=== PATIENT | female | born 1960 | race Caucasian/White ===

== ENCOUNTER 2016-04-01 10:36 | Outpatient (RCR) | payer MEDICARE, MEDICAID ==
--- OUTSIDE RECORDS SUMMARY | 2016-01-19 08:51 | XMS REPORT | Continuity of Care Document ---
Author Author [facility] Organization [facility] Address Unknown Phone Unavailable Care Team Providers Care Wide Area Network Administrator Name Role Phone NohemylorieRogelio PCP [phone] Source Comments Some departments are not documenting in the electronic medical record. If you do not see the information that you expected, contact Release of Information in the Health Information Management department at [phone] for further assistance in locating additional records.[facility] Active Allergies and Adverse Reactions No Known Allergies Current Medications Prescription Sig. Disp. Refills Start End Date Status Date promethazine (PHENERGAN) Take 25 mg by mouth every Active 25 mg tablet 6 hours as needed for Nausea. loperamide (IMODIUM) 2 mg Take 2 mg by mouth as Active capsule Needed for Diarrhea. baclofen (LIORESAL) 10 mg Take 10 mg by mouth three Active tablet times daily. ondansetron (ZOFRAN) 8 mg Take 8 mg by mouth every Active tablet 8 hours as needed for Nausea. fentaNYL (DURAGESIC) 75 Apply 1 Patch to top of Active mcg/hr patch skin as directed every 72 hours vitamins, multi stress Take 1 Tab by mouth Active formula (STRESS 600) tab daily. LORazepam (ATIVAN) 1 mg Take 1 mg by mouth every Active tablet 4 hours as needed for Nausea, Vomiting or Other.... potassium chloride(+) Take 10 mEq by mouth Active (MICRO-K) 10 mEq capsule daily. zolpidem (AMBIEN) 10 mg Take 10 mg by mouth at Active tablet bedtime as needed for Sleep. PARoxetine (PAXIL) 20 mg Take 20 mg by mouth Active tablet daily. levothyroxine (SYNTHROID) Take 75 mcg by mouth Active 75 mcg tablet daily. diazepam (VALIUM) 10 mg Take 10 mg by mouth every Active tablet 6 hours as needed for Anxiety. Active Problems Problem Noted Date Malignant neoplasm of sigmoid colon (HCC) 09/24/2015 Overview: 10/03/2011 sigmoid colon biopsy showing moderately differentiated adenocarcinoma 10/04/2011 surgery with sigmoid colectomy and small bowel resection, pathology revealed moderately differentiated adenocarcinoma extending through the muscularis into subserosal tissue, 19 lymph nodes were negative, KRAS not mutated, microsatellite instability stable 11/14/2011-02/14/2012 received FOLFOX chemotherapy x5 cycles with dose reduction 06/30/2015 PET scan: hypermetabolic masses in the pelvis abutting the colon proximal to the anastomosis 07/12/2005 in surgery small bowel resection, Munoz's procedure, removal of Prolene mesh 07/12/2005 and pathology with moderately differentiated adenocarcinoma within the small bowel wall consistent with metastatic colon carcinoma, margins free of tumor. No evidence of tumor within the omental fat 09/08/2015 FOLFOX plus Vectibix cycle 1, at about 90% doses 09/23/2015 FOLFOX plus Vectibix cycle 2 at 60% doses 09/25/2015 first visit at [facility], discussed use of Lomotil for diarrhea and possible imaging baseline and possible therapeutic options with the patient, see note Adult onset hypothyroidism 09/24/2015 Mood disorder (HCC) 09/24/2015 Overview: 09/25/2015 patient appears to have a significant history of anxiety and mood disorder. It looks like distress and side effects were chemotherapy have exacerbated this. Chronic hepatitis C without hepatic coma (HCC) 09/24/2015 Overview: Completed a course of Pegasys and ribavirin reported last hepatitis C viral load was undetectable History of drug abuse 09/24/2015 Overview: Past history of cocaine and marijuana use, IV drug abuse over 20 years ago Social History Tobacco Use Types Packs/Day Years Used Date Former Smoker Alcohol Use Drinks/Week oz/Week Comments No 0 Standard 0.0 drinks or equivalent Last Filed Vital Signs Vital Sign Reading Time Taken Blood Pressure 112/78 09/25/2015 11:31 AM CDT Pulse 91 09/25/2015 11:31 AM CDT Temperature 36.6 C (97.9 F) 09/25/2015 11:31 AM CDT Respiratory Rate 20 09/25/2015 11:31 AM CDT Height 1.613 m (5' 3.5") 09/25/2015 11:31 AM CDT Weight 58.06 kg (128 lb) 09/25/2015 11:31 AM CDT Body Mass Index 22.32 09/25/2015 11:31 AM CDT Oxygen Saturation 99% 09/25/2015 11:31 AM CDT Plan of Care Health Maintenance Due Date Last Done Comments Hepatitis C Screening 1959 Physical (Comprehensive) 1966 Exam Pertussis Vaccine 1970 Tetanus Vaccine 02/18/1976 Cervical Cancer Screening 02/18/1980 Breast Cancer Screening 1999 Colorectal Cancer 2009 Screening Influenza Vaccine 12/17/2015 Results from Last 3 Months Not on file
[2016-01-19 09:10] LABS: BASOPHILS # (AUTO) 0.1 10^3/uL (0.0-0.1); BASOPHILS % (AUTO) 1 % (0-10); EOSINOPHILS # (AUTO) 0.2 10^3/uL (0.0-0.3); EOSINOPHILS % (AUTO) 3 % (0-10); LYMPHOCYTES # (AUTO) 2.2 X 10^3 (1.0-4.0); LYMPHOCYTES % (AUTO) 43 % (12-44); MEAN CORPUSCULAR HEMOGLOBIN 27 PG (25-34); MEAN CORPUSCULAR HGB CONC 32 G/DL (32-36); MEAN CORPUSCULAR VOLUME 85 FL (80-99); MEAN PLATELET VOLUME 10.8 FL (7.4-10.4); MONOCYTES # (AUTO) 0.5 X 10^3 (0.0-1.0); MONOCYTES % (AUTO) 9 % (0-12); NEUTROPHILS # (AUTO) 2.3 X 10^3 (1.8-7.8); NEUTROPHILS % (AUTO) 44 % (42-75); PLATELET COUNT 151 10^3/uL (130-400); RED BLOOD COUNT 4.21 10^6/uL (4.35-5.85); RED CELL DISTRIBUTION WIDTH 16.4 % (10.0-14.5); WHITE BLOOD COUNT 5.2 10^3/uL (4.3-11.0)
[2016-01-19 09:37] LABS: ALANINE AMINOTRANSFERASE 8 U/L (0-55); ALBUMIN 3.5 G/DL (3.2-4.5); ANION GAP 10 MMOL/L (5-14); ASPARTATE AMINO TRANSFERASE 18 U/L (5-34); BILIRUBIN,TOTAL 0.4 MG/DL (0.1-1.0); BLOOD UREA NITROGEN 6 MG/DL (7-18); BUN/CREATININE RATIO 9; CALCIUM 8.9 MG/DL (8.5-10.1); CARBON DIOXIDE 22 MMOL/L (21-32); CHLORIDE 108 MMOL/L (98-107); GFR ESTIMATED > 60; GLUCOSE 84 MG/DL (70-105); MAGNESIUM 2.1 MG/DL (1.8-2.4); POTASSIUM 3.6 MMOL/L (3.6-5.0); SODIUM 140 MMOL/L (135-145); TOTAL PROTEIN 6.5 G/DL (6.4-8.2)
[2016-01-19 10:28] LABS: BILIRUBIN,URINE NEGATIVE (NEGATIVE); KETONES,URINE NEGATIVE (NEGATIVE); LEUKOCYTE ESTERASE ,URINE 1+ (NEGATIVE); NITRITE,URINE NEGATIVE (NEGATIVE); PH,URINE 7 (5-9); PROTEIN,URINE NEGATIVE (NEGATIVE); UROBILINOGEN,URINE NORMAL (NORMAL)
[2016-02-02 09:41] LABS: BASOPHILS % (AUTO) 1 % (0-10); EOSINOPHILS # (AUTO) 0.1 10^3/uL (0.0-0.3); EOSINOPHILS % (AUTO) 3 % (0-10); LYMPHOCYTES # (AUTO) 2.2 X 10^3 (1.0-4.0); LYMPHOCYTES % (AUTO) 56 % (12-44); MEAN CORPUSCULAR HEMOGLOBIN 28 PG (25-34); MEAN CORPUSCULAR HGB CONC 32 G/DL (32-36); MEAN CORPUSCULAR VOLUME 86 FL (80-99); MEAN PLATELET VOLUME 11.1 FL (7.4-10.4); MONOCYTES # (AUTO) 0.3 X 10^3 (0.0-1.0); MONOCYTES % (AUTO) 8 % (0-12); NEUTROPHILS # (AUTO) 1.3 X 10^3 (1.8-7.8); NEUTROPHILS % (AUTO) 32 % (42-75); PLATELET COUNT 170 10^3/uL (130-400); RED BLOOD COUNT 4.15 10^6/uL (4.35-5.85); RED CELL DISTRIBUTION WIDTH 16.6 % (10.0-14.5); WHITE BLOOD COUNT 3.9 10^3/uL (4.3-11.0)
[2016-02-02 10:05] LABS: ALANINE AMINOTRANSFERASE 11 U/L (0-55); ALBUMIN 3.6 G/DL (3.2-4.5); ANION GAP 12 MMOL/L (5-14); ASPARTATE AMINO TRANSFERASE 17 U/L (5-34); BILIRUBIN,TOTAL 0.2 MG/DL (0.1-1.0); BLOOD UREA NITROGEN 5 MG/DL (7-18); BUN/CREATININE RATIO 8; CARBON DIOXIDE 21 MMOL/L (21-32); CHLORIDE 106 MMOL/L (98-107); CREATININE SERUM 0.64 MG/DL (0.60-1.30); GFR ESTIMATED > 60; GLUCOSE 94 MG/DL (70-105); MAGNESIUM 2.1 MG/DL (1.8-2.4); POTASSIUM 3.8 MMOL/L (3.6-5.0); SODIUM 139 MMOL/L (135-145); TOTAL PROTEIN 6.7 G/DL (6.4-8.2)
[2016-02-09 10:36] LABS: BASOPHILS # (AUTO) 0.1 10^3/uL (0.0-0.1); BASOPHILS % (AUTO) 2 % (0-10); EOSINOPHILS # (AUTO) 0.1 10^3/uL (0.0-0.3); EOSINOPHILS % (AUTO) 3 % (0-10); LYMPHOCYTES # (AUTO) 1.5 X 10^3 (1.0-4.0); LYMPHOCYTES % (AUTO) 40 % (12-44); MEAN CORPUSCULAR HEMOGLOBIN 27 PG (25-34); MEAN CORPUSCULAR HGB CONC 31 G/DL (32-36); MEAN CORPUSCULAR VOLUME 88 FL (80-99); MEAN PLATELET VOLUME 10.5 FL (7.4-10.4); MONOCYTES # (AUTO) 0.5 X 10^3 (0.0-1.0); MONOCYTES % (AUTO) 14 % (0-12); NEUTROPHILS # (AUTO) 1.5 X 10^3 (1.8-7.8); NEUTROPHILS % (AUTO) 42 % (42-75); PLATELET COUNT 208 10^3/uL (130-400); RED BLOOD COUNT 3.96 10^6/uL (4.35-5.85); RED CELL DISTRIBUTION WIDTH 17.3 % (10.0-14.5); WHITE BLOOD COUNT 3.7 10^3/uL (4.3-11.0)
[2016-02-09 11:05] LABS: ANION GAP 9 MMOL/L (5-14); BLOOD UREA NITROGEN 6 MG/DL (7-18); BUN/CREATININE RATIO 8; CALCIUM 8.7 MG/DL (8.5-10.1); CARBON DIOXIDE 25 MMOL/L (21-32); CHLORIDE 109 MMOL/L (98-107); CREATININE SERUM 0.76 MG/DL (0.60-1.30); GFR ESTIMATED > 60; GLUCOSE 90 MG/DL (70-105); MAGNESIUM 1.9 MG/DL (1.8-2.4); SODIUM 143 MMOL/L (135-145)
[2016-02-22 13:06] LABS: BASOPHILS % (AUTO) 1 % (0-10); EOSINOPHILS # (AUTO) 0.1 10^3/uL (0.0-0.3); EOSINOPHILS % (AUTO) 3 % (0-10); LYMPHOCYTES # (AUTO) 1.6 X 10^3 (1.0-4.0); LYMPHOCYTES % (AUTO) 41 % (12-44); MEAN CORPUSCULAR HEMOGLOBIN 28 PG (25-34); MEAN CORPUSCULAR HGB CONC 31 G/DL (32-36); MEAN CORPUSCULAR VOLUME 88 FL (80-99); MEAN PLATELET VOLUME 10.8 FL (7.4-10.4); MONOCYTES # (AUTO) 0.4 X 10^3 (0.0-1.0); MONOCYTES % (AUTO) 9 % (0-12); NEUTROPHILS # (AUTO) 1.9 X 10^3 (1.8-7.8); NEUTROPHILS % (AUTO) 47 % (42-75); PLATELET COUNT 150 10^3/uL (130-400); RED BLOOD COUNT 3.92 10^6/uL (4.35-5.85); RED CELL DISTRIBUTION WIDTH 17.4 % (10.0-14.5)
[2016-02-22 13:32] LABS: ALANINE AMINOTRANSFERASE 10 U/L (0-55); ALBUMIN 3.5 G/DL (3.2-4.5); ANION GAP 7 MMOL/L (5-14); ASPARTATE AMINO TRANSFERASE 16 U/L (5-34); BILIRUBIN,TOTAL 0.3 MG/DL (0.1-1.0); BLOOD UREA NITROGEN 3 MG/DL (7-18); BUN/CREATININE RATIO 4; CALCIUM 8.8 MG/DL (8.5-10.1); CARBON DIOXIDE 27 MMOL/L (21-32); CHLORIDE 107 MMOL/L (98-107); CREATININE SERUM 0.68 MG/DL (0.60-1.30); GFR ESTIMATED > 60; GLUCOSE 86 MG/DL (70-105); POTASSIUM 3.8 MMOL/L (3.6-5.0); SODIUM 141 MMOL/L (135-145); TOTAL PROTEIN 6.1 G/DL (6.4-8.2)
[2016-03-15 13:33] LABS: BASOPHILS % (AUTO) 1 % (0-10); EOSINOPHILS # (AUTO) 0.2 10^3/uL (0.0-0.3); EOSINOPHILS % (AUTO) 3 % (0-10); LYMPHOCYTES # (AUTO) 1.8 X 10^3 (1.0-4.0); LYMPHOCYTES % (AUTO) 33 % (12-44); MEAN CORPUSCULAR HEMOGLOBIN 28 PG (25-34); MEAN CORPUSCULAR HGB CONC 32 G/DL (32-36); MEAN CORPUSCULAR VOLUME 89 FL (80-99); MEAN PLATELET VOLUME 10.9 FL (7.4-10.4); MONOCYTES # (AUTO) 0.6 X 10^3 (0.0-1.0); MONOCYTES % (AUTO) 11 % (0-12); NEUTROPHILS % (AUTO) 53 % (42-75); PLATELET COUNT 186 10^3/uL (130-400); RED BLOOD COUNT 4.04 10^6/uL (4.35-5.85); RED CELL DISTRIBUTION WIDTH 17.1 % (10.0-14.5); WHITE BLOOD COUNT 5.7 10^3/uL (4.3-11.0)
[2016-03-15 13:58] LABS: ALANINE AMINOTRANSFERASE 12 U/L (0-55); ALBUMIN 3.4 G/DL (3.2-4.5); ANION GAP 6 MMOL/L (5-14); ASPARTATE AMINO TRANSFERASE 23 U/L (5-34); BILIRUBIN,TOTAL 0.4 MG/DL (0.1-1.0); BLOOD UREA NITROGEN 9 MG/DL (7-18); BUN/CREATININE RATIO 13; CALCIUM 8.5 MG/DL (8.5-10.1); CARBON DIOXIDE 26 MMOL/L (21-32); CHLORIDE 109 MMOL/L (98-107); CREATININE SERUM 0.69 MG/DL (0.60-1.30); GFR ESTIMATED > 60; GLUCOSE 91 MG/DL (70-105); MAGNESIUM 1.9 MG/DL (1.8-2.4); POTASSIUM 3.8 MMOL/L (3.6-5.0); SODIUM 141 MMOL/L (135-145); TOTAL PROTEIN 5.8 G/DL (6.4-8.2)
[2016-03-30 09:34] LABS: BASOPHILS % (AUTO) 1 % (0-10); EOSINOPHILS # (AUTO) 0.2 10^3/uL (0.0-0.3); EOSINOPHILS % (AUTO) 4 % (0-10); LYMPHOCYTES # (AUTO) 1.8 X 10^3 (1.0-4.0); LYMPHOCYTES % (AUTO) 36 % (12-44); MEAN CORPUSCULAR HEMOGLOBIN 29 PG (25-34); MEAN CORPUSCULAR HGB CONC 32 G/DL (32-36); MEAN CORPUSCULAR VOLUME 90 FL (80-99); MEAN PLATELET VOLUME 11.3 FL (7.4-10.4); MONOCYTES # (AUTO) 0.5 X 10^3 (0.0-1.0); MONOCYTES % (AUTO) 9 % (0-12); NEUTROPHILS # (AUTO) 2.6 X 10^3 (1.8-7.8); NEUTROPHILS % (AUTO) 51 % (42-75); PLATELET COUNT 157 10^3/uL (130-400); RED BLOOD COUNT 4.14 10^6/uL (4.35-5.85); RED CELL DISTRIBUTION WIDTH 16.1 % (10.0-14.5)
[2016-03-30 10:09] LABS: ALANINE AMINOTRANSFERASE 25 U/L (0-55); ALBUMIN 3.6 G/DL (3.2-4.5); ANION GAP 13 MMOL/L (5-14); ASPARTATE AMINO TRANSFERASE 63 U/L (5-34); BILIRUBIN,TOTAL 0.3 MG/DL (0.1-1.0); BLOOD UREA NITROGEN 6 MG/DL (7-18); BUN/CREATININE RATIO 9; CALCIUM 8.6 MG/DL (8.5-10.1); CARBON DIOXIDE 20 MMOL/L (21-32); CHLORIDE 108 MMOL/L (98-107); CREATININE SERUM 0.67 MG/DL (0.60-1.30); GFR ESTIMATED > 60; GLUCOSE 105 MG/DL (70-105); MAGNESIUM 1.8 MG/DL (1.8-2.4); POTASSIUM 3.6 MMOL/L (3.6-5.0); SODIUM 141 MMOL/L (135-145); TOTAL PROTEIN 6.3 G/DL (6.4-8.2)
[~2016-04-01] VITALS: Ht 160 cm; Wt 61.2 kg
[~2016-04-01 10:36] MED LIST: ACETAMINOPHEN 325 MG TAB (TYLENOL) CANCER CTR PO PRN; ATROPINE INJ 0.4 MG/ML SDV (CANCER CENTER) INJ SCH; BACL10TA PO; CPR500T PO; CYCL10TA9 PO; D5W IV SCH; DIAZ-345 PO; DIAZ10TA3 PO; DICL100G13 TOP; ESTR1TAB24 PO; ESTR1TAB27 PO; FAMOTIDINE 20MG/2ML IV (CANCER CTR) IV SCH; FENT1PAT60 TD; FLC150T PO; FLU TRIvalent (5 YOA+) 2016-17 (CANCER CTR) 0.5 ML IM ONE; FLUOROURACIL IV SCH; FOSAPREPITANT 150 MG/NS 150 MG IVPB (CANCER CTR) IV PRN; HYDR-3583 PO; HYDR-3820 PO; IRINOTECAN HCL IV SCH; LEUCOVORIN CALCIUM IV SCH; LEVO75TA57 PO; LEVO75TA6 PO; LORazepam 0.5 MG (ATIVAN) TABLET CANCER CTR PO PRN; MIRT30TA6 PO; NS IV 1000 ML (CANCER CTR) IV SCH; NS IV SCH; OMEP20CA12 PO; OMEP20TA7 PO; ONDA8TAB13 PO; ONDANSETRON MDV (CANCER CENTER 16 MG, DEXAMETHASONE PF INJ (CANCER C 12 MG in NS (IVPB)... IV SCH; OXYC-12 PO; OXYC-197 PO; PANITUMUMAB IV SCH; PARO20TA5 PO; PARO20TA57 PO; PROM12.59 PO; PROM25TA14 PO; PRX20T PO; QTP25T PO; TRM50T PO; ZOLP10TA PO; ZOLP10TA5 PO; [UNRECOGNIZED DRUG - OTHER] IV SCH; diphenhydrAMINE 25 MG TAB (BENADRYL) CANCER CENTER PO SCH
[2016-04-13] MEDS ORDERED: POTA10TA10 PO ×2 (08:45)
[2016-04-13] MEDS ORDERED: TR1C15 TOP (08:45)
[2016-04-13] MEDS ORDERED: DOXY100C2 PO ×2 (08:45)
[2016-04-13] MEDS ORDERED: FENT1PAT10 TD ×2 (08:45)
[2016-04-13] MEDS ORDERED: DIAZ10TA3 PO ×2 (08:45)
[2016-04-13] MEDS ORDERED: ONDA8TAB12 PO ×2 (08:45)
[2016-04-13] MEDS ORDERED: LOPE2CAP PO ×2 (08:45)
[2016-04-25] MEDS ORDERED: Zolpidem Tartrate PO (14:37)
[2016-04-25] MEDS ORDERED: POTA10TA6 PO (14:37)
[2016-04-25] MEDS ORDERED: ONDA8TAB13 PO (14:37)
== END 2016-04-18 | disposition home or self-care (01) ==
LOC: ONC 10:36
PROVIDERS: ATTEND Internal Medicine Hematology & Oncology
DX: Z51.11 Encounter for antineoplastic chemotherapy (principal); C18.7 Malignant neoplasm of sigmoid colon; C78.4 Secondary malignant neoplasm of small intestine; D64.9 Anemia, unspecified; B18.2 Chronic viral hepatitis C; F32.9 Major depressive disorder, single episode, unspecified; R41.3 Other amnesia; M54.9 Dorsalgia, unspecified; R82.99 Other abnormal findings in urine; L27.1 Localized skin eruption due to drugs and medicaments taken internally; T45.1X5A Adverse effect of antineoplastic and immunosuppressive drugs, initial encounter; Z80.3 Family history of malignant neoplasm of breast; Z79.899 Other long term (current) drug therapy; Z92.21 Personal history of antineoplastic chemotherapy
CPT/HCPCS: 36591; 80048; 80053; 81000; 83735; 85025; 87088; 90471; 96360; 96367; 96368; 96375; 96411; 96413; 96415; 96417; 96521; 99213

== ENCOUNTER 2016-04-12 12:05 | Inpatient (IN) | payer MEDICARE, MEDICAID ==
[~2016-04-12] VITALS: Ht 160 cm; Wt 59.0 kg
[~2016-04-12 12:05] MED LIST changes: -ACETAMINOPHEN 325 MG TAB (TYLENOL) CANCER CTR PO PRN; -ATROPINE INJ 0.4 MG/ML SDV (CANCER CENTER) INJ SCH; -D5W IV SCH; -FAMOTIDINE 20MG/2ML IV (CANCER CTR) IV SCH; -FLU TRIvalent (5 YOA+) 2016-17 (CANCER CTR) 0.5 ML IM ONE; -FLUOROURACIL IV SCH; -FOSAPREPITANT 150 MG/NS 150 MG IVPB (CANCER CTR) IV PRN; -IRINOTECAN HCL IV SCH; -LEUCOVORIN CALCIUM IV SCH; -LORazepam 0.5 MG (ATIVAN) TABLET CANCER CTR PO PRN; -NS IV 1000 ML (CANCER CTR) IV SCH; -NS IV SCH; -ONDANSETRON MDV (CANCER CENTER 16 MG, DEXAMETHASONE PF INJ (CANCER C 12 MG in NS (IVPB)... IV SCH; -PANITUMUMAB IV SCH; -[UNRECOGNIZED DRUG - OTHER] IV SCH; -diphenhydrAMINE 25 MG TAB (BENADRYL) CANCER CENTER PO SCH
--- OUTSIDE RECORDS SUMMARY | 2016-04-12 12:11 | XMS REPORT | Continuity of Care Document ---
Author Author [facility] Organization [facility] Address Unknown Phone Unavailable Care Team Providers Care Java Sybase Developer Name Role Phone NohemylorieRogelio PCP [phone] Source Comments Some departments are not documenting in the electronic medical record. If you do not see the information that you expected, contact Release of Information in the Health Information Management department at [phone] for further assistance in locating additional records.[facility] Active Allergies and Adverse Reactions No Known [...] at 60% doses 09/25/2015 first visit at [facility], discussed use of Lomotil for diarrhea [...]
--- NOTE | 2016-04-12 13:36 | ED Abdominal Pain ---
General Stated Complaint: VOMITING ABD/BACK PAIN FEVER Source of Information: Patient, Family Exam Limitations: No Limitations History of Present Illness Time Seen By Provider: 13:34 Initial Comments Patient has stage IV colon cancer. She has had abdominal pain radiating through to her back for the past several weeks. She had a CAT scan ordered but has been too sick to go. She is nauseated but has not vomited. She has not eaten or drank much of anything. Patient reports a fever of 101. Denies cough. Patient and family want CT done today but did not want IV contrast. Allergies and Home Medications Allergies Coded Allergies: oxaliplatin (Verified Allergy, Severe, 01/07/16) Home Medications Baclofen 10 Mg Tablet 10 MG PO TID PRN PRN MUSCLE SPASMS (Reported) Diazepam 10 Mg Tablet 10 MG PO QID PRN PRN ANXIETY (Reported) Estradiol 1 Mg Tablet 1 MG PO DAILY (Reported) Fentanyl 1 Each Patch.td72 #5 100 MCG TD Q72H Prescribed by: UNRIA ALONSO on 07/27/15 1229 Hydrocodone/Acetaminophen 1 Each Tablet 1-2 EACH PO Q4H PRN PRN PAIN (Reported) Levothyroxine Sodium 75 Mcg Tablet 75 MG PO (Reported) Omeprazole 20 Mg Capsule.dr 20 MG PO DAILY (Reported) Ondansetron 8 Mg Tab.rapdis 8 MG PO Q8H PRN PRN NAUSEA/VOMITING (Reported) Oxycodone HCl/Acetaminophen 1 Each Tablet #40 1 EACH PO Q4H PRN PRN PAIN Prescribed by: NURIA ALONSO on 07/27/15 1230 Paroxetine HCl 20 Mg Tablet 40 MG PO DAILY (Reported) TAKES 2 (20 MG) TABLETS Zolpidem Tartrate 10 Mg Tablet 10 MG PO HS (Reported) Review of Systems Constitutional: fever malaise weakness EENTM: No Symptoms Reported Respiratory: No Symptoms Reported Cardiovascular: No Symptoms Reported Gastrointestinal: Abdominal Pain Nausea Poor AppetiteDenies Vomiting Genitourinary: No Symptoms Reported Musculoskeletal: no symptoms reported All Other Systems Reviewed Negative Unless Noted: Yes Past Nlufftl-Ymfrtm-Pubfbz Hx Patient Social History Former Smoker/When Quit: Apr 17, 2010 Recent Foreign Travel: No Contact w/Someone Who Travel: No Immunizations Up To Date Tetanus Booster (TDap): Unknown Date of Pneumonia Vaccine: Jul 19, 2011 Date of Influenza Vaccine: Jan 15, 2015 Surgeries HX Surgeries: Yes (HERNIA, CYST FROM NECK, OVARIAN CYST, COLON RESECTION) Surgeries: Appendectomy, Bowel Surgery, Gallbladder, Hysterectomy Respiratory Hx Respiratory Disorders: Yes (MILD COPD, ASTHMA A CHILD) Respiratory Disorders: COPD Cardiovascular Hx Cardiac Disorders: No Neurological Hx Neurological Disorders: No Reproductive System Hx Reproductive Disorders: No Genitourinary Hx Genitourinary Disorders: No Gastrointestinal Hx Gastrointestinal Disorders: Yes (HX COLON CANCER) Gastrointestinal Disorders: Hepatitis Musculoskeletal Hx Musculoskeletal Disorders: Yes Musculoskeletal Disorders: Arthritis, Chronic Back Pain Endocrine Hx Endocrine Disorders: Yes Endocrine Disorders: Hypothyroidsim HEENT HX ENT Disorders: No (GLASSES, FULL SET OF DENTURES) Cancer Hx Cancer: Yes Cancer: Colon Psychosocial Hx Psychiatric Problems: Yes Behavioral Health Disorders: Anxiety, Depression Integumentary HX Skin/Integumentary Disorder: No Skin/Integumentary Disorders: Pruritis Blood Transfusions Hx Blood Disorders: Yes (ANEMIA) Reviewed Nursing Assessment Reviewed/Agree w Nursing PMH: Yes Family Medical History Significant Family History: Heart Disease Family Medial History: Arthritis G8 BROTHER G8 SISTER FH: breast cancer 19 MOTHER Myocardial infarction 19 FATHER Physical Exam Vital Signs VS - Last 72 Hours, by Label 04/12/16 04/12/16 04/12/16 13:12 13:55 15:18 Temp 98.1 98.1 98.1 Pulse 86 Resp 18 B/P 105/65 Pulse Ox 99 O2 Delivery Room Air Capillary Refill : General Appearance: WD/WN mild distress HEENT: PERRL/EOMI pharynx normal Neck: supple Respiratory: lungs clear normal breath sounds Cardiovascular: regular rate, rhythm no edema Gastrointestinal: soft abnormal bowel sounds (decreased bowel sounds) distendedNo guarding, No rebound, tenderness (diffusely tender) other (left lower quadrant colostomy) Neurologic/Psychiatric: alert normal mood/affect Skin: normal color warm/dry Progress/Results/Core Measures Results/Orders Lab Results Laboratory Tests Test 04/12/16 13:45 04/12/16 14:10 Range/Units Activated Partial Thromboplast Time 46 H 24-35 SEC Alanine Aminotransferase (ALT/SGPT) 15 0-55 U/L Albumin 3.0 L 3.2-4.5 G/DL Alkaline Phosphatase 76 40-136 U/L Anion Gap 14 5-14 MMOL/L Anisocytosis SLIGHT Aspartate Amino Transf (AST/SGOT) 17 5-34 U/L BUN/Creatinine Ratio 16 Band Neutrophils 4 % Basophils # (Auto) 0.0 0.0-0.1 10^3/uL Basophils % (Manual) 0 % Basophils (%) (Auto) 0 0-10 % Blood Urea Nitrogen 9 7-18 MG/DL Calcium Level 8.4 L 8.5-10.1 MG/DL Carbon Dioxide Level 21 21-32 MMOL/L Chloride Level 98 98-107 MMOL/L Creatinine 0.58 L 0.60-1.30 MG/DL Eosinophils # (Auto) 0.0 0.0-0.3 10^3/uL Eosinophils % (Manual) 3 % Eosinophils (%) (Auto) 1 0-10 % Estimat Glomerular Filtration Rate > 60 Glucose Level 112 H 70-105 MG/DL Hematocrit 33 L 35-52 % Hemoglobin 10.9 L 11.5-16.0 G/DL INR Comment 1.4 0.8-1.4 Lipase 8 8-78 U/L Lymphocytes # (Auto) 1.1 1.0-4.0 X 10^3 Lymphocytes % (Manual) 47 % Lymphocytes (%) (Auto) 35 12-44 % Magnesium Level 1.3 L 1.8-2.4 MG/DL Mean Corpuscular Hemoglobin 29 25-34 PG Mean Corpuscular Hemoglobin Concent 33 32-36 G/DL Mean Corpuscular Volume 85 80-99 FL Mean Platelet Volume 11.3 H 7.4-10.4 FL Monocytes # (Auto) 0.7 0.0-1.0 X 10^3 Monocytes % (Manual) 24 % Monocytes (%) (Auto) 22 H 0-12 % Neutrophils # (Auto) 1.3 L 1.8-7.8 X 10^3 Neutrophils % (Manual) 22 % Neutrophils (%) (Auto) 41 L 42-75 % Platelet Count 161 130-400 10^3/uL Polychromasia SLIGHT Potassium Level 3.2 L 3.6-5.0 MMOL/L Prothrombin Time 17.3 H 12.2-14.7 SEC Red Blood Count 3.83 L 4.35-5.85 10^6/uL Red Cell Distribution Width 15.6 H 10.0-14.5 % Sodium Level 133 L 135-145 MMOL/L Spherocytes SLIGHT Total Bilirubin 0.8 0.1-1.0 MG/DL Total Protein 5.6 L 6.4-8.2 G/DL White Blood Count 3.1 L 4.3-11.0 10^3/uL Urine Bacteria FEW H /HPF Urine Bilirubin 1+ H NEGATIVE Urine Casts NONE /LPF Urine Clarity CLEAR Urine Color AYAN H Urine Crystals NONE /LPF Urine Culture Indicated YES Urine Glucose (UA) 1+ H NEGATIVE Urine Ketones 4+ H NEGATIVE Urine Leukocyte Esterase 1+ H NEGATIVE Urine Mucus MODERATE H /LPF Urine Nitrite NEGATIVE NEGATIVE Urine Protein 2+ H NEGATIVE Urine RBC 10-25 H /HPF Urine RBC (Auto) 4+ H NEGATIVE Urine Specific [place] 1.020 1.016-1.022 Urine Squamous Epithelial Cells 2-5 /HPF Urine Urobilinogen 4 H NORMAL MG/DL Urine WBC 2-5 /HPF Urine pH 6 5-9 My Orders Orders-JESSICA QUINONES MD Cbc With Automated Diff (04/12/16 13:32) Comprehensive Metabolic Panel (04/12/16 13:32) Lipase (04/12/16 13:32) Magnesium (04/12/16 13:32) Protime With Inr (04/12/16 13:32) Partial Thromboplastin Time (04/12/16 13:32) Ua Culture If Indicated (04/12/16 13:32) Ns Iv 1000 Ml (Sodium Chloride 0.9%) (04/12/16 13:45) Fentanyl Injection (Sublimaze Injection (04/12/16 13:45) Ct Chest/Abdomen/Pelvis Wo (04/12/16 13:38) Manual Differential (04/12/16 13:45) Ondansetron Injection (Zofran Injectio (04/12/16 14:00) Ondansetron Injection (Zofran Injectio (04/12/16 13:55) Urine Culture (04/12/16 14:10) Fentanyl Injection (Sublimaze Injection (04/12/16 14:45) Lidocaine 2% (Urojet) (Xylocaine Urojet) (04/12/16 15:15) Ng Tube Insert & Assessment (04/12/16 15:12) Medications Given in ED Current Medications Medications Dose Ordered Sig/Juan Route Start Time Stop Time Status Last Admin Dose Admin Fentanyl Citrate 100 mcg ONCE ONCE IV 04/12/16 13:45 04/12/16 13:46 DC 04/12/16 13:55 100 MCG Fentanyl Citrate 100 mcg ONCE ONCE IVP 04/12/16 14:45 04/12/16 14:46 DC 04/12/16 15:18 100 MCG Lidocaine HCl 10 ml ONCE ONCE TOP 04/12/16 15:15 04/12/16 15:16 DC 04/12/16 15:18 10 ML Ondansetron HCl 4 mg STK-MED ONCE .ROUTE 04/12/16 13:55 04/12/16 14:03 DC 04/12/16 14:06 4 MG Sodium Chloride 1,000 ml ONCE ONCE IV 04/12/16 13:45 04/12/16 13:46 DC 04/12/16 13:55 1,000 ML Vital Signs/I&O Vital Sign - Last 12Hours 04/12/16 04/12/16 04/12/16 13:12 13:55 15:18 Temp 98.1 98.1 98.1 Pulse 86 Resp 18 B/P 105/65 Pulse Ox 99 O2 Delivery Room Air Diagnostic Imaging Comments Date of Exam:04/12/16 CT CHEST/ABDOMEN/PELVIS WO PROCEDURE: CT chest, abdomen, and pelvis without contrast. TECHNIQUE: Multiple contiguous axial images were obtained through the chest, abdomen, and pelvis without the use of intravenous contrast. INDICATION: History of colon cancer. Abdominal and pelvic pain. Fever and nausea. FINDINGS: CT chest: This is stable basilar left lower lobe pulmonary nodule measuring 5 mm without change from 12/29/2015, exam. There is no significant consolidation, mass, or suspicious nodule seen otherwise. There are mild emphysema changes seen in the upper lobes. The heart size is normal. There is no pericardial or pleural effusion. The thoracic aorta is normal in caliber. There is no mediastinal mass or significantly enlarged lymph node. The hilar vessels are not opacified with no adjacent definite mass or lymphadenopathy is seen. No axillary lymphadenopathy is noted. The osseous structures appear grossly unremarkable. CT abdomen and pelvis: The liver, the spleen, the pancreas, and the right adrenal gland appear unremarkable. The left adrenal gland demonstrates a nodule measuring 2.2 cm in size with fluid attenuation stable compared to 07/04/2015, exam likely related to adrenal adenoma. This is stable from 2012 exam. There are surgical clips in the gallbladder bed. There are multiple dilated bowel loops with air-fluid levels seen with suggestion of decompressed terminal ileum and suggestion of transition point in the upper pelvis. There is a left lower quadrant colostomy. No significant free fluid or fluid collection in the abdomen or pelvis seen. The abdominal aorta is normal in caliber. The kidneys demonstrate no hydronephrosis. There is no urinary tract stone seen. The osseous structures appear grossly unremarkable. IMPRESSION: CT chest: Stable nonspecific 5-mm left lung base nodule. CT abdomen and pelvis: 1. Significantly dilated small bowel loops with suggestion of transition to decompressed terminal ileum in the pelvis suggestive of high-grade partial small bowel obstruction. 2. Stable 2.2-cm left adrenal nodule from 2012 exam suggestive of an adenoma. Departure Communication Time/Spoke to Admitting Phy: 15:11 Communication I spoke with Dr. Butcher who agrees to admit. We'll start patient on PATIENT OBSERVER pump. Also discussed with Dr. Alonso. He will see patient in the morning. Impression Impression: Primary Impression: metastatic colon cancer with small bowel obstruction Disposition: ADMITTED INPATIENT Condition: Stable Decision to Admit Reason: Admit from ER (General) Decision to Admit/Date: Apr 12, 2016 Time/Decision to Admit Time: 15:12 Departure-Patient Inst. Referrals: NO,LOCAL PHYSICIAN (PCP/Family) Primary Care Physician JESSICA QUINONES MD Apr 12, 2016 13:36
[2016-04-12] MEDS ORDERED: NS 1000 ML IV BAG IV ONE (13:45)
[2016-04-12] MEDS ORDERED: fentaNYL INJECTION 100 MCG/2 ML AMP IV ONE (13:45)
[2016-04-12 13:54] LABS: BASOPHILS % (AUTO) 0 % (0-10); EOSINOPHILS % (AUTO) 1 % (0-10); LYMPHOCYTES # (AUTO) 1.1 X 10^3 (1.0-4.0); LYMPHOCYTES % (AUTO) 35 % (12-44); MEAN CORPUSCULAR HEMOGLOBIN 29 PG (25-34); MEAN CORPUSCULAR HGB CONC 33 G/DL (32-36); MEAN CORPUSCULAR VOLUME 85 FL (80-99); MEAN PLATELET VOLUME 11.3 FL (7.4-10.4); MONOCYTES # (AUTO) 0.7 X 10^3 (0.0-1.0); MONOCYTES % (AUTO) 22 % (0-12); NEUTROPHILS # (AUTO) 1.3 X 10^3 (1.8-7.8); NEUTROPHILS % (AUTO) 41 % (42-75); PLATELET COUNT 161 10^3/uL (130-400); RED BLOOD COUNT 3.83 10^6/uL (4.35-5.85); RED CELL DISTRIBUTION WIDTH 15.6 % (10.0-14.5); WHITE BLOOD COUNT 3.1 10^3/uL (4.3-11.0)
[2016-04-12] MEDS ORDERED: ONDANSETRON 4 MG/2 ML (SDV) Z0FRAN ONE (13:55)
[2016-04-12] MEDS ORDERED: ONDANSETRON 4 MG/2 ML (SDV) Z0FRAN IVP ONE (14:00)
[2016-04-12 14:05] LABS: INR 1.4 (0.8-1.4); PROTHROMBIN TIME PATIENT 17.3 SEC (12.2-14.7)
[2016-04-12 14:15] LABS: ALANINE AMINOTRANSFERASE 15 U/L (0-55); ANION GAP 14 MMOL/L (5-14); ASPARTATE AMINO TRANSFERASE 17 U/L (5-34); BILIRUBIN,TOTAL 0.8 MG/DL (0.1-1.0); BLOOD UREA NITROGEN 9 MG/DL (7-18); BUN/CREATININE RATIO 16; CALCIUM 8.4 MG/DL (8.5-10.1); CARBON DIOXIDE 21 MMOL/L (21-32); CHLORIDE 98 MMOL/L (98-107); CREATININE SERUM 0.58 MG/DL (0.60-1.30); GFR ESTIMATED > 60; GLUCOSE 112 MG/DL (70-105); LIPASE 8 U/L (8-78); MAGNESIUM 1.3 MG/DL (1.8-2.4); POTASSIUM 3.2 MMOL/L (3.6-5.0); SODIUM 133 MMOL/L (135-145); TOTAL PROTEIN 5.6 G/DL (6.4-8.2)
[2016-04-12 14:19] LABS: KETONES,URINE 4+ (NEGATIVE); LEUKOCYTE ESTERASE ,URINE 1+ (NEGATIVE); NITRITE,URINE NEGATIVE (NEGATIVE); PH,URINE 6 (5-9); PROTEIN,URINE 2+ (NEGATIVE); UROBILINOGEN,URINE 4 MG/DL (NORMAL)
[2016-04-12 14:29] LABS: ANISOCYTOSIS SLIGHT; BAND NEUTROPHILS 4 %; BASOPHILS % (MANUAL) 0 %; EOSINOPHILS % (MANUAL) 3 %; LYMPHOCYTES % (MANUAL) 47 %; NEUTROPHILS % (MANUAL) 22 %; POLYCHROMASIA SLIGHT; SPHEROCYTES SLIGHT
--- NOTE | 2016-04-12 14:42 | Diagnostic Imaging Report ---
PROCEDURE: CT chest, abdomen, and pelvis without contrast. TECHNIQUE: Multiple contiguous axial images were obtained through the chest, abdomen, and pelvis without the use of intravenous contrast. INDICATION: History of colon cancer. Abdominal and pelvic pain. Fever and nausea. FINDINGS: CT chest: This is stable basilar left lower lobe pulmonary nodule measuring 5 mm without change from 12/29/2015, exam. There is no significant consolidation, mass, or suspicious nodule seen otherwise. There are mild emphysema changes seen in the upper lobes. The heart size is normal. There is no pericardial or pleural effusion. The thoracic aorta is normal in caliber. There is no mediastinal mass or significantly enlarged lymph node. The hilar vessels are not opacified with no adjacent definite mass or lymphadenopathy is seen. No axillary lymphadenopathy is noted. The osseous structures appear grossly unremarkable. CT abdomen and pelvis: The liver, the spleen, the pancreas, and the right adrenal gland appear unremarkable. The left adrenal gland demonstrates a nodule measuring 2.2 cm in size with fluid attenuation stable compared to 07/04/2015, exam likely related to adrenal adenoma. This is stable from 2012 exam. There are surgical clips in the gallbladder bed. There are multiple dilated bowel loops with air-fluid levels seen with suggestion of decompressed terminal ileum and suggestion of transition point in the upper pelvis. There is a left lower quadrant colostomy. No significant free fluid or fluid collection in the abdomen or pelvis seen. The abdominal aorta is normal in caliber. The kidneys demonstrate no hydronephrosis. There is no urinary tract stone seen. The osseous structures appear grossly unremarkable. IMPRESSION: CT chest: Stable nonspecific 5-mm left lung base nodule. CT abdomen and pelvis: 1. Significantly dilated small bowel loops with suggestion of transition to decompressed terminal ileum in the pelvis suggestive of high-grade partial small bowel obstruction. 2. Stable 2.2-cm left adrenal nodule from 2012 exam suggestive of an adenoma. The findings were discussed with Dr. Mcduffie by Dr. Lujan at time of dictation. Dictated by: Dictated on workstation # [id number]
[2016-04-12] MEDS ORDERED: fentaNYL INJECTION 100 MCG/2 ML AMP IVP ONE (14:45)
[2016-04-12] MEDS ORDERED: LIDOCAINE UROJET 2% GEL 10 ML PKG TOP ONE (15:15)
[2016-04-12] MEDS ORDERED: DIAZEPAM INJ 10 MG/2 ML (VALIUM) SYR IV ONE (15:45)
--- NOTE | 2016-04-12 16:03 | Diagnostic Imaging Report ---
KUB. INDICATION: Post NG tube placement. FINDINGS: The NG tube distal tip is in the lower chest correlating with the distal esophagus. It needs to be advanced by at least 12 cm. Multiple surgical clips are seen in the abdomen and pelvis. Mildly dilated small bowel loops are noted. Surgical clips in the pelvis and anastomotic sutures are also seen. IMPRESSION: The NG tube terminates in the distal esophagus. It needs to be advanced by at least 12 cm into the mid stomach. Dictated by: Dictated on workstation # [id number]
--- NOTE | 2016-04-12 16:34 | Diagnostic Imaging Report ---
Portable upright radiograph of the chest. INDICATION: Tube placement. FINDINGS: The NG tube is still in the distal esophagus similar to the prior exam. The lungs appear clear. There is an infusion port in place. No effusion or pneumothorax. IMPRESSION: The NG tube is still in the distal esophagus. It needs to be advanced by 10 cm into the stomach. Dictated by: Dictated on workstation # [id number]
[2016-04-12] MEDS ORDERED: METOCLOPRAMIDE INJ 10 MG/2 ML (REGLAN) IV PRN (17:15)
[2016-04-12] MEDS ORDERED: diphenhydrAMINE 50 MG/ML INJ (BENADRYL) IV PRN (17:15)
[2016-04-12] MEDS ORDERED: NS IV 500 ML PCA CARRIER FLUID IV SCH (17:15)
[2016-04-12] MEDS ORDERED: NS W/KCL 20 MEQ/L 1,000 ML IV SCH (17:15)
[2016-04-12] MEDS ORDERED: NALOXONE 0.4 MG/ML 1 ML (NARCAN) VIAL IV PRN (17:15)
--- NOTE | 2016-04-12 17:30 | Oncology History & Physical ---
Visit Information Visit Information Date of Admission Apr 12, 2016 at 15:22 Attending Physician Juan C Howard MD Admitting Physician No,Local Physician Chief Complaint abdominal pain, fever, diarrhea and vomiting. Interval History Ms. Stuart is a 56 year old white female with recurrent colon cancer and multiple serosal metastasis of small bowel who presented to ER with fever, abdominal pain, diarrhea and vomiting for a week and progressively worse over last 2 days. At ER, she was found to have small bowel obstruction and admitted to our service with surgery consult. NG tube was placed at ER. Pt was given Fentanyl IV for pain control. Last chemo FOLFIRI was given 2 weeks ago. PMH: 1. Tumor Recurrence with multiple serosal metastases seen on PET/CT with pathologic confirmation of small bowel metastasis obtained at exploratory laparotomy done July 13, 2015. a. 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 2. Chronic hepatitis-C -- treatment successfully completed 2013. 3. Chronic anemia. 4. History of depression and remote history of IV drug use more than 20 years ago. 5. Extensive family history of breast cancer. PRIOR THERAPY: 1. Status post sigmoid colectomy with 19 lymph nodes examined, which were negative for malignancy on 10/04/11. pT3 N0 M0. KRAS wild type. Microsatellite stable phenotype. 2. Adjuvant FOLFOX initiated 11/14/11. Five cycles completed. Chemotherapy discontinued secondary to intolerance and prolonged myelosuppression. 3. Vectibix plus FOLFOX initiated on O6 and 6 cycles were completed prior to patient developing oxaliplatin reaction. 4. Vectibix plus FOLFIRI was initiated on 01/19/16 and is ongoing. I consulted the patient on: 04/12/16 17:26 Constitutional: chills weakness Respiratory: no symptoms reported Cardiovascular: no symptoms reported Gastrointestinal: abdominal pain diarrhea nausea vomiting Genitourinary: no symptoms reported Psychiatric/Neurological: Anxiety Depressed Health Status Allergies Coded Allergies: oxaliplatin (Verified Allergy, Severe, 01/07/16) Home Medications Baclofen (Baclofen) 10 Mg Tablet 10 MG PO TID PRN PRN MUSCLE SPASMS (Reported) Diazepam (Diazepam) 10 Mg Tablet 10 MG PO QID PRN PRN ANXIETY (Reported) Estradiol (Estradiol Tablet) 1 Mg Tablet 1 MG PO DAILY (Reported) Fentanyl (Duragesic Patch 100MCG) 1 Each Patch.td72 #5 100 MCG TD Q72H Prescribed by: NURIA ALONSO on 07/27/15 1229 Hydrocodone/Acetaminophen (Hydrocodon-Acetaminophn 10-325) 1 Each Tablet 1-2 EACH PO Q4H PRN PRN PAIN (Reported) Levothyroxine Sodium (Levothyroxine Sodium) 75 Mcg Tablet 75 MG PO (Reported) Omeprazole (Omeprazole) 20 Mg Capsule.dr 20 MG PO DAILY (Reported) Ondansetron (Ondansetron Odt) 8 Mg Tab.rapdis 8 MG PO Q8H PRN PRN NAUSEA/ VOMITING (Reported) Oxycodone HCl/Acetaminophen (Percocet 5-325 mg Tablet) 1 Each Tablet #40 1 EACH PO Q4H PRN PRN PAIN Prescribed by: NURIA ALONSO on 07/27/15 1230 Paroxetine HCl (Paroxetine HCl) 20 Mg Tablet 40 MG PO DAILY (Reported) TAKES 2 (20 MG) TABLETS Zolpidem Tartrate (Zolpidem Tartrate) 10 Mg Tablet 10 MG PO HS (Reported) KJW-Wpffeo-Iwzsar Hx Patient Social History Alcohol Use: Past History Recreational Drug Use: Yes (20 YRS AGO HX SUICIDE ATTEMPT) Smoking Status: Former Smoker Former smoker/When Quit: Apr 17, 2010 Recent Foreign Travel: No Contact w/other who traveled: No Recent Infectious Disease Expo: No Recent Hopitalizations: Yes Physical Abuse Screen: No Sexual Abuse: No Immunizations Up To Date Tetanus Booster (TDap): Unknown Date of Pneumonia Vaccine: Jul 19, 2011 Date of Influenza Vaccine: Jan 15, 2015 Family Medical History Significant Family History: Heart Disease Family History: Arthritis G8 BROTHER G8 SISTER FH: breast cancer 19 MOTHER Myocardial infarction 19 FATHER Data Review Labs Laboratory Tests 04/12/16 13:45 Laboratory Tests 04/12/16 13:45: Activated Partial Thromboplast Time 46H, Albumin 3.0L, Calcium Level 8.4L, Creatinine 0.58L, Glucose Level 112H, Hematocrit 33L, Hemoglobin 10.9L, Magnesium Level 1.3L, Mean Platelet Volume 11.3H, Monocytes (%) (Auto) 22H, Neutrophils # (Auto) 1.3L, Neutrophils (%) (Auto) 41L, Potassium Level 3.2L, Prothrombin Time 17.3H, Red Blood Count 3.83L, Red Cell Distribution Width 15.6H , Sodium Level 133L, Total Protein 5.6L, White Blood Count 3.1L 04/12/16 14:10: Urine Bacteria FEWH, Urine Bilirubin 1+H, Urine Color AMBERH, Urine Glucose (UA ) 1+H, Urine Ketones 4+H, Urine Leukocyte Esterase 1+H, Urine Mucus MODERATEH, Urine Protein 2+H, Urine RBC 10-25H, Urine RBC (Auto) 4+H, Urine Urobilinogen 4H Physical Exam Vital Signs Vital Sign - Last 12Hours 04/12/16 13:12 Temp 98.1 Pulse 86 Resp 18 B/P 105/65 Pulse Ox 99 O2 Delivery Room Air Capillary Refill : Less Than 3 Seconds General Appearance: Moderate Distress Other (abdominal pain) HEENT: PERRL/EOMI Neck: Non Tender Supple Respiratory: Chest Non Tender Lungs Clear Cardiovascular: Regular Rate, Rhythm No Edema No Gallop Gastrointestinal: Soft Abnormal Bowel Sounds Distended Tenderness Other ( colostomy bag and lesion/pus at one corner) Extremity: Non Tender No Pedal Edema Neurologic/Psychiatric: Alert Oriented x3 Skin: Warm/Dry Impression & Plan Impression & Plan 1. Metastatic Colon Cancer with multiple serosal metastases is seen on PET/CT with pathologic confirmation of small bowel metastasis obtained at exploratory laparotomy done July 13, 2015 on Vectibix plus FOLFIRI, Cycle 5 was given 2 weeks ago. 2. Small bowel obstruction and uncontrolled pain. 3. n/v/d dehydration 4. hypokalemia 5. fever, colitis? 6. History of depression 7 Hypothyroidism 8. History of chronic back pain due to discogenic disease. 9. Remote history of substance abuse and excessive alcohol use Plan: 1. NG tube and suction. 2. TAILER IN fentanyl for pain control. 3. Empirical IV antibiotics for fever and possible colitis. Levaquin and Flagyl. 4. IV clinimax for nutrition and hydration 5. surgical consult JUAN C HOWARD MD Apr 12, 2016 17:30
[2016-04-12] MEDS: fentaNYL PCA 300 MCG/30 ML VIAL IV PRN (17:55)
[2016-04-12] MEDS: ONDANSETRON 4 MG/2 ML (SDV) Z0FRAN IV PRN (17:56)
[2016-04-12] MEDS ORDERED: LORazepam INJ 2 MG/ML (ATIVAN) VIAL IVP PRN (18:00)
[2016-04-12 20:11] VITALS: BP 105/56
[2016-04-12] MEDS: AA 4.25% W/LYTES IN D5W IV SOL 1,000 ML IV SCH (21:08)
[2016-04-12] MEDS: metroNIDAZOLE 500MG/100ML IVPB 100 ML IV SCH (21:08)
[2016-04-12 21:31] LABS: PH,URINE 6 (5-9); PROTEIN,URINE 1+ (NEGATIVE)
[2016-04-12 21:32] LABS: BILIRUBIN,URINE NEGATIVE (NEGATIVE); KETONES,URINE 4+ (NEGATIVE); LEUKOCYTE ESTERASE ,URINE NEGATIVE (NEGATIVE); NITRITE,URINE NEGATIVE (NEGATIVE); SQUAMOUS EPITHELIAL CELL,UR 0-2 /HPF; UROBILINOGEN,URINE 1 MG/DL (NORMAL)
[2016-04-13] VITALS: BP 96/59
[2016-04-13 04:55] VITALS: BP 100/66
[2016-04-13] MEDS: AA 4.25% W/LYTES IN D5W IV SOL 1,000 ML IV SCH ×4 (05:18→23:53)
[2016-04-13 05:52] LABS: BASOPHILS % (AUTO) 0 % (0-10); EOSINOPHILS # (AUTO) 0.1 10^3/uL (0.0-0.3); EOSINOPHILS % (AUTO) 2 % (0-10); LYMPHOCYTES # (AUTO) 2.7 X 10^3 (1.0-4.0); LYMPHOCYTES % (AUTO) 52 % (12-44); MEAN CORPUSCULAR HEMOGLOBIN 29 PG (25-34); MEAN CORPUSCULAR HGB CONC 33 G/DL (32-36); MEAN CORPUSCULAR VOLUME 86 FL (80-99); MEAN PLATELET VOLUME 11.2 FL (7.4-10.4); MONOCYTES # (AUTO) 0.8 X 10^3 (0.0-1.0); MONOCYTES % (AUTO) 15 % (0-12); NEUTROPHILS # (AUTO) 1.6 X 10^3 (1.8-7.8); NEUTROPHILS % (AUTO) 30 % (42-75); PLATELET COUNT 203 10^3/uL (130-400); RED CELL DISTRIBUTION WIDTH 15.9 % (10.0-14.5); WHITE BLOOD COUNT 5.2 10^3/uL (4.3-11.0)
[2016-04-13 06:20] LABS: ALANINE AMINOTRANSFERASE 15 U/L (0-55); ALBUMIN 2.7 G/DL (3.2-4.5); ANION GAP 11 MMOL/L (5-14); ASPARTATE AMINO TRANSFERASE 20 U/L (5-34); BILIRUBIN,TOTAL 0.5 MG/DL (0.1-1.0); BLOOD UREA NITROGEN 10 MG/DL (7-18); BUN/CREATININE RATIO 16; CALCIUM 8.1 MG/DL (8.5-10.1); CARBON DIOXIDE 21 MMOL/L (21-32); CHLORIDE 102 MMOL/L (98-107); CREATININE SERUM 0.62 MG/DL (0.60-1.30); GFR ESTIMATED > 60; GLUCOSE 102 MG/DL (70-105); POTASSIUM 3.1 MMOL/L (3.6-5.0); SODIUM 134 MMOL/L (135-145)
[2016-04-13] MEDS ORDERED: FLU TRIvalent (5 YOA+) 2016-17 (AFLURIA) 0.5 ML IM ONE (07:30)
[2016-04-13 08:00] VITALS: BP 96/66
[2016-04-13 08:18] LABS: BILIRUBIN,URINE 1+ (NEGATIVE)
[2016-04-13] MEDS: metroNIDAZOLE 500MG/100ML IVPB 100 ML IV SCH ×2 (08:29→20:30)
[2016-04-13] MEDS ORDERED: DOXY100C2 PO ×2 (08:45)
[2016-04-13] MEDS ORDERED: ONDA8TAB12 PO ×2 (08:45)
[2016-04-13] MEDS ORDERED: LOPE2CAP PO ×2 (08:45)
[2016-04-13] MEDS ORDERED: TR1C15 TOP (08:45)
[2016-04-13] MEDS ORDERED: DIAZ10TA3 PO ×2 (08:45)
[2016-04-13] MEDS ORDERED: FENT1PAT10 TD ×2 (08:45)
[2016-04-13] MEDS ORDERED: POTA10TA10 PO ×2 (08:45)
[2016-04-13] MEDS ORDERED: CATHETER FLUSH 10 ML SYR IV PRN (09:15)
[2016-04-13] MEDS: LEVOFLOXACIN 500 MG/100 ML IV 100 ML IV SCH (09:42)
[2016-04-13] MEDS: SENNA W/DOCUSATE (SENOKOT S) TABLET PO SCH (09:42)
[2016-04-13 12:00] VITALS: BP 102/59
[2016-04-13] MEDS ORDERED: CHLORASEPTIC SPRAY 177 ML LIQUID MC PRN (13:15)
[2016-04-13] MEDS ORDERED: LORazepam INJ 2 MG/ML (ATIVAN) VIAL IVP PRN (13:30)
[2016-04-13] MEDS ORDERED: PARoxetine 20 MG (PAXIL) TAB PO NR (14:00)
[2016-04-13] MEDS: HYDROcodone/APAP 7.5 MG/325 MG (LORTAB, LORCET PLUS) TABLET PO PRN ×2 (14:06→18:19)
--- NOTE | 2016-04-13 15:00 | Oncology Progress Note ---
Subjective Subjective/Events-last exam feeling better. Pain in good control with FORENSIC SCIENCE TECHNICIAN No more diarrhea. Data Review Labs Laboratory Tests 04/13/16 05:15 Laboratory Tests 04/12/16 13:45: Activated Partial Thromboplast Time 46H, Albumin 3.0L, Calcium Level 8.4L, Creatinine 0.58L, Glucose Level 112H, Hematocrit 33L, Hemoglobin 10.9L, Magnesium Level 1.3L, Mean Platelet Volume 11.3H, Monocytes (%) (Auto) 22H, Neutrophils # (Auto) 1.3L, Neutrophils (%) (Auto) 41L, Potassium Level 3.2L, Prothrombin Time 17.3H, Red Blood Count 3.83L, Red Cell Distribution Width 15.6H , Sodium Level 133L, Total Protein 5.6L, White Blood Count 3.1L 04/12/16 14:10: Urine Bacteria FEWH, Urine Bilirubin 1+H, Urine Color AMBERH, Urine Glucose (UA ) 1+H, Urine Ketones 4+H, Urine Leukocyte Esterase 1+H, Urine Mucus MODERATEH, Urine Protein 2+H, Urine RBC 10-25H, Urine RBC (Auto) 4+H, Urine Urobilinogen 4H 04/12/16 21:10: Urine Ketones 4+H, Urine Protein 1+H, Urine RBC 5-10H, Urine RBC (Auto) 3+H 04/13/16 05:15: Albumin 2.7L, Calcium Level 8.1L, Hematocrit 31L, Hemoglobin 10.3L, Mean Platelet Volume 11.2H, Monocytes (%) (Auto) 15H, Neutrophils # (Auto) 1.6L, Neutrophils (%) (Auto) 30L, Potassium Level 3.1L, Red Blood Count 3.60L, Red Cell Distribution Width 15.9H, Sodium Level 134L, Total Protein 5.0L, Lymphocytes (%) (Auto) 52H Physical Exam Vital Signs Vital Sign - Last 12Hours 04/12/16 13:12 Temp 98.1 Pulse 86 Resp 18 B/P 105/65 Pulse Ox 99 O2 Delivery Room Air Capillary Refill : Less Than 3 Seconds General Appearance: No Apparent Distress HEENT: PERRL/EOMI Neck: Non Tender Supple Respiratory: Chest Non Tender Lungs Clear No Accessory Muscle Use No Respiratory Distress Cardiovascular: Regular Rate, Rhythm No Edema No JVD Gastrointestinal: Soft Abnormal Bowel Sounds Distended Tenderness Extremity: Non Tender No Calf Tenderness No Pedal Edema Neurologic/Psychiatric: Alert Oriented x3 Impression & Plan Impression & Plan 1. Metastatic Colon Cancer with multiple serosal metastases is seen on PET/CT with pathologic confirmation of small bowel metastasis obtained at exploratory laparotomy done July 13, 2015 on Vectibix plus FOLFIRI. Cycle 5 was given 2 weeks ago. 2. Small bowel obstruction and uncontrolled pain. 3. n/v/d dehydration 4. hypokalemia 5. fever, colitis? 6. History of depression 7 Hypothyroidism 8. History of chronic back pain due to discogenic disease. 9. Remote history of substance abuse and excessive alcohol use Plan: 1. Continue NG tube and low suction. 2. FORENSIC SCIENCE TECHNICIAN fentanyl for pain control. 3. Empirical IV antibiotics for fever and possible colitis. Levaquin and Flagyl for 5 days 4. IV clinimax for nutrition and hydration 5. Appreciated Dr. Monaco surgical consult 6. SCD for DVT prophylaxis. 7. Daily labs and replace K+ Clinical Quality Measures DVT/VTE Risk/Contraindication: Risk Factor Score Per Nursin RFS Level Per Nursing on Admit: 4+=Very High TREVOR HOWARD MD Apr 13, 2016 15:00
[2016-04-13] MEDS: POTASSIUM CL 10MEQ/50ML IVPB 50 ML IV SCH ×4 (15:37→18:53)
[2016-04-13 16:09] VITALS: BP 99/53
[2016-04-13] MEDS: ONDANSETRON 4 MG/2 ML (SDV) Z0FRAN IV PRN ×2 (16:42→22:07)
[2016-04-13 20:00] VITALS: BP 103/55
[2016-04-13] MEDS ORDERED: MAGNESIUM 1 GM/100 ML IVPB 200 ML IV ONE (20:05)
[2016-04-13] MEDS: fentaNYL PCA 300 MCG/30 ML VIAL IV PRN (20:33)
[2016-04-13] MEDS: MAGNESIUM 1 GM/100 ML IVPB 100 ML IV SCH ×2 (22:08→23:53)
[2016-04-14] VITALS: BP 98/57
[2016-04-14] MEDS: MAGNESIUM 1 GM/100 ML IVPB 100 ML IV SCH (01:57)
[2016-04-14 04:00] VITALS: BP 99/64
[2016-04-14 06:12] LABS: ANION GAP 7 MMOL/L (5-14); BLOOD UREA NITROGEN 10 MG/DL (7-18); BUN/CREATININE RATIO 19; CALCIUM 7.7 MG/DL (8.5-10.1); CARBON DIOXIDE 26 MMOL/L (21-32); CHLORIDE 102 MMOL/L (98-107); CREATININE SERUM 0.54 MG/DL (0.60-1.30); GFR ESTIMATED > 60; GLUCOSE 122 MG/DL (70-105); MAGNESIUM 2.5 MG/DL (1.8-2.4); POTASSIUM 3.1 MMOL/L (3.6-5.0); SODIUM 135 MMOL/L (135-145)
--- NOTE | 2016-04-14 07:04 | CONSULTATION REPORT ---
DATE OF CONSULTATION: 04/13/2016 REFERRING PHYSICIAN: ATTENDING PRIMARY CARE PHYSICIAN: Dr. Katz in [place]. ADMITTING PHYSICIAN: Dr. Butcher Ms. Maryellen Stuart is a 56-year-old female who was found to have a sigmoid colonic carcinoma in 2011 and underwent an open colon resection, as well as anastomosis. She reports that she was doing well and did receive chemotherapy after the surgery. The initial surgery did find 19 lymph nodes which were negative for malignancy and she was a T3 N0 M0. She underwent chemotherapy with FOLFOX; however discontinued oxaliplatin secondary to prolonged myelosuppression. She was then doing well; however, did have crampy abdominal pain and underwent further evaluation and was found to have recurrent tumor by exploratory laparotomy on 07/13/2015 and was found to have multiple small bowel serosal metastases which was also confirmed on PET CT scan. She then underwent Vectibix plus FOLFIRI which was started 01/19/2016 and is ongoing. She developed crampy abdominal pain, as well as abdominal distention and nausea and nausea and vomiting. A CT scan was performed, which did show dilated loops of small bowel, as well as a possible transition zone closer to the terminal ileum consistent with a small bowel obstruction. There is a significant amount of stool in the right, as well as transverse colon identified and she is having a colostomy output at this time. Since having an NG tube placed, she has felt better. PAST MEDICAL HISTORY: 1. Metastatic colon cancer. 2. Gastroesophageal reflux disease. 3. Hypothyroid. 4. Depression. 5. History of chronic hepatitis C. PAST SURGERIES: 1. Laparoscopic cholecystectomy. 2. Hysterectomy and left salpingo-oophorectomy. 3. Ventral abdominal incisional hernia repair. 4. Open rectosigmoid low anterior resection 2011. 5. Exploratory laparotomy and end colostomy 08/2015. 6. Tonsillectomy. ALLERGIES: No known drug allergies. MEDICATIONS: 1. Diazepam 10 mg q.i.d. p.r.n. 2. fentanyl patch 100 mcg q. 72 hours. 3. Hydrocodone p.r.n. 4. Levothyroxine 75 mcg daily. 5. Omeprazole 20 mg daily. 6. Paroxetine 20 mg daily. 7. Zolpidem 10 mg at bedtime. 8. Baclofen 10 mg t.i.d. p.r.n. SOCIAL HISTORY: Previous smoke 40 pack-years, quit in 2011, previous alcohol quit in 2012, previous history of IV drug use. FAMILY HISTORY: Father, myocardial infarction. Mother, breast cancer. VITAL SIGNS: Temperature 98.6, blood pressure 96/66, pulse 89, respirations 16 pulse ox 92% on room air. REVIEW OF SYSTEMS: This is a well-nourished female currently in no acute distress. She is not experiencing any shortness of breath or difficulty breathing. No chest pain, palpitations, diaphoresis. Nausea and vomiting starting yesterday with abdominal distention. She has an end colostomy with semisolid stools within the colostomy bag. No fever or chills. No recent inadvertent weight loss. PHYSICAL EXAMINATION: CHEST: A few scattered rales bilaterally. HEART: Regular. EXTREMITIES: No lower extremity edema. Negative Homans sign. HEENT: No scleral icterus. No cervical lymphadenopathy. ABDOMEN: Soft, nondistended. There is a small open portion of the midline incision most likely due to her colostomy appliance. There is a mild amount of surrounding redness consistent with a superficial cellulitis. No peritoneal signs. ASSESSMENT AND PLAN: This is a 56-year-old female with a history of metastatic colon cancer. She has a small bowel obstruction which appears to be in the terminal ileum. At this time, any procedure would be palliative. Our recommendations at this time is to continue with conservative management for now with NG tube decompression as well as bowel rest and IV crystalloid hydration to correct her volume contraction, as well as a Clinimix for protein and support metabolic function. Hopefully with conservative management she will have increased bowel function through the end colostomy, as well as decreased abdominal symptoms. If she continues to have symptoms or worsening symptoms, she may need further surgery encompassing an exploratory laparotomy, lysis of adhesions or tumor debulking versus a small or large bowel resection and possible end ileostomy. For now we will continue with conservative management. For the open wound, she is currently on IV antibiotics; however, we will recommend preventing the ostomy applicator to be on the area of the wound as well as sterile gauze on a b.i.d. basis to allow the area to close by secondary intention. Job ID: [id number] Dictated Date: 04/13/2016 14:04:48 Strickler Attendant Date: 04/14/2016 06:50:08/mercedes
[2016-04-14 08:00] VITALS: BP 96/64
[2016-04-14] MEDS: PANTOPRAZOLE 40 MG/10 ML (PROTONIX) VIAL IV SCH (09:07)
[2016-04-14] MEDS: metroNIDAZOLE 500MG/100ML IVPB 100 ML IV SCH ×2 (09:08→20:46)
[2016-04-14] MEDS: SENNA W/DOCUSATE (SENOKOT S) TABLET PO SCH (09:09)
[2016-04-14] MEDS: PARoxetine 20 MG (PAXIL) TAB PO SCH (09:09)
[2016-04-14] MEDS: LEVOFLOXACIN 500 MG/100 ML IV 100 ML IV SCH (10:38)
[2016-04-14 12:00] VITALS: BP 95/64
[2016-04-14] MEDS: AA 4.25% W/LYTES IN D5W IV SOL 1,000 ML IV SCH ×2 (12:37→18:00)
--- NOTE | 2016-04-14 13:02 | Diagnostic Imaging Report ---
EXAMINATION: Upright and supine views of the abdomen. INDICATION: Followup bowel obstruction. COMPARISON: 04/12/2016 radiograph. FINDINGS: There are mildly dilated small bowel loops with air-fluid levels seen, similar to the prior exam. There is gas and small amounts of fecal material seen in the colon. There is no pneumoperitoneum. Surgical clips in the upper right abdomen and in the lower abdomen and pelvis along with surgical sutures are seen. IMPRESSION: Mildly dilated multiple small bowel loops with air-fluid levels suggestive of distal partial small bowel obstruction. Dictated by: Dictated on workstation # [id number]
--- NOTE | 2016-04-14 13:58 | Progress Note (SOAP) ---
Subjective Subjective/Events-last exam Patient seen with Dr. Monaco. Patient reports that her abdominal pain has improved and is mainly on the right side. Still complains of nausea but no vomiting. No fever/chills. No colostomy function. NG in place. Review of Systems General: No Chills, No Night Sweats Gastrointestinal: : Abdominal Pain: NauseaNo: Vomiting Objective Exam Vital Signs Date Time Temp Pulse Resp B/P Pulse Ox O2 Delivery O2 Flow Rate FiO2 04/14/16 10:45 97 Room Air 04/14/16 08:25 100 Room Air 04/14/16 08:00 98.0 77 18 96/64 95 Room Air 04/14/16 07:20 96 Room Air 04/14/16 06:00 18 04/14/16 04:00 97.5 83 18 99/64 94 Room Air 04/14/16 04:00 97.5 83 18 99/64 94 Room Air 04/14/16 02:24 95 Room Air 04/14/16 00:00 97.3 79 17 98/57 97 Room Air 04/13/16 23:12 94 Room Air 04/13/16 20:33 18 04/13/16 20:33 16 04/13/16 20:30 100 Room Air 04/13/16 20:00 97.1 69 16 103/55 100 Room Air 04/13/16 18:43 18 04/13/16 18:32 98 Room Air 04/13/16 16:09 96.2 71 18 99/53 98 Room Air 04/13/16 14:16 95 Room Air I & O 04/14/16 07:00 Intake Total 2650 ml Output Total 1900 ml Balance 750 ml Capillary Refill : Less Than 3 Seconds General Appearance: No Apparent Distress WD/WN HEENT: PERRL/EOMI Neck: Supple Respiratory: No Accessory Muscle Use No Respiratory Distress Cardiovascular: Regular Rate, Rhythm Gastrointestinal: soft tenderness (RLQ, RUQ, Epigastric tenderness.) Extremity: Normal Capillary Refill Normal Inspection Normal Range of Motion Neurologic/Psychiatric: Alert Oriented x3 Skin: Normal Color Warm/Dry Other (Superficial wound near umbilicus from colostomy appliance. Gauze over site at this time. no drainage.) Results Lab Laboratory Tests 04/14/16 05:34: Anion Gap 7, BUN/Creatinine Ratio 19, Blood Urea Nitrogen 10, Calcium Level 7.7L , Carbon Dioxide Level 26, Chloride Level 102, Creatinine 0.54L, Estimat Glomerular Filtration Rate > 60, Glucose Level 122H, Magnesium Level 2.5H, Potassium Level 3.1L, Sodium Level 135 Microbiology 04/12/16 Urine Culture - Preliminary, Resulted Yeast Species Assessment/Plan Assessment/Plan Assess & Plan/Chief Complaint This is a 56-year-old female with a history of metastatic colon cancer. Small bowel obstruction any procedure would be palliative at this time continue with conservative management NG tube decompression bowel rest and will await bowel function IV fluids and IV abx Pain and Nausea medication Clinimix for protein and support metabolic function. Continue IV abx as well as dressing change with sterile gauze b.i.d to allow open wound to close by secondary intention. Diagnosis/Problems: Clinical Quality Measures DVT/VTE Risk/Contraindication: Risk Factor Score Per Nursin RFS Level Per Nursing on Admit: 4+=Very High KIARRA BARAJAS CERAMIC SPRAYER Apr 14, 2016 13:58
[2016-04-14] MEDS: ONDANSETRON 4 MG/2 ML (SDV) Z0FRAN IV PRN (14:26)
[2016-04-14] MEDS: fentaNYL PCA 300 MCG/30 ML VIAL IV PRN (14:28)
[2016-04-14 15:40] VITALS: BP 110/58
--- NOTE | 2016-04-14 16:50 | Oncology Progress Note ---
Subjective Subjective/Events-last exam feeling better. able to get out of the bed today. pain in good control no more diarrhea Data Review Labs Laboratory Tests 04/14/16 05:34 Laboratory Tests 04/12/16 13:45: Activated Partial Thromboplast Time 46H, Albumin 3.0L, Calcium Level 8.4L, Creatinine 0.58L, Glucose Level 112H, Hematocrit 33L, Hemoglobin 10.9L, Magnesium Level 1.3L, Mean Platelet Volume 11.3H, Monocytes (%) (Auto) 22H, Neutrophils # (Auto) 1.3L, Neutrophils (%) (Auto) 41L, Potassium Level 3.2L, Prothrombin Time 17.3H, Red Blood Count 3.83L, Red Cell Distribution Width 15.6H , Sodium Level 133L, Total Protein 5.6L, White Blood Count 3.1L 04/12/16 14:10: Urine Bacteria FEWH, Urine Bilirubin 1+H, Urine Color AMBERH, Urine Glucose (UA ) 1+H, Urine Ketones 4+H, Urine Leukocyte Esterase 1+H, Urine Mucus MODERATEH, Urine Protein 2+H, Urine RBC 10-25H, Urine RBC (Auto) 4+H, Urine Urobilinogen 4H 04/12/16 21:10: Urine Ketones 4+H, Urine Protein 1+H, Urine RBC 5-10H, Urine RBC (Auto) 3+H 04/13/16 05:15: Albumin 2.7L, Calcium Level 8.1L, Hematocrit 31L, Hemoglobin 10.3L, Mean Platelet Volume 11.2H, Monocytes (%) (Auto) 15H, Neutrophils # (Auto) 1.6L, Neutrophils (%) (Auto) 30L, Potassium Level 3.1L, Red Blood Count 3.60L, Red Cell Distribution Width 15.9H, Sodium Level 134L, Total Protein 5.0L, Lymphocytes (%) (Auto) 52H 04/14/16 05:34: Calcium Level 7.7L, Creatinine 0.54L, Glucose Level 122H, Magnesium Level 2.5H, Potassium Level 3.1L Physical Exam Vital Signs Vital Sign - Last 12Hours 04/12/16 13:12 Temp 98.1 Pulse 86 Resp 18 B/P 105/65 Pulse Ox 99 O2 Delivery Room Air Capillary Refill : Less Than 3 Seconds General Appearance: No Apparent Distress HEENT: PERRL/EOMI Other (NG tube) Neck: Non Tender Supple Respiratory: Chest Non Tender Lungs Clear No Accessory Muscle Use No Respiratory Distress Cardiovascular: Regular Rate, Rhythm No JVD Gastrointestinal: Soft Distended Tenderness Neurologic/Psychiatric: Alert Oriented x3 Impression & Plan Impression & Plan 1. Metastatic Colon Cancer with multiple serosal metastases is seen on PET/CT with pathologic confirmation of small bowel metastasis obtained at exploratory laparotomy done July 13, 2015 on Vectibix plus FOLFIRI. Cycle 5 was given 2 weeks ago. 2. Small bowel obstruction and uncontrolled pain. 3. n/v/d dehydration 4. hypokalemia 5. fever, colitis? 6. History of depression 7 Hypothyroidism 8. History of chronic back pain due to discogenic disease. 9. Remote history of substance abuse and excessive alcohol use Plan: 1. Continue NG tube and low suction, possible NG out tomorrow. 2. ENGINEHOUSE BRAKEMAN fentanyl for pain control. 3. Empirical IV antibiotics for fever and possible colitis. Levaquin and Flagyl for 5 days 4. IV clinimax for nutrition and hydration 5. Appreciated Dr. Monaco surgical consult 6. SCD for DVT prophylaxis. 7. Daily labs and replace K+ 60meq today Clinical Quality Measures DVT/VTE Risk/Contraindication: Risk Factor Score Per Nursin RFS Level Per Nursing on Admit: 4+=Very High TREVOR HOWARD MD Apr 14, 2016 16:50
[2016-04-14] MEDS: FLUCONAZOLE 200 MG/100 ML 100 ML IV SCH (17:16)
[2016-04-14] MEDS: POTASSIUM CL 10MEQ/50ML IVPB 50 ML IV SCH ×5 (18:11→23:11)
[2016-04-14 20:02] VITALS: BP 99/64
[2016-04-15] VITALS (7 sets, daily range): BP systolic 83–122; BP diastolic 51–67
[2016-04-15] MEDS: POTASSIUM CL 10MEQ/50ML IVPB 50 ML IV SCH (00:12)
[2016-04-15] MEDS: AA 4.25% W/LYTES IN D5W IV SOL 1,000 ML IV SCH ×4 (02:00→20:04)
[2016-04-15 07:10] LABS: BASOPHILS % (AUTO) 1 % (0-10); EOSINOPHILS # (AUTO) 0.1 10^3/uL (0.0-0.3); EOSINOPHILS % (AUTO) 2 % (0-10); LYMPHOCYTES # (AUTO) 1.6 X 10^3 (1.0-4.0); LYMPHOCYTES % (AUTO) 43 % (12-44); MEAN CORPUSCULAR HEMOGLOBIN 29 PG (25-34); MEAN CORPUSCULAR HGB CONC 32 G/DL (32-36); MEAN CORPUSCULAR VOLUME 89 FL (80-99); MEAN PLATELET VOLUME 10.8 FL (7.4-10.4); MONOCYTES # (AUTO) 0.6 X 10^3 (0.0-1.0); MONOCYTES % (AUTO) 17 % (0-12); NEUTROPHILS # (AUTO) 1.4 X 10^3 (1.8-7.8); NEUTROPHILS % (AUTO) 37 % (42-75); PLATELET COUNT 196 10^3/uL (130-400); RED BLOOD COUNT 3.22 10^6/uL (4.35-5.85); RED CELL DISTRIBUTION WIDTH 16.6 % (10.0-14.5); WHITE BLOOD COUNT 3.7 10^3/uL (4.3-11.0)
--- NOTE | 2016-04-15 07:17 | Diagnostic Imaging Report ---
Upright and supine views of the abdomen. INDICATION: Partial small bowel obstruction. FINDINGS: There is stable dilated small bowel loops with air-fluid levels seen. There is air noted distally in the colon and rectum. The findings are compatible with partial small bowel obstruction without significant change from 04/14/16. There is surgical clips in the upper abdomen and inferiorly in the pelvis. IMPRESSION: Partial small bowel obstruction findings Dictated by: Dictated on workstation # [id number]
[2016-04-15] MEDS: fentaNYL PCA 300 MCG/30 ML VIAL IV PRN (07:19)
[2016-04-15 07:26] LABS: ANION GAP 5 MMOL/L (5-14); BLOOD UREA NITROGEN 12 MG/DL (7-18); BUN/CREATININE RATIO 22; CALCIUM 7.7 MG/DL (8.5-10.1); CARBON DIOXIDE 22 MMOL/L (21-32); CHLORIDE 110 MMOL/L (98-107); CREATININE SERUM 0.55 MG/DL (0.60-1.30); GFR ESTIMATED > 60; GLUCOSE 105 MG/DL (70-105); POTASSIUM 4.4 MMOL/L (3.6-5.0); SODIUM 137 MMOL/L (135-145)
[2016-04-15] MEDS: LEVOFLOXACIN 500 MG/100 ML IV 100 ML IV SCH (08:27)
[2016-04-15] MEDS: PANTOPRAZOLE 40 MG/10 ML (PROTONIX) VIAL IV SCH (08:28)
[2016-04-15] MEDS: PARoxetine 20 MG (PAXIL) TAB PO SCH (08:31)
[2016-04-15] MEDS: SENNA W/DOCUSATE (SENOKOT S) TABLET PO SCH (08:32)
[2016-04-15] MEDS: FLUCONAZOLE 200 MG/100 ML 100 ML IV SCH (09:34)
--- NOTE | 2016-04-15 10:19 | Progress Note (SOAP) ---
Subjective Subjective/Events-last exam doing slightly better today. still has crampy abd pain but chronic. no fever/ chills. no peritoneal signs. end colostomy functional. Objective Exam Vital Signs Date Time Temp Pulse Resp B/P Pulse Ox O2 Delivery O2 Flow Rate FiO2 04/15/16 08:00 97.3 70 18 97/67 97 Room Air 04/15/16 07:19 16 04/15/16 06:55 93 Room Air 04/15/16 06:00 16 04/15/16 05:57 99/57 04/15/16 04:00 96.8 70 18 83/51 97 Room Air 04/15/16 02:42 97 Room Air 04/15/16 00:00 98.0 70 18 94/58 100 Room Air 04/14/16 22:31 97 Room Air 04/14/16 20:02 97.0 69 16 99/64 100 Room Air 04/14/16 18:00 16 04/14/16 15:40 97.9 73 16 110/58 96 Room Air 04/14/16 14:28 16 04/14/16 14:22 97 Room Air 04/14/16 12:00 96.4 78 16 95/64 97 Room Air 04/14/16 10:45 97 Room Air I & O 04/15/16 06:59 Intake Total 1700 ml Output Total 2800 ml Balance -1100 ml Capillary Refill : Less Than 3 Seconds General Appearance: No Apparent Distress HEENT: PERRL/EOMI Neck: Full Range of Motion Respiratory: Chest Non Tender Normal Breath Sounds Cardiovascular: Regular Rate, Rhythm Gastrointestinal: normal bowel sounds soft Extremity: Normal Capillary Refill Neurologic/Psychiatric: Alert Oriented x3 Skin: Normal Color Lymphatic: No Adenopathy Results Lab Laboratory Tests 04/15/16 07:03: Anion Gap 5, BUN/Creatinine Ratio 22, Basophils # (Auto) 0.0, Basophils (%) ( Auto) 1, Blood Urea Nitrogen 12, Calcium Level 7.7L, Carbon Dioxide Level 22, Chloride Level 110H, Creatinine 0.55L, Eosinophils # (Auto) 0.1, Eosinophils (% ) (Auto) 2, Estimat Glomerular Filtration Rate > 60, Glucose Level 105, Hematocrit 29L, Hemoglobin 9.2L, Lymphocytes # (Auto) 1.6, Lymphocytes (%) (Auto ) 43, Mean Corpuscular Hemoglobin 29, Mean Corpuscular Hemoglobin Concent 32, Mean Corpuscular Volume 89, Mean Platelet Volume 10.8H, Monocytes # (Auto) 0.6, Monocytes (%) (Auto) 17H, Neutrophils # (Auto) 1.4L, Neutrophils (%) (Auto) 37L , Platelet Count 196, Potassium Level 4.4, Red Blood Count 3.22L, Red Cell Distribution Width 16.6H, Sodium Level 137, White Blood Count 3.7L Microbiology 04/14/16 C. difficile GDH Antigen & Toxins - Final, Complete 04/12/16 Urine Culture - Final, Complete Yeast Species Assessment/Plan Assessment/Plan Assess & Plan/Chief Complaint metastatic colon cancer with PSBO. has more bowel function now and decreased abd distention/pain. will continue with conservative management. continue ambulation. d/c NGT and sips of clears. Diagnosis/Problems: Clinical Quality Measures DVT/VTE Risk/Contraindication: Risk Factor Score Per Nursin RFS Level Per Nursing on Admit: 4+=Very High RAS SHELBY MD Apr 15, 2016 10:19
[2016-04-15] MEDS: metroNIDAZOLE 500MG/100ML IVPB 100 ML IV SCH ×2 (10:44→20:30)
--- NOTE | 2016-04-15 14:52 | Oncology Progress Note ---
Subjective Subjective/Events-last exam NG tube out. Looked better Pain under good control Allow to have ice chips and sips of clear liquid. Data Review Labs Laboratory Tests 04/15/16 07:03 Laboratory Tests 04/12/16 21:10: Urine Ketones 4+H, Urine Protein 1+H, Urine RBC 5-10H, Urine RBC (Auto) 3+H 04/13/16 05:15: Albumin 2.7L, Calcium Level 8.1L, Hematocrit 31L, Hemoglobin 10.3L, Lymphocytes (%) (Auto) 52H, Mean Platelet Volume 11.2H, Monocytes (%) (Auto) 15H, Neutrophils # (Auto) 1.6L, Neutrophils (%) (Auto) 30L, Potassium Level 3.1L, Red Blood Count 3.60L, Red Cell Distribution Width 15.9H, Sodium Level 134L, Total Protein 5.0L 04/14/16 05:34: Calcium Level 7.7L, Potassium Level 3.1L, Creatinine 0.54L, Glucose Level 122H, Magnesium Level 2.5H 04/15/16 07:03: Calcium Level 7.7L, Hematocrit 29L, Hemoglobin 9.2L, Mean Platelet Volume 10.8H , Monocytes (%) (Auto) 17H, Neutrophils # (Auto) 1.4L, Neutrophils (%) (Auto) 37L, Red Blood Count 3.22L, Red Cell Distribution Width 16.6H, Creatinine 0.55L , Chloride Level 110H, White Blood Count 3.7L Physical Exam Vital Signs Vital Sign - Last 12Hours 04/12/16 13:12 Temp 98.1 Pulse 86 Resp 18 B/P 105/65 Pulse Ox 99 O2 Delivery Room Air Capillary Refill : Less Than 3 Seconds General Appearance: No Apparent Distress HEENT: PERRL/EOMI Neck: Non Tender Supple Respiratory: Chest Non Tender Lungs Clear No Accessory Muscle Use No Respiratory Distress Cardiovascular: Regular Rate, Rhythm No JVD Gastrointestinal: Soft Tenderness Other (less distended) Extremity: Non Tender No Calf Tenderness No Pedal Edema Neurologic/Psychiatric: Alert Oriented x3 Impression & Plan Impression & Plan 1. Metastatic Colon Cancer with multiple serosal metastases is seen on PET/CT with pathologic confirmation of small bowel metastasis obtained at exploratory laparotomy done July 13, 2015 on Vectibix plus FOLFIRI. Cycle 5 was given 2 weeks ago. 2. Small bowel obstruction and uncontrolled pain. 3. n/v/d dehydration 4. hypokalemia 5. fever, colitis? 6. History of depression 7 Hypothyroidism 8. History of chronic back pain due to discogenic disease. 9. Remote history of substance abuse and excessive alcohol use 10. Anemia. Plan: 1. NG out and close monitor. ice chips and sips of clear liquid. 2. IMPORT/EXPORT AGENT fentanyl for pain control. 3. Empirical IV antibiotics for fever and possible colitis. Levaquin and Flagyl for 5 days 4. IV clinimax for nutrition and hydration 5. Appreciated Dr. Monaco surgical consult 6. SCD for DVT prophylaxis. 7. Daily labs and replacement if needed. 8. Encourage moving around and physical therapy. Clinical Quality Measures DVT/VTE Risk/Contraindication: Risk Factor Score Per Nursin RFS Level Per Nursing on Admit: 4+=Very High TREVOR HOWARD MD Apr 15, 2016 14:52
[2016-04-16] VITALS: BP 113/59
[2016-04-16] MEDS: ONDANSETRON 4 MG/2 ML (SDV) Z0FRAN IV PRN (00:40)
[2016-04-16 04:00] VITALS: BP 98/54
[2016-04-16] MEDS: AA 4.25% W/LYTES IN D5W IV SOL 1,000 ML IV SCH ×2 (05:11→18:16)
[2016-04-16] MEDS: fentaNYL PCA 300 MCG/30 ML VIAL IV PRN (06:57)
[2016-04-16 07:20] LABS: ANION GAP 5 MMOL/L (5-14); BLOOD UREA NITROGEN 15 MG/DL (7-18); BUN/CREATININE RATIO 27; CALCIUM 8.1 MG/DL (8.5-10.1); CARBON DIOXIDE 23 MMOL/L (21-32); CHLORIDE 111 MMOL/L (98-107); CREATININE SERUM 0.56 MG/DL (0.60-1.30); GFR ESTIMATED > 60; GLUCOSE 106 MG/DL (70-105); POTASSIUM 4.7 MMOL/L (3.6-5.0); SODIUM 139 MMOL/L (135-145)
[2016-04-16 08:35] VITALS: BP 95/53
[2016-04-16] MEDS: SENNA W/DOCUSATE (SENOKOT S) TABLET PO SCH (09:24)
[2016-04-16] MEDS: LEVOFLOXACIN 500 MG/100 ML IV 100 ML IV SCH ×2 (09:24→11:00)
[2016-04-16] MEDS: PARoxetine 20 MG (PAXIL) TAB PO SCH (09:24)
[2016-04-16] MEDS: PANTOPRAZOLE 40 MG/10 ML (PROTONIX) VIAL IV SCH (09:24)
[2016-04-16] MEDS: metroNIDAZOLE 500MG/100ML IVPB 100 ML IV SCH ×2 (10:04→22:35)
[2016-04-16] MEDS: FLUCONAZOLE 200 MG/100 ML 100 ML IV SCH (10:24)
[2016-04-16 12:15] VITALS: BP 97/52
--- NOTE | 2016-04-16 15:16 | Oncology Progress Note ---
Subjective Subjective/Events-last exam Feeling better. On clear liquid sips and tolerated well so far. NG tube out 24hrs now. Pt wants to go home. Data Review Labs Laboratory Tests 04/16/16 06:49 Laboratory Tests 04/14/16 05:34: Calcium Level 7.7L, Creatinine 0.54L, Glucose Level 122H, Magnesium Level 2.5H, Potassium Level 3.1L 04/15/16 07:03: Calcium Level 7.7L, Creatinine 0.55L, Chloride Level 110H, Hematocrit 29L, Hemoglobin 9.2L, Mean Platelet Volume 10.8H, Monocytes (%) (Auto) 17H, Neutrophils # (Auto) 1.4L, Neutrophils (%) (Auto) 37L, Red Blood Count 3.22L, Red Cell Distribution Width 16.6H, White Blood Count 3.7L 04/16/16 06:49: Calcium Level 8.1L, Creatinine 0.56L, Glucose Level 106H, Chloride Level 111H Physical Exam Vital Signs Vital Sign - Last 12Hours 04/12/16 13:12 Temp 98.1 Pulse 86 Resp 18 B/P 105/65 Pulse Ox 99 O2 Delivery Room Air Capillary Refill : Less Than 3 Seconds General Appearance: No Apparent Distress HEENT: PERRL/EOMI Neck: Non Tender Supple Respiratory: Chest Non Tender Lungs Clear No Accessory Muscle Use No Respiratory Distress Cardiovascular: Regular Rate, Rhythm Gastrointestinal: Non Tender Soft Distended Extremity: Non Tender Neurologic/Psychiatric: Alert Oriented x3 Impression & Plan Impression & Plan 1. Metastatic Colon Cancer with multiple serosal metastases is seen on PET/CT with pathologic confirmation of small bowel metastasis obtained at exploratory laparotomy done July 13, 2015 on Vectibix plus FOLFIRI. Cycle 5 was given 2 weeks ago. 2. Small bowel obstruction and uncontrolled pain. 3. n/v/d dehydration 4. hypokalemia 5. fever, colitis? 6. History of depression 7 Hypothyroidism 8. History of chronic back pain due to discogenic disease. 9. Remote history of substance abuse and excessive alcohol use 10. Anemia. Plan: 1. NG out and close monitor. advance to clear liquid diet. F/u KUB report 2. Wean off [employer] fentanyl. 3. May stop Levaquin tomorrow. 4. IV clinimax for nutrition and hydration 5. Appreciated Dr. Monaco surgical consult 6. SCD for DVT prophylaxis. 7. Daily labs and replacement if needed. 8. Encourage moving around and physical therapy. 9. Possible home next Monday Clinical Quality Measures DVT/VTE Risk/Contraindication: Risk Factor Score Per Nursin RFS Level Per Nursing on Admit: 4+=Very High TREVOR HOWARD MD Apr 16, 2016 15:16
--- NOTE | 2016-04-16 16:23 | Diagnostic Imaging Report ---
EXAMINATION: Abdominal radiographs, 2 views, upright and supine. DATE: 04/16/2016. CLINICAL INDICATION: 56-year-old female, right lower quadrant pain. Small bowel obstruction. COMPARISON: 04/15/2016. COMMENTS: Right upper quadrant surgical clips likely relate to prior cholecystectomy. There are multiple surgical clips overlying the pelvis as well as sutures overlying the pelvis. There are gas-distended segments of small bowel in the right lower quadrant which measure up to 4.6 cm in diameter. The degree of small bowel distention and overall amount of small bowel gas is unchanged since comparison exam. There is no identified free intraperitoneal air, pneumatosis, or portal venous gas. IMPRESSION: 1. Redemonstrated abnormally distended gas-filled segments of small bowel in the right lower quadrant which would be compatible with provided history of distal small bowel obstruction. Dictated by: Dictated on workstation # [id number]
[2016-04-16 16:51] VITALS: BP 97/55
[2016-04-16 20:50] VITALS: BP 106/55
[2016-04-16] MEDS: ZOLPIDEM 5 MG (AMBIEN) TAB PO SCH (22:35)
[2016-04-17] VITALS: BP 97/65
[2016-04-17] MEDS: AA 4.25% W/LYTES IN D5W IV SOL 1,000 ML IV SCH ×4 (02:36→22:40)
[2016-04-17 04:00] VITALS: BP 101/67
[2016-04-17 04:12] LABS: BASOPHILS # (AUTO) 0.1 10^3/uL (0.0-0.1); BASOPHILS % (AUTO) 1 % (0-10); EOSINOPHILS # (AUTO) 0.1 10^3/uL (0.0-0.3); EOSINOPHILS % (AUTO) 2 % (0-10); LYMPHOCYTES # (AUTO) 2.2 X 10^3 (1.0-4.0); LYMPHOCYTES % (AUTO) 40 % (12-44); MEAN CORPUSCULAR HEMOGLOBIN 28 PG (25-34); MEAN CORPUSCULAR HGB CONC 31 G/DL (32-36); MEAN CORPUSCULAR VOLUME 89 FL (80-99); MEAN PLATELET VOLUME 10.6 FL (7.4-10.4); MONOCYTES # (AUTO) 0.7 X 10^3 (0.0-1.0); MONOCYTES % (AUTO) 14 % (0-12); NEUTROPHILS # (AUTO) 2.4 X 10^3 (1.8-7.8); NEUTROPHILS % (AUTO) 44 % (42-75); PLATELET COUNT 253 10^3/uL (130-400); RED BLOOD COUNT 3.89 10^6/uL (4.35-5.85); RED CELL DISTRIBUTION WIDTH 17.6 % (10.0-14.5); WHITE BLOOD COUNT 5.4 10^3/uL (4.3-11.0)
[2016-04-17 04:31] LABS: ALANINE AMINOTRANSFERASE 12 U/L (0-55); ALBUMIN 3.1 G/DL (3.2-4.5); ANION GAP 11 MMOL/L (5-14); ASPARTATE AMINO TRANSFERASE 17 U/L (5-34); BILIRUBIN,TOTAL 0.3 MG/DL (0.1-1.0); BLOOD UREA NITROGEN 16 MG/DL (7-18); BUN/CREATININE RATIO 25; CALCIUM 8.5 MG/DL (8.5-10.1); CARBON DIOXIDE 21 MMOL/L (21-32); CHLORIDE 109 MMOL/L (98-107); CREATININE SERUM 0.64 MG/DL (0.60-1.30); GFR ESTIMATED > 60; GLUCOSE 77 MG/DL (70-105); SODIUM 141 MMOL/L (135-145); TOTAL PROTEIN 5.7 G/DL (6.4-8.2)
[2016-04-17 04:59] LABS: NEUTROPHILS % (MANUAL) 31 %
[2016-04-17 05:00] LABS: BAND NEUTROPHILS 1 %; EOSINOPHILS % (MANUAL) 2 %; LYMPHOCYTES % (MANUAL) 39 %; MYELOCYTES % 12 %
[2016-04-17 08:00] VITALS: BP 89/50
[2016-04-17] MEDS: PARoxetine 20 MG (PAXIL) TAB PO SCH (09:12)
[2016-04-17] MEDS: metroNIDAZOLE 500MG/100ML IVPB 100 ML IV SCH (09:12)
[2016-04-17] MEDS: PANTOPRAZOLE 40 MG/10 ML (PROTONIX) VIAL IV SCH (09:12)
[2016-04-17] MEDS: SENNA W/DOCUSATE (SENOKOT S) TABLET PO SCH (09:12)
[2016-04-17] MEDS: LEVOFLOXACIN 500 MG/100 ML IV 100 ML IV SCH (11:24)
[2016-04-17 12:00] VITALS: BP 95/52
[2016-04-17] MEDS: FLUCONAZOLE 200 MG/100 ML 100 ML IV SCH (12:41)
--- NOTE | 2016-04-17 13:10 | Oncology Progress Note ---
Subjective Subjective/Events-last exam Pt is feeling much better. Walked in the hallway multiple times yesterday and today. Wants to eat. Off NG tube Wants to go home if possible Data Review Labs Laboratory Tests 04/17/16 03:55 Laboratory Tests 04/15/16 07:03: Calcium Level 7.7L, Chloride Level 110H, Creatinine 0.55L, Hematocrit 29L, Hemoglobin 9.2L, Mean Platelet Volume 10.8H, Monocytes (%) (Auto) 17H, Neutrophils # (Auto) 1.4L, Neutrophils (%) (Auto) 37L, Red Blood Count 3.22L, Red Cell Distribution Width 16.6H, White Blood Count 3.7L 04/16/16 06:49: Calcium Level 8.1L, Chloride Level 111H, Creatinine 0.56L, Glucose Level 106H 04/17/16 03:55: Chloride Level 109H, Hemoglobin 10.9L, Mean Platelet Volume 10.6H, Monocytes (% ) (Auto) 14H, Red Blood Count 3.89L, Red Cell Distribution Width 17.6H, Albumin 3.1L, Mean Corpuscular Hemoglobin Concent 31L, Total Protein 5.7L Physical Exam Vital Signs Vital Sign - Last 12Hours 04/12/16 13:12 Temp 98.1 Pulse 86 Resp 18 B/P 105/65 Pulse Ox 99 O2 Delivery Room Air Capillary Refill : Less Than 3 Seconds General Appearance: No Apparent Distress HEENT: PERRL/EOMI Neck: Non Tender Supple Respiratory: Chest Non Tender Lungs Clear Cardiovascular: Regular Rate, Rhythm No JVD Gastrointestinal: Non Tender Soft Distended Neurologic/Psychiatric: Alert Oriented x3 Impression & Plan Impression & Plan 1. Metastatic Colon Cancer with multiple serosal metastases is seen on PET/CT with pathologic confirmation of small bowel metastasis obtained at exploratory laparotomy done July 13, 2015 on Vectibix plus FOLFIRI. Cycle 5 was given 2 weeks ago. 2. Small bowel obstruction and uncontrolled pain. 3. n/v/d dehydration 4. hypokalemia 5. fever, colitis? 6. History of depression 7 Hypothyroidism 8. History of chronic back pain due to discogenic disease. 9. Remote history of substance abuse and excessive alcohol use 10. Anemia. Plan: 1. Advance diet from clear liquid to soft food. Avoid lactose for now. Even though the KUB report is no change but clinically she is clearly improved. 2. Off [employer]N [employer] fentanyl. 3. Stop Flagyl today and may stop Levaquin tomorrow. 4. IV clinimax for nutrition and hydration 5. Appreciated Dr. Monaco surgical consult 6. SCD for DVT prophylaxis. 7. Daily labs and replacement if needed. 8. Encourage moving around and physical therapy. 9. Possible home next Monday or Mon Clinical Quality Measures DVT/VTE Risk/Contraindication: Risk Factor Score Per Nursin RFS Level Per Nursing on Admit: 4+=Very High TREVOR HOWARD MD Apr 17, 2016 13:10
[2016-04-17 16:23] VITALS: BP 110/73
[2016-04-17] MEDS: HYDROcodone/APAP 7.5 MG/325 MG (LORTAB, LORCET PLUS) TABLET PO PRN ×2 (18:31→22:40)
[2016-04-17 20:00] VITALS: BP 126/77
[2016-04-17] MEDS: ZOLPIDEM 5 MG (AMBIEN) TAB PO SCH (22:40)
[2016-04-18 00:10] VITALS: BP 122/70
[2016-04-18 03:27] VITALS: BP 104/70
[2016-04-18] MEDS: HYDROcodone/APAP 7.5 MG/325 MG (LORTAB, LORCET PLUS) TABLET PO PRN (06:07)
[2016-04-18] MEDS: AA 4.25% W/LYTES IN D5W IV SOL 1,000 ML IV SCH (06:57)
[2016-04-18 08:22] VITALS: BP 110/74
[2016-04-18] MEDS: PANTOPRAZOLE 40 MG/10 ML (PROTONIX) VIAL IV SCH (09:22)
[2016-04-18] MEDS: PARoxetine 20 MG (PAXIL) TAB PO SCH (09:22)
[2016-04-18] MEDS: SENNA W/DOCUSATE (SENOKOT S) TABLET PO SCH (09:22)
[2016-04-18 12:09] VITALS: BP 108/72
[2016-04-18] MEDS: FLUCONAZOLE 200 MG/100 ML 100 ML IV SCH (12:39)
--- NOTE | 2016-04-18 15:14 | Oncology Discharge Summary ---
Diagnosis/Chief Complaint Date of Admission Apr 12, 2016 at 15:22 Date of Discharge Discharge Diagnosis 1. Metastatic Colon Cancer with multiple serosal metastases is seen on PET/CT with pathologic confirmation of small bowel metastasis obtained at exploratory laparotomy 2. Small bowel obstruction and uncontrolled pain. 3. n/v/d dehydration 4. hypokalemia 5. fever, colitis. 6. History of depression 7 Hypothyroidism 8. History of chronic back pain due to discogenic disease. 9. Remote history of substance abuse and excessive alcohol use 10. Anemia. Reason Hospital Visit Ms. Stuart is a 56 year old white female who was admitted on 04/12/16 with small bowel obstruction. She has Metastatic Colon Cancer with multiple serosal metastases on PET/CT with pathologic confirmation of small bowel metastasis obtained at exploratory laparotomy July 13, 2015. Pt was treated with bowel decompression and NG tube, CLINICAL SERVICES ASSISTANT fentanyl pain control and antibiotics Rocephin and Flagyl as well as Clinimax. She slowly improved with the treatment. She was off NG tube on 3rd day of hospital stay. She was slowly advanced diet from clear liquid then soft diet. She is able to keep down the food without any problems. She is off CLINICAL SERVICES ASSISTANT. She felt well enough and wanted to go home 04/18/16. Discharge condition: much improved and able to eat soft diet without problems F/u with Dr Lopez at the cancer center as scheduled. No new meds needed. Pt will continue her home meds. Discharge Summary Discharge Instructions to patient/family Please see electonic discharge instructions given to patient. Discharge Medications Reviewed and agree with Discharge Medication list on patient's Discharge Instruction sheet Clinical Quality Measures DVT/VTE Risk/Contraindication: Risk Factor Score Per Nursin RFS Level Per Nursing on Admit: 4+=Very High TREVOR HOWARD MD Apr 18, 2016 15:14
[2016-04-18 15:44] VITALS: BP 108/72
== END 2016-04-18 16:00 | disposition home or self-care (01) | DRG 327 ==
LOC: EDUNIT# 12:05 → ER 12:07 → 4TH 15:22
PROVIDERS: ADMIT Internal Medicine Hematology & Oncology; ATTEND Internal Medicine Hematology & Oncology
PROC: 0D9470Z Drainage of Esophagogastric Junction with Drainage Device, Via Natural or Artificial Opening (ICD-10-PCS; principal; 2016-04-12)
DX: K56.69 Other intestinal obstruction (principal); C78.4 Secondary malignant neoplasm of small intestine; E86.0 Dehydration; J44.9 Chronic obstructive pulmonary disease, unspecified; J45.909 Unspecified asthma, uncomplicated; K21.9 Gastro-esophageal reflux disease without esophagitis; E03.9 Hypothyroidism, unspecified; E87.6 Hypokalemia; D64.9 Anemia, unspecified; F41.9 Anxiety disorder, unspecified; F32.9 Major depressive disorder, single episode, unspecified; K52.9 Noninfective gastroenteritis and colitis, unspecified; Z93.3 Colostomy status; Z85.038 Personal history of other malignant neoplasm of large intestine; Z87.891 Personal history of nicotine dependence; Z86.19 Personal history of other infectious and parasitic diseases
CPT/HCPCS: 36415; 71010; 71250; 74000; 74020; 74176; 80048; 80053; 81000; 83690; 83735; 85007; 85025; 85027; 85610; 85730; 87088; 87324; 87449; 94760; 96361; 96374; 96375; 96376

== ENCOUNTER 2016-04-19 14:33 | Inpatient (IN) | payer MEDICARE, MEDICAID ==
[~2016-04-19] VITALS: Ht 160 cm; Wt 62.6 kg
[~2016-04-19 14:33] MED LIST changes: +DOXY100C2 PO; +FENT1PAT10 TD; +LOPE2CAP PO; +ONDA8TAB12 PO; +POTA10TA10 PO; +TR1C15 TOP
--- OUTSIDE RECORDS SUMMARY | 2016-04-19 14:38 | XMS REPORT | Continuity of Care Document ---
Author Author [facility] Organization [facility] Address Unknown Phone Unavailable Care Team Providers Care Greenhouse Grower Name Role Phone [email or web address] PCP [phone] Source Comments Some departments are not documenting in the electronic medical record. If you do not see the information that you expected, contact Release of Information in the Health Information Management department at [phone] for further assistance in locating additional records.[facility] Active Allergies and Adverse Reactions [...] at 60% doses 09/25/2015 first visit at [facility], discussed use of Lomotil for diarrhea and [...]
[2016-04-19] MEDS ORDERED: HYDROmorphone (DILAUDID) 2 MG/ML VIAL IVP STA ×3 (15:04→15:57)
[2016-04-19] MEDS ORDERED: NS IV 1000 ML 1,000 ML IV STA (15:04)
[2016-04-19] MEDS ORDERED: ONDANSETRON 4 MG/2 ML (SDV) Z0FRAN IVP ONE ×2 (15:15→17:15)
--- NOTE | 2016-04-19 15:23 | ED Abdominal Pain ---
General Chief Complaint: Abdominal/GI Problems Stated Complaint: ABD PAIN, HX OF BOWEL BLOCKAGE Nursing Triage Note: PT'S SISTER STATES PT WAS DISCHARGED HERE FROM [facility] YESTERDAY, HX OF STAGE 4 COLON CA, PT ATE LAST NIGHT BUT THREW UP TODAY, BOWEL IS TWISTED THEY BELIEVE IN THE SMALL COLON AND THE DR'S WERE HOPING THE BOWEL WILL UNTWIST ON IT'S OWN. Sepsis Screen: No Definite Risk Source of Information: Patient Exam Limitations: No Limitations History of Present Illness Time Seen By Provider: 15:01 Initial Comments Here with report of lower abdominal pain that has worsened since yesterday. She is discharged from the hospital yesterday with history of stage IV colon cancer. She's had some intermittent blockage. She went home last night and tried to eat but has been vomiting since. She has colostomy to the left lower abdomen and the bag is flat without new BM or gas. She states that she has not emptied it since early this morning or yesterday and has no new stool or gas. She is concerned about bowel obstruction. She is unable to keep anything down. States pain is quite severe and not helped with her fentanyl patch or oral medicines. She has been unable to keep her oral medicines down. Timing/Duration: 12-24 Hours Severity/Quality: Moderate, Severe, Aching, Cramping Location: Suprapubic Radiation: RUQ, LUQ, RLQ, LLQ, Back (right-sided) Activities at Onset: None Modifying Factors: Worsens With Eating, Worsens With Movement Associated Symptoms: Back PainNo Chest Pain, No Fever/Chills, Nausea/ Vomiting Weakness Allergies and Home Medications Allergies Coded Allergies: oxaliplatin (Verified Allergy, Severe, 01/07/16) Home Medications Baclofen 10 Mg Tablet 5-10 MG PO TID PRN PRN MUSCLE SPASMS (Reported) Diazepam 10 Mg Tablet 10 MG PO HS (Reported) Doxycycline Hyclate 100 Mg Capsule 100 MG PO DAILY (Reported) Hydrocodone/Acetaminophen 1 Each Tablet 1 TAB PO Q4H PRN PRN PAIN (Reported) Levothyroxine Sodium 75 Mcg Tablet 75 MCG PO DAILY (Reported) Loperamide HCl 2 Mg Capsule 2 MG PO UD PRN PRN LOOSE STOOLS (Reported) Ondansetron HCl 8 Mg Tablet 8 MG PO Q8H PRN PRN NAUSEA (Reported) Paroxetine HCl 20 Mg Tablet 20 MG PO DAILY (Reported) Potassium Chloride 10 Meq Tablet.er 10 MEQ PO TID (Reported) Zolpidem Tartrate 10 Mg Tablet 15 MG PO HS (Reported) TAKES 1 & 1/2 (10MG) TABLETS Review of Systems Constitutional: see HPINo chills, No fever EENTM: No Symptoms Reported Respiratory: No Symptoms Reported Cardiovascular: No Symptoms Reported Gastrointestinal: See HPI Abdomen Distended Abdominal Pain Nausea Poor Appetite Vomiting Genitourinary: Hematuria Pain Musculoskeletal: no symptoms reported Skin: no symptoms reported Psychiatric/Neurological: No Symptoms Reported Endocrine: No Symptoms Reported All Other Systems Reviewed Negative Unless Noted: Yes Past Gqhgsja-Pvilzx-Ceumuv Hx Patient Social History Alcohol Use: Denies Use Recreational Drug Use: No Smoking Status: Former Smoker Former Smoker/When Quit: Apr 17, 2010 Recent Foreign Travel: No Contact w/Someone Who Travel: No Recent Infectious Disease Expo: No Recent Hopitalizations: Yes Immunizations Up To Date Tetanus Booster (TDap): Unknown Date of Pneumonia Vaccine: Jul 19, 2011 Date of Influenza Vaccine: Jan 15, 2015 Seasonal Allergies Seasonal Allergies: No Surgeries HX Surgeries: Yes (HERNIA, CYST FROM NECK, OVARIAN CYST, COLON RESECTION) Surgeries: Appendectomy, Bowel Surgery, Gallbladder, Hysterectomy Respiratory Hx Respiratory Disorders: Yes (MILD COPD, ASTHMA A CHILD) Respiratory Disorders: COPD Cardiovascular Hx Cardiac Disorders: No Neurological Hx Neurological Disorders: No Reproductive System Hx Reproductive Disorders: No Sexually Transmitted Disease: No HIV/AIDS: No Female Reproductive Disorders: Denies Genitourinary Hx Genitourinary Disorders: No Gastrointestinal Hx Gastrointestinal Disorders: Yes (HX COLON CANCER) Gastrointestinal Disorders: Hepatitis Musculoskeletal Hx Musculoskeletal Disorders: Yes Musculoskeletal Disorders: Arthritis, Chronic Back Pain Endocrine Hx Endocrine Disorders: Yes Endocrine Disorders: Hypothyroidsim HEENT HX ENT Disorders: No (GLASSES, FULL SET OF DENTURES) Hearing Impairment: Denies Cancer Hx Cancer: Yes Cancer: Colon Psychosocial Hx Psychiatric Problems: Yes Behavioral Health Disorders: Anxiety, Depression Integumentary HX Skin/Integumentary Disorder: No Skin/Integumentary Disorders: Pruritis Blood Transfusions Hx Blood Disorders: Yes (ANEMIA) Adverse Reaction to a Blood Tr: No Reviewed Nursing Assessment Reviewed/Agree w Nursing PMH: Yes Family Medical History Significant Family History: Heart Disease Family Medial History: Arthritis G8 BROTHER G8 SISTER FH: breast cancer 19 MOTHER Myocardial infarction 19 FATHER Physical Exam Vital Signs VS - Last 72 Hours, by Label 04/19/16 14:57 Temp 97.7 Pulse 71 Resp 22 B/P 135/76 Pulse Ox 100 O2 Delivery Room Air Capillary Refill : Less Than 3 Seconds General Appearance: WD/WN no apparent distress HEENT: PERRL/EOMI pharynx normal Neck: full range of motion supple Respiratory: lungs clear normal breath sounds Cardiovascular: regular rate, rhythm no murmur Gastrointestinal: non tender soft Extremities: non-tender normal inspection Back: normal inspection no CVA tenderness no vertebral tenderness Neurologic/Psychiatric: alert oriented x 3 Skin: normal color warm/dry Progress/Results/Core Measures Results/Orders Lab Results Laboratory Tests Test 04/19/16 15:30 04/19/16 15:48 Range/Units Alanine Aminotransferase (ALT/SGPT) 10 0-55 U/L Albumin 3.2 3.2-4.5 G/DL Alkaline Phosphatase 61 40-136 U/L Anion Gap 9 5-14 MMOL/L Aspartate Amino Transf (AST/SGOT) 17 5-34 U/L BUN/Creatinine Ratio 13 Basophils # (Auto) 0.1 0.0-0.1 10^3/uL Basophils (%) (Auto) 1 0-10 % Blood Urea Nitrogen 9 7-18 MG/DL C-Reactive Protein High Sensitivity 1.05 H 0.00-0.50 MG/DL Calcium Level 8.6 8.5-10.1 MG/DL Carbon Dioxide Level 21 21-32 MMOL/L Chloride Level 108 H 98-107 MMOL/L Creatinine 0.68 0.60-1.30 MG/DL Eosinophils # (Auto) 0.0 0.0-0.3 10^3/uL Eosinophils (%) (Auto) 1 0-10 % Estimat Glomerular Filtration Rate > 60 Glucose Level 98 70-105 MG/DL Hematocrit 32 L 35-52 % Hemoglobin 10.1 L 11.5-16.0 G/DL Lactic Acid Level 1.3 0.5-2.0 MMOL/L Lymphocytes # (Auto) 2.0 1.0-4.0 X 10^3 Lymphocytes (%) (Auto) 26 12-44 % Magnesium Level 1.9 1.8-2.4 MG/DL Mean Corpuscular Hemoglobin 28 25-34 PG Mean Corpuscular Hemoglobin Concent 32 32-36 G/DL Mean Corpuscular Volume 88 80-99 FL Mean Platelet Volume 10.6 H 7.4-10.4 FL Monocytes # (Auto) 0.5 0.0-1.0 X 10^3 Monocytes (%) (Auto) 7 0-12 % Neutrophils # (Auto) 5.1 1.8-7.8 X 10^3 Neutrophils (%) (Auto) 67 42-75 % Platelet Count 231 130-400 10^3/uL Potassium Level 4.4 3.6-5.0 MMOL/L Red Blood Count 3.61 L 4.35-5.85 10^6/uL Red Cell Distribution Width 17.7 H 10.0-14.5 % Sodium Level 138 135-145 MMOL/L Total Bilirubin 0.3 0.1-1.0 MG/DL Total Protein 5.8 L 6.4-8.2 G/DL White Blood Count 7.6 4.3-11.0 10^3/uL Urine Bacteria NEGATIVE /HPF Urine Bilirubin NEGATIVE NEGATIVE Urine Casts NONE /LPF Urine Clarity CLEAR Urine Color YELLOW Urine Crystals NONE /LPF Urine Culture Indicated NO Urine Glucose (UA) NEGATIVE NEGATIVE Urine Ketones NEGATIVE NEGATIVE Urine Leukocyte Esterase NEGATIVE NEGATIVE Urine Mucus NEGATIVE /LPF Urine Nitrite NEGATIVE NEGATIVE Urine Protein NEGATIVE NEGATIVE Urine RBC NONE /HPF Urine RBC (Auto) NEGATIVE NEGATIVE Urine Specific [place] 1.010 L 1.016-1.022 Urine Urobilinogen NORMAL NORMAL MG/DL Urine WBC RARE /HPF Urine pH 8 5-9 My Orders Orders-YOLY BRAUN MD Cbc With Automated Diff (04/19/16 15:04) Comprehensive Metabolic Panel (04/19/16 15:04) Hs C Reactive Protein (04/19/16 15:04) Lactic Acid Analyzer (04/19/16 15:04) Magnesium (04/19/16 15:04) Ua Culture If Indicated (04/19/16 15:04) Ct Abdomen/Pelvis Wo (04/19/16 15:04) Ondansetron Injection (Zofran Injectio (04/19/16 15:15) Ns Iv 1000 Ml (Sodium Chloride 0.9%) (04/19/16 15:04) Hydromorphone Injection (Dilaudid Inject (04/19/16 15:04) Hydromorphone Injection (Dilaudid Inject (04/19/16 15:33) Hydromorphone Injection (Dilaudid Inject (04/19/16 15:57) Hyoscyamine Sl Tablet (Levsin Sl Tablet) (04/19/16 16:00) Ondansetron Injection (Zofran Injectio (04/19/16 17:15) Ketamine Injection (Ketalar Injection) (04/19/16 17:15) Ns Iv 1000 Ml (Sodium Chloride 0.9%) (04/19/16 17:09) Medications Given in ED Current Medications Medications Dose Ordered Sig/Juan Route Start Time Stop Time Status Last Admin Dose Admin Hyoscyamine Sulfate 0.125 mg ONCE ONCE SL 04/19/16 16:00 04/19/16 16:01 DC 04/19/16 16:04 0.125 MG Ketamine HCl 75 mg 75 mg ONCE ONCE IV 04/19/16 17:15 04/19/16 17:16 DC 04/19/16 17:18 75 MG Ondansetron HCl 4 mg ONCE ONCE IVP 04/19/16 15:15 04/19/16 15:16 DC 04/19/16 15:29 4 MG Ondansetron HCl 4 mg ONCE ONCE IVP 04/19/16 17:15 04/19/16 17:16 DC 04/19/16 17:19 4 MG Sodium Chloride 1,000 ml STK-MED ONCE .ROUTE 04/19/16 17:09 04/19/16 17:17 DC 04/19/16 17:18 Vital Signs/I&O Vital Sign - Last 12Hours 04/19/16 14:57 Temp 97.7 Pulse 71 Resp 22 B/P 135/76 Pulse Ox 100 O2 Delivery Room Air Blood Pressure Mean: 95 Progress Note : Progress Note Seen and evaluated. IV via port access. Labs, UA, normal saline 1 L bolus, Dilaudid 1 mg IV and Zofran 4 mg IV ordered. Repeat Dilaudid 1 mg IV ordered. 1629: I did discuss the case with Dr. Monaco. He will see the patient in consult. He does have concerns related to patient's metastatic disease. Recommending NG tube as needed. CT results discussed. 1641: I did discuss the case with Dr. Lopez. She will except the patient and admission. Pain meds per Dr. Monaco. We will pursue NG tube. 1701: I did discuss the case with Dr. Monaco again. We will do Dilaudid 1 mg IV every 2 hours when necessary pain. Lorazepam as needed for anxiety due to patient history. We will continue Zofran as needed. NG tube will be placed. 1740: NG tube to low wall suction placed using ketamine for moderate sedation. Patient tolerated procedure well. Portable CXR done. Admit, inpatient status. Patient and family agree with plan. Diagnostic Imaging Diagonstic Imaging: CT Plain Films/CT/US/NM/MRI: abdomen, pelvis Comments NAME: MADHAVI RENEE [facility] REC#: [id number] PT STATUS: REG ER : 1960 PHYSICIAN: YOLY BRAUN MD ADMIT DATE: 04/19/16/ER Draft Date of Exam:04/19/16 CT ABDOMEN/PELVIS WO PROCEDURE: CT abdomen and pelvis without contrast. TECHNIQUE: Multiple contiguous axial images were obtained through the abdomen and pelvis without the use of intravenous contrast. INDICATION: Pain, history of bowel obstruction. COMPARISON: 04/12/2016. FINDINGS: Lower abdominal and pelvic small bowel dilatation with differential air-fluid levels and distal intraluminal fecalization is a redemonstrated finding, although we note maximal small bowel distention substantially improved from the prior exam. Findings are either recurrent less severe features of the small bowel obstruction or reflect interval improvement since the prior findings of small bowel obstruction. Left lower quadrant ostomy present without parastomal hernia. The stomach and duodenum were not grossly distended. Rectum is oversewn. There is right lower quadrant small bowel anastomosis. No free air or pneumatosis. No ascites, abscess, hematoma, or other fluid collection. Right lower quadrant inflammatory infiltration of the fat has essentially resolved. The urinary tracts are unobstructed. The gallbladder is absent. No bile duct dilatation. Spleen negative. Left adrenal nodule, 2.2 cm, unchanged. IMPRESSION: Improved residual or recurrent less severe features of small bowel obstruction with resolution of previous right lower quadrant mesenteric edema. No abscess or perforation. No ascites. Unobstructed urinary tracts. No parastomal hernia. Postoperative changes and left adrenal nodule are unchanged from prior. Dictated on workstation # [id number] Dict: 04/19/16 1558 Trans: 04/19/16 1607 [id number] Interpreted by: DEMETRIO TORRES Electronically signed by: Reviewed: Reviewed by Me Diagonstic Imaging: Xray Plain Films/CT/US/NM/MRI: chest Comments NG tube in good position. Reviewed: Reviewed by Me Departure Communication Time/Spoke to Admitting Phy: 16:41 Time/Spoke to Consulting Physi: 17:00 Impression Impression: Primary Impression: metastatic colon cancer with small bowel obstruction Disposition: ADMITTED INPATIENT Condition: Stable Decision to Admit Reason: Admit from ER (General) Decision to Admit/Date: Apr 19, 2016 Time/Decision to Admit Time: 16:41 Departure-Patient Inst. Referrals: NO,LOCAL PHYSICIAN (PCP/Family) Primary Care Physician YOLY BRAUN MD Apr 19, 2016 15:23
[2016-04-19 15:47] LABS: BASOPHILS # (AUTO) 0.1 10^3/uL (0.0-0.1); BASOPHILS % (AUTO) 1 % (0-10); EOSINOPHILS % (AUTO) 1 % (0-10); LYMPHOCYTES % (AUTO) 26 % (12-44); MEAN CORPUSCULAR HEMOGLOBIN 28 PG (25-34); MEAN CORPUSCULAR HGB CONC 32 G/DL (32-36); MEAN CORPUSCULAR VOLUME 88 FL (80-99); MEAN PLATELET VOLUME 10.6 FL (7.4-10.4); MONOCYTES # (AUTO) 0.5 X 10^3 (0.0-1.0); MONOCYTES % (AUTO) 7 % (0-12); NEUTROPHILS # (AUTO) 5.1 X 10^3 (1.8-7.8); NEUTROPHILS % (AUTO) 67 % (42-75); PLATELET COUNT 231 10^3/uL (130-400); RED BLOOD COUNT 3.61 10^6/uL (4.35-5.85); RED CELL DISTRIBUTION WIDTH 17.7 % (10.0-14.5); WHITE BLOOD COUNT 7.6 10^3/uL (4.3-11.0)
[2016-04-19 15:54] LABS: BILIRUBIN,URINE NEGATIVE (NEGATIVE); KETONES,URINE NEGATIVE (NEGATIVE); LEUKOCYTE ESTERASE ,URINE NEGATIVE (NEGATIVE); NITRITE,URINE NEGATIVE (NEGATIVE); PH,URINE 8 (5-9); PROTEIN,URINE NEGATIVE (NEGATIVE); UROBILINOGEN,URINE NORMAL (NORMAL)
[2016-04-19 15:59] LABS: ALANINE AMINOTRANSFERASE 10 U/L (0-55); ALBUMIN 3.2 G/DL (3.2-4.5); ANION GAP 9 MMOL/L (5-14); ASPARTATE AMINO TRANSFERASE 17 U/L (5-34); BILIRUBIN,TOTAL 0.3 MG/DL (0.1-1.0); BLOOD UREA NITROGEN 9 MG/DL (7-18); BUN/CREATININE RATIO 13; CALCIUM 8.6 MG/DL (8.5-10.1); CARBON DIOXIDE 21 MMOL/L (21-32); CHLORIDE 108 MMOL/L (98-107); CREATININE SERUM 0.68 MG/DL (0.60-1.30); GFR ESTIMATED > 60; GLUCOSE 98 MG/DL (70-105); MAGNESIUM 1.9 MG/DL (1.8-2.4); POTASSIUM 4.4 MMOL/L (3.6-5.0); SODIUM 138 MMOL/L (135-145); TOTAL PROTEIN 5.8 G/DL (6.4-8.2); hs C REACTIVE PROTEIN 1.05 MG/DL (0.00-0.50)
[2016-04-19] MEDS ORDERED: HYOSCYAMINE 0.125 MG (LEVSIN) TAB SL ONE (16:00)
[2016-04-19 16:06] LABS: WBC,URINE RARE /HPF
--- NOTE | 2016-04-19 16:07 | Diagnostic Imaging Report ---
PROCEDURE: CT abdomen and pelvis without contrast. TECHNIQUE: Multiple contiguous axial images were obtained through the abdomen and pelvis without the use of intravenous contrast. INDICATION: Pain, history of bowel obstruction. COMPARISON: 04/12/2016. FINDINGS: Lower abdominal and pelvic small bowel dilatation with differential air-fluid levels and distal intraluminal fecalization is a redemonstrated finding, although we note maximal small bowel distention substantially improved from the prior exam. Findings are either recurrent less severe features of the small bowel obstruction or reflect interval improvement since the prior findings of small bowel obstruction. Left lower quadrant ostomy present without parastomal hernia. The stomach and duodenum were not grossly distended. Rectum is oversewn. There is right lower quadrant small bowel anastomosis. No free air or pneumatosis. No ascites, abscess, hematoma, or other fluid collection. Right lower quadrant inflammatory infiltration of the fat has essentially resolved. The urinary tracts are unobstructed. The gallbladder is absent. No bile duct dilatation. Spleen negative. Left adrenal nodule, 2.2 cm, unchanged. IMPRESSION: Improved residual or recurrent less severe features of small bowel obstruction with resolution of previous right lower quadrant mesenteric edema. No abscess or perforation. No ascites. Unobstructed urinary tracts. No parastomal hernia. Postoperative changes and left adrenal nodule are unchanged from prior. Dictated by: Dictated on workstation # [id number]
[2016-04-19] MEDS ORDERED: NS IV 1000 ML 1,000 ML ONE (17:09)
[2016-04-19] MEDS ORDERED: KETAMINE HCL 100 MG/ML 5 ML VIAL IV ONE (17:15)
[2016-04-19] MEDS ORDERED: LORazepam INJ 2 MG/ML (ATIVAN) VIAL IVP ONE (18:00)
--- NOTE | 2016-04-19 18:13 | Diagnostic Imaging Report ---
INDICATION: Post NG placement. COMPARISON: 04/12/2016. FINDINGS: Upright portable view of the chest is obtained. There is a left central line which appears to be in the distal superior vena cava. There is a nasogastric tube present which appears to be in the stomach. The side port is beyond the gastroesophageal junction. Heart size is normal. The pulmonary vessels appear unremarkable. There is no pneumothorax, mediastinal widening, or pleural fluid demonstrated. The lungs appear clear. IMPRESSION: NG tube placement appears to be within the stomach. No acute cardiopulmonary abnormality is demonstrated. Dictated by: Dictated on workstation # [id number]
[2016-04-19] MEDS ORDERED: HYDROmorphone (DILAUDID) 2 MG/ML VIAL ONE (18:45)
[2016-04-19 18:50] VITALS: BP 121/80
[2016-04-19] MEDS ORDERED: HYDROmorphone (DILAUDID) 2 MG/ML VIAL IV PRN (19:00)
[2016-04-19] MEDS ORDERED: CATHETER FLUSH 10 ML SYR IV PRN (19:15)
[2016-04-19] MEDS: NS IV 1000 ML 1,000 ML IV SCH ×2 (19:56→22:14)
[2016-04-19] MEDS: LORazepam INJ 2 MG/ML (ATIVAN) VIAL IV PRN (22:09)
[2016-04-19] MEDS ORDERED: HYDROmorphone (DILAUDID) 2 MG/ML VIAL IVP PRN (22:15)
[2016-04-19] MEDS: ONDANSETRON 4 MG/2 ML (SDV) Z0FRAN IV PRN (23:49)
[2016-04-20] VITALS: BP 119/72
[2016-04-20] MEDS: HYDROmorphone (DILAUDID) 2 MG/ML VIAL IV PRN ×6 (00:30→21:54)
[2016-04-20 04:00] VITALS: BP 104/58
[2016-04-20] MEDS: NS IV 1000 ML 1,000 ML IV SCH ×3 (05:30→21:54)
[2016-04-20 06:04] LABS: BASOPHILS % (AUTO) 0 % (0-10); EOSINOPHILS # (AUTO) 0.1 10^3/uL (0.0-0.3); EOSINOPHILS % (AUTO) 1 % (0-10); LYMPHOCYTES # (AUTO) 2.4 X 10^3 (1.0-4.0); LYMPHOCYTES % (AUTO) 34 % (12-44); MEAN CORPUSCULAR HEMOGLOBIN 28 PG (25-34); MEAN CORPUSCULAR HGB CONC 31 G/DL (32-36); MEAN CORPUSCULAR VOLUME 90 FL (80-99); MEAN PLATELET VOLUME 10.7 FL (7.4-10.4); MONOCYTES # (AUTO) 0.6 X 10^3 (0.0-1.0); MONOCYTES % (AUTO) 8 % (0-12); NEUTROPHILS % (AUTO) 56 % (42-75); PLATELET COUNT 202 10^3/uL (130-400); RED BLOOD COUNT 3.03 10^6/uL (4.35-5.85); RED CELL DISTRIBUTION WIDTH 17.9 % (10.0-14.5); WHITE BLOOD COUNT 7.1 10^3/uL (4.3-11.0)
[2016-04-20 06:20] LABS: ALANINE AMINOTRANSFERASE 7 U/L (0-55); ALBUMIN 2.6 G/DL (3.2-4.5); ANION GAP 5 MMOL/L (5-14); ASPARTATE AMINO TRANSFERASE 14 U/L (5-34); BILIRUBIN,TOTAL 0.2 MG/DL (0.1-1.0); BLOOD UREA NITROGEN 5 MG/DL (7-18); BUN/CREATININE RATIO 8; CALCIUM 8.1 MG/DL (8.5-10.1); CARBON DIOXIDE 22 MMOL/L (21-32); CHLORIDE 112 MMOL/L (98-107); CREATININE SERUM 0.64 MG/DL (0.60-1.30); GFR ESTIMATED > 60; GLUCOSE 83 MG/DL (70-105); POTASSIUM 3.9 MMOL/L (3.6-5.0); SODIUM 139 MMOL/L (135-145); TOTAL PROTEIN 4.9 G/DL (6.4-8.2)
--- NOTE | 2016-04-20 10:59 | History & Physicial ---
History of Present Illness History of Present Illness Reason for visit/HPI This is a 56-year-old patient with history of metastatic colon cancer who is well known to me that has been admitted with complaints of recurrent abdominal pain, nausea and vomiting. Patient was recently discharged on 04/18/16 after being admitted on 04/12/17 with partial small bowel obstruction which was conservatively managed. Repeat abdominal CAT scan done in the emergency room again shows dilated small bowel loops but findings are not as severe as were on the scan done on 04/12/16. Patient describes coffee ground emesis associated with her previous admission but not with the current bout of abdominal pain. Past History is significant for: 1. 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 a. Status post 6 cycles of FOLFOX plus Vectibix initiated 09/06/14 through 12/22/15, FOLFOX was discontinued because of oxaliplatin reaction. b. Status post 6 cycles of Vectibix plus FOLFIRI initiated 01/19/16, last cycle given on 03/30/16. 2. Hypothyroidism 3. 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 5. Remote history of substance abuse and excessive alcohol use Date of Admission Apr 19, 2016 at 17:22 I consulted on this patient on 04/20/16 10:58 Attending Physician Jun Lopez MD Admitting Physician Yovana,Local Physician Consult Allergies and Home Medications Allergies Coded Allergies: oxaliplatin (Verified Allergy, Severe, 01/07/16) Home Medications Baclofen 10 Mg Tablet 5-10 MG PO TID PRN PRN MUSCLE SPASMS (Reported) Diazepam 10 Mg Tablet 10 MG PO HS (Reported) Doxycycline Hyclate 100 Mg Capsule 100 MG PO DAILY (Reported) Hydrocodone/Acetaminophen 1 Each Tablet 1 TAB PO Q4H PRN PRN PAIN (Reported) Levothyroxine Sodium 75 Mcg Tablet 75 MCG PO DAILY (Reported) Loperamide HCl 2 Mg Capsule 2 MG PO UD PRN PRN LOOSE STOOLS (Reported) Ondansetron HCl 8 Mg Tablet 8 MG PO Q8H PRN PRN NAUSEA (Reported) Paroxetine HCl 20 Mg Tablet 20 MG PO DAILY (Reported) Potassium Chloride 10 Meq Tablet.er 10 MEQ PO TID (Reported) Zolpidem Tartrate 10 Mg Tablet 15 MG PO HS (Reported) TAKES 1 & 1/2 (10MG) TABLETS Past Luiejil-Sdgtdi-Dkvzra Hx Patient Social History Alcohol Use: Denies Use Recreational Drug Use: No Smoking Status: Former Smoker Former smoker/When Quit: Apr 17, 2010 Physical Abuse Screen: No Sexual Abuse: No Recent Foreign Travel: No Contact w/other who traveled: No Recent Hopitalizations: Yes Recent Infectious Disease Expo: No Immunizations Up To Date Tetanus Booster (TDap): Unknown Date of Pneumonia Vaccine: Jul 19, 2011 Date of Influenza Vaccine: Jan 16, 2016 Seasonal Allergies Seasonal Allergies: No Surgeries HX Surgeries: Yes (HERNIA, CYST FROM NECK, OVARIAN CYST, COLON RESECTION) Surgeries: Appendectomy, Bowel Surgery, Gallbladder, Hysterectomy Respiratory Hx Respiratory Disorders: Yes (MILD COPD, ASTHMA A CHILD) Respiratory Disorders: COPD Cardiovascular Hx Cardiovascular Disorders: No Neurological Hx Neurological Disorders: No Reproductive System Hx Reproductive Disorders: No Sexually Transmitted Disease: No HIV/AIDS: No Female Reproductive Disorders: Denies Genitourinary Hx Genitourinary Disorders: No Gastrointestinal Hx Gastrointestinal Disorders: Yes (HX COLON CANCER) Gastrointestinal Disorders: Hepatitis Musculoskeletal Hx Musculoskeletal Disorders: Yes Musculoskeletal Disorders: Arthritis, Chronic Back Pain Endocrine Hx Endocrine Disorders: Yes Endocrine Disorders: Hypothyroidsim HEENT HX ENT Disorders: No (GLASSES, FULL SET OF DENTURES) Hearing Impairment: Denies Cancer Hx Cancer: Yes Cancer: Colon Psychosocial Hx Psychiatric Problems: Yes Behavioral Health Disorders: Anxiety, Depression Integumentary HX Skin/Integumentary Disorder: No Skin/Integumentary Disorders: Pruritis Blood Transfusions Hx Blood Disorders: Yes (ANEMIA) Adverse Reaction to a Blood Tr: No Reviewed Nursing Assessment Reviewed/Agree w Nursing PMH: Yes Family Medical History Significant Family History: Heart Disease Family Hx: Arthritis G8 BROTHER G8 SISTER FH: breast cancer 19 MOTHER Myocardial infarction 19 FATHER Constitutional: malaise weakness Gastrointestinal: abdominal pain nausea vomiting Musculoskeletal: back pain Physical Exam Vital Signs Vital Sign - Last 12Hours 04/19/16 14:57 Temp 97.7 Pulse 71 Resp 22 B/P 135/76 Pulse Ox 100 O2 Delivery Room Air Capillary Refill : Less Than 3 Seconds General Appearance: Chronically ill Other (NG tube in place attached to wall unit;) HEENT: PERRL/EOMI Neck: Full Range of Motion Normal Inspection Non Tender Supple Respiratory: Chest Non Tender Lungs Clear Normal Breath Sounds No Accessory Muscle Use No Respiratory Distress Cardiovascular: Regular Rate, Rhythm No Edema No Gallop No JVD Gastrointestinal: Soft Rectal: Deferred Back: Normal Inspection No CVA Tenderness No Vertebral Tenderness Extremity: Non Tender No Calf Tenderness No Pedal Edema Neurologic/Psychiatric: Alert Oriented x3 No Motor/Sensory Deficits Normal 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 Norm as Tested Lymphatic: No No Adenopathy, No Axilla Node Tender (L), No Axilla Node Tender ( R), No Inguinal Node Tender (L), No Inguinal Node Tender (R), No Other Comments Laboratory Tests 04/19/16 15:30: C-Reactive Protein High Sensitivity 1.05H, Chloride Level 108H, Hematocrit 32L, Hemoglobin 10.1L, Mean Platelet Volume 10.6H, Red Blood Count 3.61L, Red Cell Distribution Width 17.7H, Total Protein 5.8L 04/19/16 15:48: Urine Specific [place] [facility] 1.010L 04/20/16 05:34: Chloride Level 112H, Hematocrit 27L, Hemoglobin 8.6L, Mean Platelet Volume 10.7H , Red Blood Count 3.03L, Red Cell Distribution Width 17.9H, Total Protein 4.9L, Albumin 2.6L, Blood Urea Nitrogen 5L, Calcium Level 8.1L, Mean Corpuscular Hemoglobin Concent 31L Laboratory Tests 04/19/16 15:30 04/20/16 05:34 RADIOLOGY REVIEW: ABD CT SCAN done 04/19/16: IMPRESSION: Improved residual or recurrent less severe features of small bowel obstruction with resolution of previous right lower quadrant mesenteric edema. No abscess or perforation. No ascites. Unobstructed urinary tracts. No parastomal hernia. Postoperative changes and left adrenal nodule are unchanged from prior. Assessment/Plan Assessment and Plan 1. Recurrent Partial Small Bowel Obstruction 2. Metastatic colon cancer with multiple small bowel and serosal metastases initially diagnosed with PET/CT scan done in June 2015 and confirmed at exploratory laparotomy. a. Status post end colostomy placement after episode of small bowel obstruction arising from recurrent metastatic colon cancer in June 2015 3. Acute on chronic multifactorial anemia 4. Abdominal pain related to number 1 5. Chronic back pain arising from discogenic disease 6. Multiple comorbidities including depression, hypothyroidism, remote history of substance and alcohol abuse. Clinical Quality Measures DVT/VTE Risk/Contraindication: Risk Factor Score Per Nursin RFS Level Per Nursing on Admit: 4+=Very High Contraindications-Pharm: Other *list below* Other: Patient has multiple serosal and small bowel metastases and has had a drop in her hemoglobin as well as recent history of coffee-ground emesis. We will monitor without pharmacologic anticoagulation but we will continue SCDs at this time. JUN LOPEZ MD Apr 20, 2016 10:59
[2016-04-20 12:00] VITALS: BP 101/61
[2016-04-20] MEDS ORDERED: CHLORASEPTIC SPRAY 177 ML LIQUID MC PRN (14:15)
--- NOTE | 2016-04-20 15:10 | CONSULTATION REPORT ---
DATE OF ADMISSION: 04/19/2016 DATE OF CONSULTATION: 04/20/2016 ADMITTING PHYSICIAN: Dr. Lopez. Ms. Maryellen Stuart is a 56-year-old female who we had seen recently in the past. She has a history of what appears to be sigmoid colonic carcinoma diagnosed in 2011 and underwent to open a colon resection, as well as primary anastomosis. She did also receive chemotherapy after the surgery. Initial surgery did fine 19 enlarged lymph nodes, which were negative for malignancy and she was a [id number]. She underwent chemotherapy with FOLFOX, However discontinued oxaliplatin secondary to prolonged myelosuppression. She was doing well however, did develop crampy abdominal pain and when further evaluation was found to have recurrent tumor by exploratory laparotomy on 07/05/2015 and was found to have multiple small bowel serosal metastases which was also confirmed on PET CT scan. She then underwent Vectibix plus FOLFIRI which was started on 01/19/2016 and was ongoing. She was admitted on 04/12/2016 for crampy abdominal pain and abdominal distention. A CT scan was performed, which did show dilated loops of small bowel and possible transition zone close to the terminal ileum. There was a significant amount of stool of the right colon and transverse colon as well. She was treated medically with bowel rest and IV fluids and did do better. She was eventually discharged home; however states that she had mashed potatoes and tuna on toast and the following morning felt abdominal distention, pain, as well as an episode of nausea and vomiting. A CT scan was again performed, which did show some dilated loops of small bowel; however not as severe as the previous time. Upon examination, there is an intact end colostomy, with soft stools within the bag. PAST MEDICAL HISTORY: 1. Metastatic colon cancer. 2. Gastroesophageal reflux disease. 3. Hypothyroid. 4. Depression. 5. History of chronic hepatitis C. PAST SURGERIES: 1. Laparoscopic cholecystectomy. 2. Hysterectomy and left salpingo-oophorectomy. 3. Ventral abdominal incisional hernia repair. 4. Open rectosigmoid low anterior resection 17. 5. Exploratory laparotomy and end colostomy 08/2015. 6. Tonsillectomy. ALLERGIES: No known drug allergies. MEDICATIONS: 1. Diazepam 10 mg q.i.d. p.r.n. 2. Fentanyl patch 100 mcg every 72 hours. 3. Hydrocodone p.r.n. 4. Levothyroxine 75 mcg daily. 5. Omeprazole 20 mg daily. 6. Fluoxetine 20 mg daily. 7. Zolpidem 10 mg at bedtime. 8. Baclofen 10 mg t.i.d. p.r.n. SOCIAL HISTORY: Previous smoke 40 pack-years, quit 2011, previous alcohol quit 2011 previous history of IV drug use. FAMILY HISTORY: Father myocardial infarction. Mother breast cancer. VITAL SIGNS: Temperature 96.8, blood pressure 108/72, pulse 76, respirations 18, pulse oximetry 99% on room air. REVIEW OF SYSTEMS: This is a well-nourished female currently in no acute distress. She is not experiencing any shortness of breath or difficulty breathing. No chest pain, palpitations, diaphoresis. Intermittent episodes of nausea none since the NG tube was placed. She does not have any current abdominal distention. Her end colostomy appears to be functional with soft stools within the bag. PHYSICAL EXAMINATION: CHEST: A few scattered rales bilaterally. HEART: Regular. EXTREMITIES: No lower extremity edema. Negative Homans sign. HEENT: No scleral icterus, no cervical lymphadenopathy. ASSESSMENT AND PLAN: 56-year-old female with a partial small bowel obstruction most likely secondary to metastatic colon cancer. We will discuss the case with oncology. She is currently on chemotherapy and appears to be immunocompromised. We will continue the conservative management with bowel rest. However it appears that she does have some level of small bowel obstruction most likely secondary to metastatic disease. At this time she already has an end colostomy. However, the obstruction may be encompassing more proximally involving the small bowel. If this is the case we may at minimum, possibly proceed with some form of loop ileostomy. We will continue with conservative management for now and discuss the case with oncology and also proceed with an upper GI contrast study. Job ID: [id number] Dictated Date: 04/20/2016 13:49:45 Ramp Supervisor Date: 04/20/2016 14:49:51/jane BARRIOS
[2016-04-20 16:00] VITALS: BP 110/67
[2016-04-20] MEDS: ONDANSETRON 4 MG/2 ML (SDV) Z0FRAN IV PRN (17:49)
[2016-04-20 20:00] VITALS: BP 129/67
--- NOTE | 2016-04-20 20:05 | Diagnostic Imaging Report ---
Upright portable view of the chest is obtained. FINDINGS: Nasogastric tube appears to be in the proximal stomach. The side port appears to be just beyond the gastroesophageal junction. A left Port-A-Cath tip is at the caval/atrial junction and unchanged. Heart size is normal. The pulmonary vessels appear unremarkable. There is no pneumothorax, mediastinal widening or pleural fluid demonstrated. IMPRESSION: 1. The nasogastric tube tip is in the proximal stomach with the side-port just beyond the gastroesophageal junction, fairly similar in position to the prior exam. 2. No new or acute abnormality is suspected in the chest. Dictated by: Dictated on workstation # [id number]
--- NOTE | 2016-04-20 20:05 | Diagnostic Imaging Report ---
INDICATION: NG tube placement. COMPARISON: 04/16/2016. FINDINGS: No NG tube is demonstrated on this exam. The bowel gas pattern is abnormal with mildly distended air-filled small bowel, significantly less distended and prominent when compared to the prior study. There is some scattered colonic gas and stool present. There are clips in the right upper quadrant from previous cholecystectomy, and there are numerous clips in the pelvis as well. IMPRESSION: 1. No evidence of an NG tube on this exam 2. Bowel gas pattern is abnormal consistent with ileus or obstruction but is moderately improved from the recent prior study from April 16. Dictated by: Dictated on workstation # [id number]
[2016-04-21] VITALS: BP 110/66
[2016-04-21] MEDS: HYDROmorphone (DILAUDID) 2 MG/ML VIAL IV PRN ×10 (00:24→23:14)
[2016-04-21 04:00] VITALS: BP 113/59
[2016-04-21] MEDS: NS IV 1000 ML 1,000 ML IV SCH ×3 (05:41→21:51)
[2016-04-21 06:06] LABS: BASOPHILS % (AUTO) 0 % (0-10); EOSINOPHILS # (AUTO) 0.1 10^3/uL (0.0-0.3); EOSINOPHILS % (AUTO) 1 % (0-10); LYMPHOCYTES # (AUTO) 2.2 X 10^3 (1.0-4.0); LYMPHOCYTES % (AUTO) 32 % (12-44); MEAN CORPUSCULAR HEMOGLOBIN 28 PG (25-34); MEAN CORPUSCULAR HGB CONC 32 G/DL (32-36); MEAN CORPUSCULAR VOLUME 90 FL (80-99); MEAN PLATELET VOLUME 10.6 FL (7.4-10.4); MONOCYTES # (AUTO) 0.5 X 10^3 (0.0-1.0); MONOCYTES % (AUTO) 7 % (0-12); NEUTROPHILS # (AUTO) 4.1 X 10^3 (1.8-7.8); NEUTROPHILS % (AUTO) 59 % (42-75); PLATELET COUNT 185 10^3/uL (130-400); RED BLOOD COUNT 3.05 10^6/uL (4.35-5.85); RED CELL DISTRIBUTION WIDTH 17.4 % (10.0-14.5); WHITE BLOOD COUNT 6.9 10^3/uL (4.3-11.0)
[2016-04-21 06:19] LABS: ANION GAP 8 MMOL/L (5-14); BLOOD UREA NITROGEN 4 MG/DL (7-18); BUN/CREATININE RATIO 7; CARBON DIOXIDE 22 MMOL/L (21-32); CHLORIDE 110 MMOL/L (98-107); CREATININE SERUM 0.58 MG/DL (0.60-1.30); GFR ESTIMATED > 60; GLUCOSE 73 MG/DL (70-105); MAGNESIUM 1.8 MG/DL (1.8-2.4); POTASSIUM 3.5 MMOL/L (3.6-5.0); SODIUM 140 MMOL/L (135-145)
[2016-04-21] MEDS: ONDANSETRON 4 MG/2 ML (SDV) Z0FRAN IV PRN ×2 (08:13→21:09)
[2016-04-21 08:15] VITALS: BP 136/72
[2016-04-21] MEDS ORDERED: DIATRIZOATE MEGLUM/SODIUM 37% 120 ML (GASTROGRAFIN) NG ONE (09:15)
[2016-04-21] MEDS ORDERED: PROMETHAZINE INJ 25 MG/ML (PHENERGAN) AMP ONE (09:37)
[2016-04-21] MEDS ORDERED: PROMETHAZINE INJ 25 MG/ML (PHENERGAN) AMP IVP PRN (10:00)
[2016-04-21 12:45] VITALS: BP 135/87
--- NOTE | 2016-04-21 13:33 | Diagnostic Imaging Report ---
EXAMINATION: Gastrografin small bowel follow through. INDICATION: Partial small bowel obstruction. TECHNIQUE: Process Validation Engineer image of the abdomen was performed. Subsequently, the patient was given Gastrografin and serial images of the abdomen were obtained. FINDINGS: Process Validation Engineer image of the abdomen demonstrates NG tube in place. There is mild gaseous dilatation of small bowel loops with gas seen in the colon. There are multiple surgical clips in the upper abdomen and in the pelvis. There is prompt gastric emptying into the small bowel loops. There is a transient time through the small bowel of 2 hours. There are only minimally dilated bowel loops seen with no transition point identified on this exam. IMPRESSION: Minimally dilated bowel loops are seen without evidence of obstruction at this time. This could be secondary to enteritis or resolved low-grade bowel obstruction. Dictated by: Dictated on workstation # [id number]
[2016-04-21] MEDS: POTASSIUM CL 10MEQ/50ML IVPB 50 ML IV SCH ×3 (15:11→17:16)
--- NOTE | 2016-04-21 15:37 | Progress Note (SOAP) ---
Subjective Subjective/Events-last exam doing ok. has had nausea since administration oral contrast. contrast did go all the way thru to colon in normal time frame. no bowel obstruction seen. patient may have slow transit time. Objective Exam Vital Signs Date Time Temp Pulse Resp B/P Pulse Ox O2 Delivery O2 Flow Rate FiO2 04/21/16 08:15 97.4 87 18 136/72 94 Room Air 04/21/16 04:00 99.7 83 18 113/59 94 Room Air 04/21/16 00:00 99.1 79 18 110/66 99 Room Air 04/20/16 20:00 98.5 75 16 129/67 98 Room Air 04/20/16 16:00 98.7 72 16 110/67 97 Room Air I & O 04/21/16 07:00 Intake Total 4000 ml Output Total 3950 ml Balance 50 ml Capillary Refill : Less Than 3 Seconds General Appearance: No Apparent Distress HEENT: PERRL/EOMI Neck: Full Range of Motion Respiratory: Chest Non Tender Cardiovascular: Regular Rate, Rhythm Gastrointestinal: normal bowel sounds soft Extremity: Normal Capillary Refill Neurologic/Psychiatric: Alert Oriented x3 Skin: Normal Color Lymphatic: No Adenopathy Results Lab Laboratory Tests 04/21/16 05:35: Anion Gap 8, BUN/Creatinine Ratio 7, Basophils # (Auto) 0.0, Basophils (%) (Auto ) 0, Blood Urea Nitrogen 4L, Calcium Level 8.0L, Carbon Dioxide Level 22, Chloride Level 110H, Creatinine 0.58L, Eosinophils # (Auto) 0.1, Eosinophils (% ) (Auto) 1, Estimat Glomerular Filtration Rate > 60, Glucose Level 73, Hematocrit 27L, Hemoglobin 8.6L, Lymphocytes # (Auto) 2.2, Lymphocytes (%) (Auto ) 32, Magnesium Level 1.8, Mean Corpuscular Hemoglobin 28, Mean Corpuscular Hemoglobin Concent 32, Mean Corpuscular Volume 90, Mean Platelet Volume 10.6H, Monocytes # (Auto) 0.5, Monocytes (%) (Auto) 7, Neutrophils # (Auto) 4.1, Neutrophils (%) (Auto) 59, Platelet Count 185, Potassium Level 3.5L, Red Blood Count 3.05L, Red Cell Distribution Width 17.4H, Sodium Level 140, White Blood Count 6.9 Assessment/Plan Assessment/Plan Assess & Plan/Chief Complaint ileus vs. ileitis and delayed transit. continue medical management for now with IV nutrition. will also start PO liquid alimentation when able. Diagnosis/Problems: Clinical Quality Measures DVT/VTE Risk/Contraindication: Risk Factor Score Per Nursin RFS Level Per Nursing on Admit: 4+=Very High Contraindications-Pharm: Other *list below* Other: Patient has multiple serosal and small bowel metastases and has had a drop in her hemoglobin as well as recent history of coffee-ground emesis. We will monitor without pharmacologic anticoagulation but we will continue SCDs at this time. RAS SHELBY MD Apr 21, 2016 3:37 pm
[2016-04-21 16:00] VITALS: BP 130/65
--- NOTE | 2016-04-21 19:08 | Progress Note (SOAP) ---
Subjective Subjective/Events-last exam Patient seen this early afternoon just after returning from the small bowel follow-through which showed that the obstruction is present at this time possibly ileus versus ileitis versus delayed transit time was suggested. Objective Exam Vital Signs Date Time Temp Pulse Resp B/P Pulse Ox O2 Delivery O2 Flow Rate FiO2 04/21/16 16:00 98.4 90 18 130/65 96 Room Air 04/21/16 12:45 98.7 84 18 135/87 93 Room Air 04/21/16 08:15 97.4 87 18 136/72 94 Room Air 04/21/16 04:00 99.7 83 18 113/59 94 Room Air 04/21/16 00:00 99.1 79 18 110/66 99 Room Air 04/20/16 20:00 98.5 75 16 129/67 98 Room Air I & O 04/21/16 07:00 Intake Total 4000 ml Output Total 3950 ml Balance 50 ml Capillary Refill : Less Than 3 Seconds General Appearance: No Apparent Distress Other (NG tube in place) HEENT: PERRL/EOMI Neck: Full Range of Motion Non Tender Respiratory: Lungs Clear Normal Breath Sounds No Accessory Muscle Use No Respiratory Distress Cardiovascular: Regular Rate, Rhythm No Edema No Gallop No JVD Gastrointestinal: normal bowel sounds non tender soft no organomegaly Extremity: Non Tender No Calf Tenderness Neurologic/Psychiatric: Alert Oriented x3 No Motor/Sensory Deficits Normal 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 Norm as Tested Results Lab Laboratory Tests 04/21/16 05:35: Anion Gap 8, BUN/Creatinine Ratio 7, Basophils # (Auto) 0.0, Basophils (%) (Auto ) 0, Blood Urea Nitrogen 4L, Calcium Level 8.0L, Carbon Dioxide Level 22, Chloride Level 110H, Creatinine 0.58L, Eosinophils # (Auto) 0.1, Eosinophils (% ) (Auto) 1, Estimat Glomerular Filtration Rate > 60, Glucose Level 73, Hematocrit 27L, Hemoglobin 8.6L, Lymphocytes # (Auto) 2.2, Lymphocytes (%) (Auto ) 32, Magnesium Level 1.8, Mean Corpuscular Hemoglobin 28, Mean Corpuscular Hemoglobin Concent 32, Mean Corpuscular Volume 90, Mean Platelet Volume 10.6H, Monocytes # (Auto) 0.5, Monocytes (%) (Auto) 7, Neutrophils # (Auto) 4.1, Neutrophils (%) (Auto) 59, Platelet Count 185, Potassium Level 3.5L, Red Blood Count 3.05L, Red Cell Distribution Width 17.4H, Sodium Level 140, White Blood Count 6.9 Radiology Small bowel follow-through done 04/21/16: IMPRESSION: Minimally dilated bowel loops are seen without evidence of obstruction at this time. This could be secondary to enteritis or resolved low-grade bowel obstruction. Assessment/Plan Assessment/Plan Assess & Plan/Chief Complaint 1. Recurrent Partial Small Bowel Obstruction Small bowel follow-through done today shows no obstruction at this time. Continued IV nutrition advised by Dr. SHELBY. We will await his direction regarding advancement of diet. 2. Metastatic colon cancer with multiple small bowel and serosal metastases initially diagnosed with PET/CT scan done in June 2015 and confirmed at exploratory laparotomy. a. Status post end colostomy placement after episode of small bowel obstruction arising from recurrent metastatic colon cancer in June 2015 3. Acute on chronic multifactorial anemia 4. Abdominal pain related to number 1 5. Hypokalemia-Replace potassium and recheck; 6. Chronic back pain arising from discogenic disease 7. Multiple comorbidities including depression, hypothyroidism, remote history of substance and alcohol abuse. Diagnosis/Problems: Clinical Quality Measures DVT/VTE Risk/Contraindication: Risk Factor Score Per Nursin RFS Level Per Nursing on Admit: 4+=Very High Contraindications-Pharm: Other *list below* Other: Patient has multiple serosal and small bowel metastases and has had a drop in her hemoglobin as well as recent history of coffee-ground emesis. We will monitor without pharmacologic anticoagulation but we will continue SCDs at this time. JUN SANTACRUZ MD Apr 21, 2016 19:07
[2016-04-21 19:30] VITALS: BP 112/64
[2016-04-22] VITALS: BP 116/71
[2016-04-22] MEDS: HYDROmorphone (DILAUDID) 2 MG/ML VIAL IV PRN ×2 (05:39→08:57)
[2016-04-22 05:55] LABS: BASOPHILS % (AUTO) 0 % (0-10); EOSINOPHILS # (AUTO) 0.1 10^3/uL (0.0-0.3); EOSINOPHILS % (AUTO) 1 % (0-10); LYMPHOCYTES # (AUTO) 1.8 X 10^3 (1.0-4.0); LYMPHOCYTES % (AUTO) 26 % (12-44); MEAN CORPUSCULAR HEMOGLOBIN 28 PG (25-34); MEAN CORPUSCULAR HGB CONC 32 G/DL (32-36); MEAN CORPUSCULAR VOLUME 90 FL (80-99); MEAN PLATELET VOLUME 10.2 FL (7.4-10.4); MONOCYTES # (AUTO) 0.4 X 10^3 (0.0-1.0); MONOCYTES % (AUTO) 6 % (0-12); NEUTROPHILS # (AUTO) 4.5 X 10^3 (1.8-7.8); NEUTROPHILS % (AUTO) 67 % (42-75); PLATELET COUNT 158 10^3/uL (130-400); RED CELL DISTRIBUTION WIDTH 17.4 % (10.0-14.5); WHITE BLOOD COUNT 6.8 10^3/uL (4.3-11.0)
[2016-04-22 06:15] LABS: ANION GAP 10 MMOL/L (5-14); BLOOD UREA NITROGEN 4 MG/DL (7-18); BUN/CREATININE RATIO 7; CALCIUM 7.9 MG/DL (8.5-10.1); CARBON DIOXIDE 21 MMOL/L (21-32); CHLORIDE 109 MMOL/L (98-107); CREATININE SERUM 0.61 MG/DL (0.60-1.30); GFR ESTIMATED > 60; GLUCOSE 63 MG/DL (70-105); POTASSIUM 3.2 MMOL/L (3.6-5.0); SODIUM 140 MMOL/L (135-145)
[2016-04-22 08:00] VITALS: BP 117/65
[2016-04-22] MEDS: PANTOPRAZOLE 40 MG/10 ML (PROTONIX) VIAL IV SCH (09:02)
--- NOTE | 2016-04-22 10:46 | Progress Note (SOAP) ---
Subjective Subjective/Events-last exam doing better. having significant colostomy output. abdomen nondistended. Objective Exam Vital Signs Date Time Temp Pulse Resp B/P Pulse Ox O2 Delivery O2 Flow Rate FiO2 04/22/16 08:00 96.3 88 18 117/65 97 Room Air 04/22/16 00:00 98.4 95 17 116/71 97 Room Air 04/21/16 19:30 98.3 98 20 112/64 95 Room Air 04/21/16 16:00 98.4 90 18 130/65 96 Room Air 04/21/16 12:45 98.7 84 18 135/87 93 Room Air I & O 04/22/16 07:00 Intake Total 3150 ml Output Total 2850 ml Balance 300 ml Capillary Refill : Less Than 3 Seconds General Appearance: No Apparent Distress HEENT: PERRL/EOMI Neck: Full Range of Motion Normal Inspection Respiratory: Chest Non Tender Lungs Clear Cardiovascular: Regular Rate, Rhythm Gastrointestinal: soft Extremity: Normal Capillary Refill Neurologic/Psychiatric: Alert Oriented x3 Skin: Normal Color Lymphatic: No Adenopathy Results Lab Laboratory Tests 04/22/16 05:42: Anion Gap 10, BUN/Creatinine Ratio 7, Basophils # (Auto) 0.0, Basophils (%) ( Auto) 0, Blood Urea Nitrogen 4L, Calcium Level 7.9L, Carbon Dioxide Level 21, Chloride Level 109H, Creatinine 0.61, Eosinophils # (Auto) 0.1, Eosinophils (%) (Auto) 1, Estimat Glomerular Filtration Rate > 60, Glucose Level 63L, Hematocrit 27L, Hemoglobin 8.5L, Lymphocytes # (Auto) 1.8, Lymphocytes (%) (Auto ) 26, Mean Corpuscular Hemoglobin 28, Mean Corpuscular Hemoglobin Concent 32, Mean Corpuscular Volume 90, Mean Platelet Volume 10.2, Monocytes # (Auto) 0.4, Monocytes (%) (Auto) 6, Neutrophils # (Auto) 4.5, Neutrophils (%) (Auto) 67, Platelet Count 158, Potassium Level 3.2L, Red Blood Count 3.00L, Red Cell Distribution Width 17.4H, Sodium Level 140, White Blood Count 6.8 Assessment/Plan Assessment/Plan Assess & Plan/Chief Complaint ileus vs. ileitis and delayed transit. continue medical management for now with IV nutrition. will d/c NGT and keep on clears for awhile. continue ambulation. Diagnosis/Problems: Clinical Quality Measures DVT/VTE Risk/Contraindication: Risk Factor Score Per Nursin RFS Level Per Nursing on Admit: 4+=Very High Contraindications-Pharm: Other *list below* Other: Patient has multiple serosal and small bowel metastases and has had a drop in her hemoglobin as well as recent history of coffee-ground emesis. We will monitor without pharmacologic anticoagulation but we will continue SCDs at this time. RAS SHELBY MD Apr 22, 2016 10:46
[2016-04-22] MEDS: POTASSIUM CL 10MEQ/50ML IVPB 50 ML IV SCH ×5 (13:30→19:41)
[2016-04-22] MEDS: NS IV 1000 ML 1,000 ML IV SCH ×2 (14:26→17:56)
[2016-04-22] MEDS ORDERED: LOPERAMIDE 2 MG (IMODIUM) CAP PO PRN (15:00)
[2016-04-22] MEDS ORDERED: NON-FORMULARY MEDICATION 1 EA EA (Ondansetron HCl 8 MG) PO PRN (15:00)
[2016-04-22] MEDS ORDERED: ONDANSETRON 8 MG (ZOFRAN) ORAL DISSOLVE TAB PO PRN (15:00)
[2016-04-22 15:55] VITALS: BP 122/69
--- NOTE | 2016-04-22 16:18 | Progress Note (SOAP) ---
Subjective Subjective/Events-last exam Patient comfortable this early afternoon and has been taking clear liquids since removal of NG tube this morning. We will restart oral medications. Ambulation encouraged. Objective Exam Vital Signs Date Time Temp Pulse Resp B/P Pulse Ox O2 Delivery O2 Flow Rate FiO2 04/22/16 08:00 96.3 88 18 117/65 97 Room Air 04/22/16 00:00 98.4 95 17 116/71 97 Room Air 04/21/16 19:30 98.3 98 20 112/64 95 Room Air I & O 04/22/16 07:00 Intake Total 3150 ml Output Total 2850 ml Balance 300 ml Capillary Refill : Less Than 3 Seconds General Appearance: No Apparent Distress WD/WN HEENT: PERRL/EOMI Neck: Full Range of Motion Normal Inspection Non Tender Supple Respiratory: Lungs Clear No Accessory Muscle Use No Respiratory Distress Cardiovascular: Regular Rate, Rhythm No Edema No Gallop No JVD Gastrointestinal: normal bowel sounds non tender other (Colostomy bag full of liquid stool;) Neurologic/Psychiatric: Alert Oriented x3 No Motor/Sensory Deficits Normal 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 Norm as Tested Lymphatic: No Adenopathy Results Lab Laboratory Tests 04/21/16 05:35 04/22/16 05:42 Laboratory Tests 04/22/16 05:42: Anion Gap 10, BUN/Creatinine Ratio 7, Basophils # (Auto) 0.0, Basophils (%) ( Auto) 0, Blood Urea Nitrogen 4L, Calcium Level 7.9L, Carbon Dioxide Level 21, Chloride Level 109H, Creatinine 0.61, Eosinophils # (Auto) 0.1, Eosinophils (%) (Auto) 1, Estimat Glomerular Filtration Rate > 60, Glucose Level 63L, Hematocrit 27L, Hemoglobin 8.5L, Lymphocytes # (Auto) 1.8, Lymphocytes (%) (Auto ) 26, Mean Corpuscular Hemoglobin 28, Mean Corpuscular Hemoglobin Concent 32, Mean Corpuscular Volume 90, Mean Platelet Volume 10.2, Monocytes # (Auto) 0.4, Monocytes (%) (Auto) 6, Neutrophils # (Auto) 4.5, Neutrophils (%) (Auto) 67, Platelet Count 158, Potassium Level 3.2L, Red Blood Count 3.00L, Red Cell Distribution Width 17.4H, Sodium Level 140, White Blood Count 6.8 Assessment/Plan Assessment/Plan Assess & Plan/Chief Complaint 1. Recurrent Partial Small Bowel Obstruction a. Small bowel follow-through done today shows no obstruction at this time. Continued IV nutrition advised by Dr. SHELBY. b. Clear liquid diet initiated today post removal of NG tuve; 2. Metastatic colon cancer with multiple small bowel and serosal metastases initially diagnosed with PET/CT scan done in June 2015 and confirmed at exploratory laparotomy. a. Status post end colostomy placement after episode of small bowel obstruction arising from recurrent metastatic colon cancer in June 2015 3. Acute on chronic multifactorial anemia 4. Abdominal pain related to number 1--improved; 5. Hypokalemia-Replace potassium and recheck; 6. Acute on chronic diarrhea-related to number 1; will check for C diff; 7. Multiple comorbidities including chronic back pain arising from discogenic disease, depression, hypothyroidism, remote history of substance and alcohol abuse. Diagnosis/Problems: Clinical Quality Measures DVT/VTE Risk/Contraindication: Risk Factor Score Per Nursin RFS Level Per Nursing on Admit: 4+=Very High Contraindications-Pharm: Other *list below* Other: Patient has multiple serosal and small bowel metastases and has had a drop in her hemoglobin as well as recent history of coffee-ground emesis. We will monitor without pharmacologic anticoagulation but we will continue SCDs at this time. JUN SANTACRUZ MD Apr 22, 2016 16:18
[2016-04-22] MEDS: KCL 10 MEQ TAB (MICRO K) PO SCH (17:56)
[2016-04-22] MEDS: LEVOTHYROXINE 75 MCG (LEVOTHROID) TABLET PO SCH (18:11)
[2016-04-22] MEDS: PARoxetine 20 MG (PAXIL) TAB PO SCH (18:11)
[2016-04-22] MEDS: HYDROcodone/APAP 10 MG/325 MG (LORTAB) TAB PO PRN (18:17)
[2016-04-22] MEDS: ZOLPIDEM 5 MG (AMBIEN) TAB PO SCH (21:17)
[2016-04-23] VITALS: BP 125/74
[2016-04-23] MEDS: NS IV 1000 ML 1,000 ML IV SCH ×3 (01:00→20:35)
[2016-04-23] MEDS: KCL 10 MEQ TAB (MICRO K) PO SCH ×3 (05:33→15:44)
[2016-04-23] MEDS: LEVOTHYROXINE 75 MCG (LEVOTHROID) TABLET PO SCH (05:33)
[2016-04-23 05:48] LABS: BASOPHILS % (AUTO) 0 % (0-10); EOSINOPHILS # (AUTO) 0.1 10^3/uL (0.0-0.3); EOSINOPHILS % (AUTO) 2 % (0-10); LYMPHOCYTES # (AUTO) 1.8 X 10^3 (1.0-4.0); LYMPHOCYTES % (AUTO) 38 % (12-44); MEAN CORPUSCULAR HEMOGLOBIN 29 PG (25-34); MEAN CORPUSCULAR HGB CONC 32 G/DL (32-36); MEAN CORPUSCULAR VOLUME 89 FL (80-99); MEAN PLATELET VOLUME 10.7 FL (7.4-10.4); MONOCYTES # (AUTO) 0.4 X 10^3 (0.0-1.0); MONOCYTES % (AUTO) 8 % (0-12); NEUTROPHILS # (AUTO) 2.5 X 10^3 (1.8-7.8); NEUTROPHILS % (AUTO) 53 % (42-75); PLATELET COUNT 148 10^3/uL (130-400); RED BLOOD COUNT 3.08 10^6/uL (4.35-5.85); RED CELL DISTRIBUTION WIDTH 17.4 % (10.0-14.5); WHITE BLOOD COUNT 4.8 10^3/uL (4.3-11.0)
[2016-04-23 06:08] LABS: ANION GAP 8 MMOL/L (5-14); BLOOD UREA NITROGEN 3 MG/DL (7-18); BUN/CREATININE RATIO 6; CALCIUM 8.1 MG/DL (8.5-10.1); CARBON DIOXIDE 22 MMOL/L (21-32); CHLORIDE 113 MMOL/L (98-107); CREATININE SERUM 0.54 MG/DL (0.60-1.30); GFR ESTIMATED > 60; GLUCOSE 68 MG/DL (70-105); POTASSIUM 3.7 MMOL/L (3.6-5.0); SODIUM 143 MMOL/L (135-145)
[2016-04-23] MEDS ORDERED: LEVOTHYROXINE 75 MCG (LEVOTHROID) TABLET PO SCH (06:30)
[2016-04-23 08:00] VITALS: BP 121/70
[2016-04-23] MEDS ORDERED: DIAZEPAM 5 MG (VALIUM) TABLET PO SCH (09:00)
[2016-04-23] MEDS ORDERED: PARoxetine 20 MG (PAXIL) TAB PO SCH (09:00)
[2016-04-23] MEDS: PANTOPRAZOLE 40 MG/10 ML (PROTONIX) VIAL IV SCH (09:57)
[2016-04-23] MEDS: PARoxetine 20 MG (PAXIL) TAB PO SCH (09:57)
--- NOTE | 2016-04-23 14:47 | Progress Note (SOAP) ---
Subjective Subjective/Events-last exam She reports abdominal pain today and has not been taking as much liquids today; Objective Exam Vital Signs Date Time Temp Pulse Resp B/P Pulse Ox O2 Delivery O2 Flow Rate FiO2 04/23/16 08:00 98.2 72 16 121/70 99 Room Air 04/23/16 00:00 96.6 73 20 125/74 95 Room Air 04/22/16 15:55 97.2 80 18 122/69 97 Room Air I & O 04/23/16 07:00 Intake Total 1800 ml Output Total 1450 ml Balance 350 ml Capillary Refill : Less Than 3 Seconds General Appearance: No Apparent Distress WD/WN Chronically ill HEENT: PERRL/EOMI Normal ENT Inspection Pharynx Normal Neck: Non Tender Supple Respiratory: Lungs Clear Normal Breath Sounds No Accessory Muscle Use No Respiratory Distress Cardiovascular: Regular Rate, Rhythm No Edema No Gallop No JVD Gastrointestinal: other (ileostomy bag with dark green liquid contents;) Neurologic/Psychiatric: Alert Oriented x3 No Motor/Sensory Deficits Normal 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 Norm as Tested Results Lab Laboratory Tests 04/22/16 17:50: Stool Occult Blood Immunoassay POSITIVEH 04/23/16 05:35: Anion Gap 8, BUN/Creatinine Ratio 6, Basophils # (Auto) 0.0, Basophils (%) (Auto ) 0, Blood Urea Nitrogen 3L, Calcium Level 8.1L, Carbon Dioxide Level 22, Chloride Level 113H, Creatinine 0.54L, Eosinophils # (Auto) 0.1, Eosinophils (% ) (Auto) 2, Estimat Glomerular Filtration Rate > 60, Glucose Level 68L, Hematocrit 27L, Hemoglobin 8.8L, Lymphocytes # (Auto) 1.8, Lymphocytes (%) (Auto ) 38, Mean Corpuscular Hemoglobin 29, Mean Corpuscular Hemoglobin Concent 32, Mean Corpuscular Volume 89, Mean Platelet Volume 10.7H, Monocytes # (Auto) 0.4, Monocytes (%) (Auto) 8, Neutrophils # (Auto) 2.5, Neutrophils (%) (Auto) 53, Platelet Count 148, Potassium Level 3.7, Red Blood Count 3.08L, Red Cell Distribution Width 17.4H, Sodium Level 143, White Blood Count 4.8 Microbiology 04/22/16 C. difficile [facility] Antigen & Toxins - Final, Complete Assessment/Plan Assessment/Plan Assess & Plan/Chief Complaint 1. Recurrent Partial Small Bowel Obstruction a. Small bowel follow-through done today shows no obstruction at this time. Continued IV nutrition advised by Dr. SHELBY. b. Clear liquid diet initiated today post removal of NG tuve; 2. Metastatic colon cancer with multiple small bowel and serosal metastases initially diagnosed with PET/CT scan done in June 2015 and confirmed at exploratory laparotomy. a. Status post end colostomy placement after episode of small bowel obstruction arising from recurrent metastatic colon cancer in June 2015 3. Acute on chronic multifactorial anemia 4. Abdominal pain related to number 1--improved; 5. Hypokalemia-monitor her potassium and replace as indicated; today potassium 3.7; 6. Acute on chronic diarrhea-related to number 1; C diff is negative; 7. Multiple comorbidities including chronic back pain arising from discogenic disease, depression, hypothyroidism, remote history of substance and alcohol abuse. Diagnosis/Problems: Clinical Quality Measures DVT/VTE Risk/Contraindication: Risk Factor Score Per Nursin RFS Level Per Nursing on Admit: 4+=Very High Contraindications-Pharm: Other *list below* Other: Patient has multiple serosal and small bowel metastases and has had a drop in her hemoglobin as well as recent history of coffee-ground emesis. We will monitor without pharmacologic anticoagulation but we will continue SCDs at this time. JUN SANTACRUZ MD Apr 23, 2016 14:47
[2016-04-23] MEDS: HYDROcodone/APAP 10 MG/325 MG (LORTAB) TAB PO PRN (15:39)
[2016-04-23 16:00] VITALS: BP 121/77
[2016-04-23] MEDS: HYDROmorphone (DILAUDID) 2 MG/ML VIAL IV PRN ×2 (17:15→22:25)
[2016-04-23] MEDS: ONDANSETRON 4 MG/2 ML (SDV) Z0FRAN IV PRN (17:19)
[2016-04-23] MEDS ORDERED: DIAZEPAM 5 MG (VALIUM) TABLET PO PRN (21:00)
[2016-04-23] MEDS: ZOLPIDEM 5 MG (AMBIEN) TAB PO SCH (22:25)
[2016-04-24] VITALS: BP 116/59
[2016-04-24] MEDS: NS IV 1000 ML 1,000 ML IV SCH ×4 (03:00→21:40)
[2016-04-24] MEDS: LEVOTHYROXINE 75 MCG (LEVOTHROID) TABLET PO SCH (05:28)
[2016-04-24] MEDS: KCL 10 MEQ TAB (MICRO K) PO SCH ×3 (05:28→17:26)
[2016-04-24 05:51] LABS: BASOPHILS % (AUTO) 1 % (0-10); EOSINOPHILS # (AUTO) 0.1 10^3/uL (0.0-0.3); EOSINOPHILS % (AUTO) 2 % (0-10); LYMPHOCYTES # (AUTO) 1.8 X 10^3 (1.0-4.0); LYMPHOCYTES % (AUTO) 44 % (12-44); MEAN CORPUSCULAR HEMOGLOBIN 28 PG (25-34); MEAN CORPUSCULAR HGB CONC 32 G/DL (32-36); MEAN CORPUSCULAR VOLUME 90 FL (80-99); MEAN PLATELET VOLUME 10.9 FL (7.4-10.4); MONOCYTES # (AUTO) 0.4 X 10^3 (0.0-1.0); MONOCYTES % (AUTO) 9 % (0-12); NEUTROPHILS # (AUTO) 1.8 X 10^3 (1.8-7.8); NEUTROPHILS % (AUTO) 45 % (42-75); PLATELET COUNT 144 10^3/uL (130-400); RED BLOOD COUNT 3.04 10^6/uL (4.35-5.85); RED CELL DISTRIBUTION WIDTH 17.9 % (10.0-14.5); WHITE BLOOD COUNT 4.1 10^3/uL (4.3-11.0)
[2016-04-24 06:08] LABS: ANION GAP 7 MMOL/L (5-14); BLOOD UREA NITROGEN < 2 MG/DL (7-18); BUN/CREATININE RATIO 4; CALCIUM 7.8 MG/DL (8.5-10.1); CARBON DIOXIDE 22 MMOL/L (21-32); CHLORIDE 114 MMOL/L (98-107); CREATININE SERUM 0.56 MG/DL (0.60-1.30); GFR ESTIMATED > 60; GLUCOSE 78 MG/DL (70-105); POTASSIUM 3.4 MMOL/L (3.6-5.0); SODIUM 143 MMOL/L (135-145)
[2016-04-24 08:00] VITALS: BP 135/69
[2016-04-24] MEDS: PANTOPRAZOLE 40 MG/10 ML (PROTONIX) VIAL IV SCH (08:37)
[2016-04-24] MEDS: HYDROmorphone (DILAUDID) 2 MG/ML VIAL IV PRN ×6 (08:39→20:46)
[2016-04-24] MEDS: PARoxetine 20 MG (PAXIL) TAB PO SCH (08:42)
[2016-04-24] MEDS: HYDROcodone/APAP 10 MG/325 MG (LORTAB) TAB PO PRN ×2 (08:51→17:26)
--- NOTE | 2016-04-24 09:40 | Progress Note (SOAP) ---
Subjective Subjective/Events-last exam Continues to complain of abdominal and back pain; Tolerating liquid diet; Objective Exam Vital Signs Date Time Temp Pulse Resp B/P Pulse Ox O2 Delivery O2 Flow Rate FiO2 04/24/16 08:00 98.0 70 18 135/69 96 Room Air 04/24/16 00:00 96.5 63 20 116/59 98 Room Air 04/23/16 16:00 98.4 74 20 121/77 99 Room Air I & O 04/24/16 07:00 Intake Total 2370 ml Output Total 3550 ml Balance -1180 ml Capillary Refill : Less Than 3 Seconds General Appearance: Chronically ill HEENT: PERRL/EOMI Neck: Full Range of Motion Respiratory: Chest Non Tender Lungs Clear Cardiovascular: Regular Rate, Rhythm Gastrointestinal: normal bowel sounds other (ileostomy in place with brown liquid stool in bag;) Results Lab Laboratory Tests 04/24/16 05:25 Laboratory Tests 04/24/16 05:25: Anion Gap 7, BUN/Creatinine Ratio 4, Basophils # (Auto) 0.0, Basophils (%) (Auto ) 1, Blood Urea Nitrogen < 2L, Calcium Level 7.8L, Carbon Dioxide Level 22, Chloride Level 114H, Creatinine 0.56L, Eosinophils # (Auto) 0.1, Eosinophils (% ) (Auto) 2, Estimat Glomerular Filtration Rate > 60, Glucose Level 78, Hematocrit 27L, Hemoglobin 8.6L, Lymphocytes # (Auto) 1.8, Lymphocytes (%) (Auto ) 44, Mean Corpuscular Hemoglobin 28, Mean Corpuscular Hemoglobin Concent 32, Mean Corpuscular Volume 90, Mean Platelet Volume 10.9H, Monocytes # (Auto) 0.4, Monocytes (%) (Auto) 9, Neutrophils # (Auto) 1.8, Neutrophils (%) (Auto) 45, Platelet Count 144, Potassium Level 3.4L, Red Blood Count 3.04L, Red Cell Distribution Width 17.9H, Sodium Level 143, White Blood Count 4.1L Microbiology 04/22/16 C. difficile GDH Antigen & Toxins - Final, Complete Assessment/Plan Assessment/Plan Assess & Plan/Chief Complaint 1. Recurrent Partial Small Bowel Obstruction a. Small bowel follow-through done today shows no obstruction at this time. Continued IV nutrition advised by Dr. SHELBY. b. Clear liquid diet initiated today post removal of NG tuve; 2. Metastatic colon cancer with multiple small bowel and serosal metastases initially diagnosed with PET/CT scan done in June 2015 and confirmed at exploratory laparotomy. a. Status post end colostomy placement after episode of small bowel obstruction arising from recurrent metastatic colon cancer in June 2015 3. Acute on chronic multifactorial anemia 4. Abdominal pain related to number 1--improved; 5. Hypokalemia-monitor her potassium and replace as indicated; today's potassium 3.4; 6. Acute on chronic diarrhea-related to number 1; C diff is negative; 7. Multiple comorbidities including chronic back pain arising from discogenic disease, depression, hypothyroidism, remote history of substance and alcohol abuse. Diagnosis/Problems: Clinical Quality Measures DVT/VTE Risk/Contraindication: Risk Factor Score Per Nursin RFS Level Per Nursing on Admit: 4+=Very High Contraindications-Pharm: Other *list below* Other: Patient has multiple serosal and small bowel metastases and has had a drop in her hemoglobin as well as recent history of coffee-ground emesis. We will monitor without pharmacologic anticoagulation but we will continue SCDs at this time. JUN SANTACRUZ MD Apr 24, 2016 09:40
[2016-04-24] MEDS: POTASSIUM CL 10MEQ/50ML IVPB 50 ML IV SCH ×4 (10:22→13:48)
[2016-04-24] MEDS: ONDANSETRON 4 MG/2 ML (SDV) Z0FRAN IV PRN (10:44)
[2016-04-24] MEDS: LORazepam INJ 2 MG/ML (ATIVAN) VIAL IV PRN (11:08)
[2016-04-24 16:00] VITALS: BP 123/71
[2016-04-24] MEDS: ZOLPIDEM 5 MG (AMBIEN) TAB PO SCH (20:46)
[2016-04-25] VITALS: BP 127/66
[2016-04-25] MEDS: LEVOTHYROXINE 75 MCG (LEVOTHROID) TABLET PO SCH (05:35)
[2016-04-25] MEDS: KCL 10 MEQ TAB (MICRO K) PO SCH ×2 (05:35→12:05)
[2016-04-25] MEDS: NS IV 1000 ML 1,000 ML IV SCH (05:40)
[2016-04-25 06:01] LABS: BASOPHILS % (AUTO) 1 % (0-10); EOSINOPHILS # (AUTO) 0.1 10^3/uL (0.0-0.3); EOSINOPHILS % (AUTO) 2 % (0-10); LYMPHOCYTES # (AUTO) 1.7 X 10^3 (1.0-4.0); LYMPHOCYTES % (AUTO) 44 % (12-44); MEAN CORPUSCULAR HEMOGLOBIN 29 PG (25-34); MEAN CORPUSCULAR HGB CONC 32 G/DL (32-36); MEAN CORPUSCULAR VOLUME 90 FL (80-99); MEAN PLATELET VOLUME 11.2 FL (7.4-10.4); MONOCYTES # (AUTO) 0.3 X 10^3 (0.0-1.0); MONOCYTES % (AUTO) 8 % (0-12); NEUTROPHILS # (AUTO) 1.7 X 10^3 (1.8-7.8); NEUTROPHILS % (AUTO) 45 % (42-75); PLATELET COUNT 155 10^3/uL (130-400); RED BLOOD COUNT 3.04 10^6/uL (4.35-5.85); RED CELL DISTRIBUTION WIDTH 17.7 % (10.0-14.5); WHITE BLOOD COUNT 3.8 10^3/uL (4.3-11.0)
[2016-04-25 06:32] LABS: ANION GAP 9 MMOL/L (5-14); BLOOD UREA NITROGEN < 2 MG/DL (7-18); BUN/CREATININE RATIO 4; CALCIUM 7.8 MG/DL (8.5-10.1); CARBON DIOXIDE 20 MMOL/L (21-32); CHLORIDE 110 MMOL/L (98-107); CREATININE SERUM 0.53 MG/DL (0.60-1.30); GFR ESTIMATED > 60; GLUCOSE 68 MG/DL (70-105); MAGNESIUM 1.5 MG/DL (1.8-2.4); POTASSIUM 3.4 MMOL/L (3.6-5.0); SODIUM 139 MMOL/L (135-145)
[2016-04-25 08:18] VITALS: BP 108/59
[2016-04-25] MEDS: PARoxetine 20 MG (PAXIL) TAB PO SCH (08:54)
[2016-04-25] MEDS: PANTOPRAZOLE 40 MG/10 ML (PROTONIX) VIAL IV SCH (08:54)
[2016-04-25] MEDS ORDERED: POTA10TA6 PO (14:37)
[2016-04-25] MEDS ORDERED: ONDA8TAB13 PO (14:37)
[2016-04-25] MEDS ORDERED: Zolpidem Tartrate PO (14:37)
[2016-04-25 14:50] VITALS: BP 108/59
--- NOTE | 2016-04-25 17:45 | Discharge Summary ---
Diagnosis/Chief Complaint Date of Admission Apr 19, 2016 at 17:22 Date of Discharge Apr 25, 2016 at 14:59 Discharge Date: Apr 25, 2016 Admission Diagnosis Admission Diagnosis 1. Recurrent Partial Small Bowel Obstruction 2. Metastatic colon cancer with multiple small bowel and serosal metastases initially diagnosed with PET/CT scan done in June 2015 and confirmed at exploratory laparotomy. a. Status post end colostomy placement after episode of small bowel obstruction arising from recurrent metastatic colon cancer in June 2015 3. Acute on chronic multifactorial anemia 4. Abdominal pain related to number 1 5. Chronic back pain arising from discogenic disease 6. Multiple comorbidities including depression, hypothyroidism, remote history of substance and alcohol abuse. Discharge Diagnosis 1. Recurrent Partial Small Bowel Obstruction a. Small bowel follow-through done today shows no obstruction at this time. Continued IV nutrition advised by Dr. SHELBY. b. Clear liquid diet initiated 04/22/16 post removal of NG tube; c. Patient has been tolerating liquid diet fairly well although she is not taking in a lot; 2. Metastatic colon cancer with multiple small bowel and serosal metastases initially diagnosed with PET/CT scan done in June 2015 and confirmed at exploratory laparotomy. a. Status post end colostomy placement after episode of small bowel obstruction arising from recurrent metastatic colon cancer in June 2015 3. Acute on chronic multifactorial anemia 4. Abdominal pain related to number 1--improved; 5. Hypokalemia and hypomagnessemia -monitor both potassium and magnesium and replace with oral potassium and magnesium as tolerated; Recheck as outpatient. 6. Acute on chronic diarrhea-related to number 1; C diff is negative; 7. Multiple comorbidities including chronic back pain arising from discogenic disease, depression, hypothyroidism, remote history of substance and alcohol abuse. Reason Hospital Visit This is a 56-year-old patient with history of metastatic colon cancer who is well known to me that has been admitted with complaints of recurrent abdominal pain, nausea and vomiting. Patient was recently discharged on 04/18/16 after being admitted on 04/12/17 with partial small bowel obstruction which was conservatively managed. Repeat abdominal CAT scan done in the emergency room again shows dilated small bowel loops but findings are not as severe as were on the scan done on 04/12/16. Patient describes coffee ground emesis associated with her previous admission but not with the current bout of abdominal pain. Past History is significant for: 1. 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 a. Status post 6 cycles of FOLFOX plus Vectibix initiated 09/06/14 through 12/22/15, FOLFOX was discontinued because of oxaliplatin reaction. b. Status post 6 cycles of Vectibix plus FOLFIRI initiated 01/19/16, last cycle given on 03/30/16. 2. Hypothyroidism 3. 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 5. Remote history of substance abuse and excessive alcohol use Discharge Summary Hospital Course Hospital Course Her partial small bowel obstruction was managed conservatively with NG tube placement and bowel rest. Patient had removal of the NG tube after the small bowel follow-through showed that the full obstruction was not present. She tolerated for liquid diet improvement in abdominal pain and was stable for discharge on 04/25/15. She will continue on liquid diet at home and will slowly advance her diet over 2 weeks not days as she did before. I will see her in clinic in one week and we will recheck her potassium and magnesium. She will also follow up with her local PMD. Labs Laboratory Tests 04/22/16 17:50: Stool Occult Blood Immunoassay POSITIVEH 04/23/16 05:35: Blood Urea Nitrogen 3L, Calcium Level 8.1L, Chloride Level 113H, Creatinine 0.54L, Glucose Level 68L, Hematocrit 27L, Hemoglobin 8.8L, Mean Platelet Volume 10.7H, Red Blood Count 3.08L, Red Cell Distribution Width 17.4H 04/24/16 05:25: Blood Urea Nitrogen < 2L, Calcium Level 7.8L, Chloride Level 114H, Creatinine 0.56L, Hematocrit 27L, Hemoglobin 8.6L, Mean Platelet Volume 10.9H, Red Blood Count 3.04L, Red Cell Distribution Width 17.9H, Magnesium Level 1.6L, Potassium Level 3.4L, White Blood Count 4.1L 04/25/16 05:40: Blood Urea Nitrogen < 2L, Calcium Level 7.8L, Chloride Level 110H, Creatinine 0.53L, Glucose Level 68L, Hematocrit 27L, Hemoglobin 8.7L, Mean Platelet Volume 11.2H, Red Blood Count 3.04L, Red Cell Distribution Width 17.7H, Magnesium Level 1.5L, Potassium Level 3.4L, White Blood Count 3.8L, Carbon Dioxide Level 20L, Neutrophils # (Auto) 1.7L Procedures None. Consultations General surgery Dr. SHELBY saw patient has followed her during this admission. Discharge Physical Examination Allergies: Coded Allergies: oxaliplatin (Verified Allergy, Severe, 01/07/16) Vitals & I&Os Vital Signs Date Time Temp Pulse Resp B/P Pulse Ox O2 Delivery O2 Flow Rate FiO2 04/25/16 14:50 77 18 108/59 95 Room Air 04/25/16 08:18 98.6 Discussion & Recommendations As discussed above in hospital course. Discharge Home Medications Reviewed and agree with Discharge Medication list on patient's Discharge Instruction sheet Instructions to Patient/Family Please see electonic discharge instructions given to patient. Clinical Quality Measures DVT/VTE Risk/Contraindication: Risk Factor Score Per Nursin RFS Level Per Nursing on Admit: 4+=Very High Contraindications-Pharm: Other *list below* Other: Patient has multiple serosal and small bowel metastases and has had a drop in her hemoglobin as well as recent history of coffee-ground emesis. We will monitor without pharmacologic anticoagulation but we will continue SCDs at this time. JUN SANTACRUZ MD Apr 25, 2016 17:45
== END 2016-04-25 14:59 | disposition home or self-care (01) | DRG 327 ==
LOC: EDUNIT# 14:33 → ER 14:34 → 4TH 17:22
PROVIDERS: ADMIT Internal Medicine Hematology & Oncology; ATTEND Internal Medicine Hematology & Oncology
PROC: 0D9470Z Drainage of Esophagogastric Junction with Drainage Device, Via Natural or Artificial Opening (ICD-10-PCS; principal; 2016-04-19)
DX: K56.69 Other intestinal obstruction (principal); C78.4 Secondary malignant neoplasm of small intestine; J44.9 Chronic obstructive pulmonary disease, unspecified; J45.909 Unspecified asthma, uncomplicated; E03.9 Hypothyroidism, unspecified; D64.9 Anemia, unspecified; F41.9 Anxiety disorder, unspecified; F32.9 Major depressive disorder, single episode, unspecified; K21.9 Gastro-esophageal reflux disease without esophagitis; M54.9 Dorsalgia, unspecified; E87.6 Hypokalemia; Z93.3 Colostomy status; Z85.038 Personal history of other malignant neoplasm of large intestine; Z87.891 Personal history of nicotine dependence; Z86.19 Personal history of other infectious and parasitic diseases; Z90.49 Acquired absence of other specified parts of digestive tract; Z87.898 Personal history of other specified conditions
CPT/HCPCS: 36415; 71010; 74000; 74176; 74250; 80048; 80053; 81000; 82274; 83605; 83735; 85025; 86141; 86850; 86900; 86901; 87324; 87449; 96361; 96374; 96375; 96376

== ENCOUNTER 2016-04-26 16:37 | Inpatient (IN) | payer MEDICARE, MEDICAID ==
[~2016-04-26] VITALS: Ht 160 cm; Wt 62.6 kg
[~2016-04-26 16:37] MED LIST changes: +POTA10TA6 PO; +Zolpidem Tartrate PO
--- OUTSIDE RECORDS SUMMARY | 2016-04-26 16:43 | XMS REPORT | Continuity of Care Document ---
Author Author [facility] Organization [facility] Address Unknown Phone Unavailable Care Team Providers Care Grant Manager Name Role Phone NohemylorieRogelio PCP [phone] Source Comments Some departments are not documenting in the electronic medical record. If you do not see the information that you expected, contact Release of Information in the Health Information Management department at [phone] for further assistance in locating additional records.[facility] Active Allergies and Adverse [...] at 60% doses 09/25/2015 first visit at [facility], discussed use of Lomotil for diarrhea and [...]
[2016-04-26] MEDS ORDERED: NS IV 1000 ML 1,000 ML IV STA (17:08)
[2016-04-26] MEDS ORDERED: HYDROmorphone (DILAUDID) 2 MG/ML VIAL IVP STA ×4 (17:08→18:11)
[2016-04-26] MEDS ORDERED: ONDANSETRON 4 MG/2 ML (SDV) Z0FRAN IVP ONE ×2 (17:15→17:30)
[2016-04-26] MEDS ORDERED: HYOSCYAMINE 0.125 MG (LEVSIN) TAB SL ONE (17:30)
--- NOTE | 2016-04-26 17:44 | ED Abdominal Pain ---
General Chief Complaint: Abdominal/GI Problems Stated Complaint: ABD PAIN,BACK PAIN,NAUSEA Source of Information: Patient Exam Limitations: No Limitations History of Present Illness Time Seen By Provider: 17:00 Initial Comments Here with complaint of intractable abdominal pain. 2 previous hospitalizations for the same. Patient has colon cancer and has intermittent at least partial small bowel obstruction. Discharged in a few days ago and was doing okay but has had intractable pain with nausea today. Only small amount of stool today. All symptoms similar to previous 2 admissions. Denies fever or chills. Comes in stating she would like surgery now please. Timing/Duration: 12-24 Hours Severity/Quality: Moderate, Severe Location: Generalized Abdomen Activities at Onset: None Modifying Factors: Improves With Analgesics, Worsens With Eating, Worsens With Movement Associated Symptoms: No Back Pain, No Chest Pain, No Fever/Chills, Nausea/ VomitingNo Shortness of Air, No Swelling/Mass in Abdomen, No Weakness Allergies and Home Medications Allergies Coded Allergies: oxaliplatin (Verified Allergy, Severe, 01/07/16) Home Medications 5 MG TAB 5 MG PO HS Prescribed by: JUN SANTACRUZ on 04/25/16 1437 Baclofen 10 Mg Tablet 5-10 MG PO TID PRN PRN MUSCLE SPASMS (Reported) Diazepam 10 Mg Tablet 10 MG PO HS (Reported) Hydrocodone/Acetaminophen 1 Each Tablet 1 TAB PO Q4H PRN PRN PAIN (Reported) Levothyroxine Sodium 75 Mcg Tablet 75 MCG PO DAILY (Reported) Loperamide HCl 2 Mg Capsule 2 MG PO UD PRN PRN LOOSE STOOLS (Reported) Ondansetron 8 Mg Tab.rapdis #60 8 MG PO Q8H PRN PRN NAUSEA Prescribed by: JUN SANTACRUZ on 04/25/16 143 Paroxetine HCl 20 Mg Tablet 20 MG PO DAILY (Reported) Potassium Chloride 10 Meq Tablet.er 30Days 10 MEQ PO WM Prescribed by: JUN SANTACRUZ on 04/25/16 1437 Review of Systems Constitutional: see HPINo chills, No fever EENTM: No Symptoms Reported Respiratory: No Symptoms Reported Cardiovascular: No Symptoms Reported Gastrointestinal: See HPI Abdominal Pain NauseaDenies Vomiting Genitourinary: No Symptoms Reported Musculoskeletal: no symptoms reported Skin: no symptoms reported Psychiatric/Neurological: Anxiety All Other Systems Reviewed Negative Unless Noted: Yes Past Wckuwmb-Acfoki-Jhxsas Hx Patient Social History Alcohol Use: Denies Use Recreational Drug Use: No (20 YRS AGO HX SUICIDE ATTEMPT) Smoking Status: Former Smoker Former Smoker/When Quit: Apr 17, 2010 Recent Foreign Travel: No Contact w/Someone Who Travel: No Recent Hopitalizations: Yes Physical Abuse Screen: No Sexual Abuse: No Immunizations Up To Date Tetanus Booster (TDap): Unknown Date of Pneumonia Vaccine: Jul 19, 2011 Date of Influenza Vaccine: Jan 16, 2016 Seasonal Allergies Seasonal Allergies: No Surgeries HX Surgeries: Yes (HERNIA, CYST FROM NECK, OVARIAN CYST, COLON RESECTION) Surgeries: Appendectomy, Bowel Surgery, Gallbladder, Hysterectomy Respiratory Hx Respiratory Disorders: Yes (MILD COPD, ASTHMA A CHILD) Respiratory Disorders: COPD Cardiovascular Hx Cardiac Disorders: No Neurological Hx Neurological Disorders: No Reproductive System Hx Reproductive Disorders: No Sexually Transmitted Disease: No HIV/AIDS: No Female Reproductive Disorders: Denies Genitourinary Hx Genitourinary Disorders: No Gastrointestinal Hx Gastrointestinal Disorders: Yes (HX COLON CANCER) Gastrointestinal Disorders: Hepatitis Musculoskeletal Hx Musculoskeletal Disorders: Yes Musculoskeletal Disorders: Arthritis, Chronic Back Pain Endocrine Hx Endocrine Disorders: Yes Endocrine Disorders: Hypothyroidsim HEENT HX ENT Disorders: No (GLASSES, FULL SET OF DENTURES) Hearing Impairment: Denies Cancer Hx Cancer: Yes Cancer: Colon Psychosocial Hx Psychiatric Problems: Yes Behavioral Health Disorders: Anxiety, Depression Integumentary HX Skin/Integumentary Disorder: No Skin/Integumentary Disorders: Pruritis Blood Transfusions Hx Blood Disorders: Yes (ANEMIA) Adverse Reaction to a Blood Tr: No Reviewed Nursing Assessment Reviewed/Agree w Nursing PMH: Yes Family Medical History Significant Family History: Heart Disease Family Medial History: Arthritis G8 BROTHER G8 SISTER FH: breast cancer 19 MOTHER Myocardial infarction 19 FATHER Physical Exam Vital Signs Capillary Refill : General Appearance: WD/WN moderate distress (abdominal pain) HEENT: PERRL/EOMI pharynx normal Neck: full range of motion supple Respiratory: lungs clear normal breath sounds Cardiovascular: regular rate, rhythm no murmur Gastrointestinal: softNo guarding, No rebound, tenderness (diffusely) Extremities: non-tender normal inspection Back: normal inspection no CVA tenderness no vertebral tenderness Neurologic/Psychiatric: alert oriented x 3 Progress/Results/Core Measures Results/Orders Lab Results Laboratory Tests Test 04/26/16 17:46 Range/Units Alanine Aminotransferase (ALT/SGPT) 10 0-55 U/L Albumin 3.5 3.2-4.5 G/DL Alkaline Phosphatase 60 40-136 U/L Anion Gap 9 5-14 MMOL/L Aspartate Amino Transf (AST/SGOT) 23 5-34 U/L BUN/Creatinine Ratio 3 Basophils # (Auto) 0.0 0.0-0.1 10^3/uL Basophils (%) (Auto) 1 0-10 % Blood Urea Nitrogen 2 L 7-18 MG/DL C-Reactive Protein High Sensitivity 0.33 0.00-0.50 MG/DL Calcium Level 8.2 L 8.5-10.1 MG/DL Carbon Dioxide Level 19 L 21-32 MMOL/L Chloride Level 109 H 98-107 MMOL/L Creatinine 0.62 0.60-1.30 MG/DL Eosinophils # (Auto) 0.0 0.0-0.3 10^3/uL Eosinophils (%) (Auto) 0 0-10 % Estimat Glomerular Filtration Rate > 60 Glucose Level 87 70-105 MG/DL Hematocrit 27 L 35-52 % Hemoglobin 8.7 L 11.5-16.0 G/DL Lactic Acid Level 1.0 0.5-2.0 MMOL/L Lymphocytes # (Auto) 0.7 L 1.0-4.0 X 10^3 Lymphocytes (%) (Auto) 21 12-44 % Mean Corpuscular Hemoglobin 28 25-34 PG Mean Corpuscular Hemoglobin Concent 32 32-36 G/DL Mean Corpuscular Volume 89 80-99 FL Mean Platelet Volume 11.4 H 7.4-10.4 FL Monocytes # (Auto) 0.1 0.0-1.0 X 10^3 Monocytes (%) (Auto) 4 0-12 % Neutrophils # (Auto) 2.6 1.8-7.8 X 10^3 Neutrophils (%) (Auto) 74 42-75 % Platelet Count 155 130-400 10^3/uL Potassium Level 3.8 3.6-5.0 MMOL/L Red Blood Count 3.08 L 4.35-5.85 10^6/uL Red Cell Distribution Width 17.6 H 10.0-14.5 % Sodium Level 137 135-145 MMOL/L Total Bilirubin 0.6 0.1-1.0 MG/DL Total Protein 6.3 L 6.4-8.2 G/DL White Blood Count 3.5 L 4.3-11.0 10^3/uL My Orders Orders-YOLY BRAUN MD Cbc With Automated Diff (04/26/16 17:08) Comprehensive Metabolic Panel (04/26/16 17:08) Hs C Reactive Protein (04/26/16 17:08) Lactic Acid Analyzer (04/26/16 17:08) Blood Culture (04/26/16 17:08) Hydromorphone Injection (Dilaudid Inject (04/26/16 17:08) Ondansetron Injection (Zofran Injectio (04/26/16 17:15) Ns Iv 1000 Ml (Sodium Chloride 0.9%) (04/26/16 17:08) Saline Lock/Iv-Start (04/26/16 17:08) Hydromorphone Injection (Dilaudid Inject (04/26/16 17:27) Ondansetron Injection (Zofran Injectio (04/26/16 17:30) Hyoscyamine Sl Tablet (Levsin Sl Tablet) (04/26/16 17:30) Ng Tube Insert & Assessment (04/26/16 17:43) Hydromorphone Injection (Dilaudid Inject (04/26/16 17:43) Benzocaine Extension Tube (Hurricaine Ex (04/26/16 17:45) Medications Given in ED Current Medications Medications Dose Ordered Sig/Juan Route Start Time Stop Time Status Last Admin Dose Admin Benzocaine 1 ea ONCE ONCE XX 04/26/16 17:45 04/26/16 17:46 DC 04/26/16 18:06 1 EA Hyoscyamine Sulfate 0.125 mg ONCE ONCE SL 04/26/16 17:30 04/26/16 17:31 DC 04/26/16 17:35 0.125 MG Ondansetron HCl 4 mg ONCE ONCE IVP 04/26/16 17:15 04/26/16 17:16 DC 04/26/16 17:22 4 MG Ondansetron HCl 4 mg ONCE ONCE IVP 04/26/16 17:30 04/26/16 17:31 DC 04/26/16 17:35 4 MG Progress Note : Progress Note Seen and evaluated. IV, labs, normal saline 1 L bolus, Dilaudid 1 mg IV. This was repeated 2 and patient still had pain. Also received Zofran 8 mg IV and Levsin 0.125 mg by mouth. This did not resolve the pain. NG tube placement indicated. Patient has known history of intermittent small bowel obstruction and colon cancer. 14 English NG tube placed by me with nursing assistance after use of Hurricaine spray. Patient tolerated procedure very well. After procedure, had persistent pain. Dilaudid 2 mg IV initiated. I did discuss the case with Dr. Santacruz at 1731. She accepts patient for admission although patient left AMA on last visit. We will reconsult Dr. Monaco in the morning as patient is requesting surgery now due to recurrent and persistent pain. Question of adhesions as patient has apparently nonobstructed small bowel follow-through on last visit. Patient will discuss with surgeon tomorrow. Dr. fernández will discuss with surgery tomorrow as well. Admit, inpatient status. Patient and family agree with plan. Diagnostic Imaging Diagonstic Imaging: Xray Plain Films/CT/US/NM/MRI: chest, abdomen Comments NG tube in good position. [place], [place] NAME: MADHAVI RENEE [facility] REC#: [id number] PT STATUS: ADM IN : 1960 PHYSICIAN: YOLY BRAUN MD ADMIT DATE: 04/26/16 Draft Date of Exam:04/26/16 CHEST 1 VIEW, AP/PA ONLY EXAMINATION: Portable chest. INDICATION: NG tube placement. COMPARISON: Comparison made with a prior study from April 20, 2016. FINDINGS: An enteric tube is in place and extends to the mid body of the stomach. A left subclavian line is unchanged. Lungs appear clear. There is no evidence of an effusion. There is no pneumothorax. Heart size and mediastinal contours appear appropriate. Pulmonary vascularity appears within normal limits. IMPRESSION: 1. Enteric tube extends to the mid body of the stomach. 2. No radiographic evidence of an acute cardiopulmonary process. Dictated on workstation # [id number] Dict: 04/26/161820 Trans: 04/26/16 [id number] Interpreted by: KAYE CHADWICK MD Electronically signed by: Departure Communication Time/Spoke to Admitting Phy: 17:31 Impression Impression: Primary Impression: metastatic colon cancer with small bowel obstruction Additional Impression: Intractable generalized abdominal pain Disposition: ADMITTED INPATIENT Condition: Stable Decision to Admit Reason: Admit from ER (General) Decision to Admit/Date: Apr 26, 2016 Time/Decision to Admit Time: 18:18 Departure-Patient Inst. Referrals: NO,LOCAL PHYSICIAN (PCP/Family) Primary Care Physician YOLY BRAUN MD Apr 26, 2016 17:44
[2016-04-26] MEDS ORDERED: HURRICAINE EXT TUBE (BENZOCAINE) XX ONE (17:45)
[2016-04-26 17:53] LABS: BASOPHILS % (AUTO) 1 % (0-10); EOSINOPHILS % (AUTO) 0 % (0-10); LYMPHOCYTES # (AUTO) 0.7 X 10^3 (1.0-4.0); LYMPHOCYTES % (AUTO) 21 % (12-44); MEAN CORPUSCULAR HEMOGLOBIN 28 PG (25-34); MEAN CORPUSCULAR HGB CONC 32 G/DL (32-36); MEAN CORPUSCULAR VOLUME 89 FL (80-99); MEAN PLATELET VOLUME 11.4 FL (7.4-10.4); MONOCYTES # (AUTO) 0.1 X 10^3 (0.0-1.0); MONOCYTES % (AUTO) 4 % (0-12); NEUTROPHILS # (AUTO) 2.6 X 10^3 (1.8-7.8); NEUTROPHILS % (AUTO) 74 % (42-75); PLATELET COUNT 155 10^3/uL (130-400); RED BLOOD COUNT 3.08 10^6/uL (4.35-5.85); RED CELL DISTRIBUTION WIDTH 17.6 % (10.0-14.5); WHITE BLOOD COUNT 3.5 10^3/uL (4.3-11.0)
[2016-04-26 18:14] LABS: ALANINE AMINOTRANSFERASE 10 U/L (0-55); ALBUMIN 3.5 G/DL (3.2-4.5); ANION GAP 9 MMOL/L (5-14); ASPARTATE AMINO TRANSFERASE 23 U/L (5-34); BILIRUBIN,TOTAL 0.6 MG/DL (0.1-1.0); BLOOD UREA NITROGEN 2 MG/DL (7-18); BUN/CREATININE RATIO 3; CALCIUM 8.2 MG/DL (8.5-10.1); CARBON DIOXIDE 19 MMOL/L (21-32); CHLORIDE 109 MMOL/L (98-107); CREATININE SERUM 0.62 MG/DL (0.60-1.30); GFR ESTIMATED > 60; GLUCOSE 87 MG/DL (70-105); POTASSIUM 3.8 MMOL/L (3.6-5.0); SODIUM 137 MMOL/L (135-145); TOTAL PROTEIN 6.3 G/DL (6.4-8.2); hs C REACTIVE PROTEIN 0.33 MG/DL (0.00-0.50)
--- NOTE | 2016-04-26 18:26 | Diagnostic Imaging Report ---
EXAMINATION: Portable chest. INDICATION: NG tube placement. COMPARISON: Comparison made with a prior study from April 20, 2016. FINDINGS: An enteric tube is in place and extends to the mid body of the stomach. A left subclavian line is unchanged. Lungs appear clear. There is no evidence of an effusion. There is no pneumothorax. Heart size and mediastinal contours appear appropriate. Pulmonary vascularity appears within normal limits. IMPRESSION: 1. Enteric tube extends to the mid body of the stomach. 2. No radiographic evidence of an acute cardiopulmonary process. Dictated by: Dictated on workstation # [id number]
[2016-04-26] MEDS ORDERED: HYDROmorphone (DILAUDID) 2 MG/ML VIAL IM STA (18:56)
[2016-04-26] MEDS: CATHETER FLUSH 10 ML SYR IV PRN (19:53)
[2016-04-26] MEDS: NS IV 1000 ML 1,000 ML IV SCH (19:53)
[2016-04-26 20:00] VITALS: BP 130/82
[2016-04-26] MEDS: ONDANSETRON 4 MG/2 ML (SDV) Z0FRAN IV PRN (21:10)
[2016-04-26] MEDS: HYDROmorphone (DILAUDID) 2 MG/ML VIAL IV PRN ×2 (21:10→23:37)
[2016-04-27 00:10] VITALS: BP 114/72
[2016-04-27 03:00] VITALS: BP 120/75
[2016-04-27] MEDS: ONDANSETRON 4 MG/2 ML (SDV) Z0FRAN IV PRN ×4 (03:03→20:00)
[2016-04-27] MEDS: HYDROmorphone (DILAUDID) 2 MG/ML VIAL IV PRN ×6 (03:03→20:00)
[2016-04-27] MEDS: CATHETER FLUSH 10 ML SYR IV PRN (05:57)
[2016-04-27] MEDS: NS IV 1000 ML 1,000 ML IV SCH ×2 (05:57→15:58)
[2016-04-27 06:00] LABS: BASOPHILS % (AUTO) 1 % (0-10); EOSINOPHILS % (AUTO) 0 % (0-10); LYMPHOCYTES # (AUTO) 2.1 X 10^3 (1.0-4.0); LYMPHOCYTES % (AUTO) 46 % (12-44); MEAN CORPUSCULAR HEMOGLOBIN 29 PG (25-34); MEAN CORPUSCULAR HGB CONC 32 G/DL (32-36); MEAN CORPUSCULAR VOLUME 89 FL (80-99); MEAN PLATELET VOLUME 11.5 FL (7.4-10.4); MONOCYTES # (AUTO) 0.4 X 10^3 (0.0-1.0); MONOCYTES % (AUTO) 9 % (0-12); NEUTROPHILS # (AUTO) 1.9 X 10^3 (1.8-7.8); NEUTROPHILS % (AUTO) 43 % (42-75); PLATELET COUNT 180 10^3/uL (130-400); RED BLOOD COUNT 3.12 10^6/uL (4.35-5.85); RED CELL DISTRIBUTION WIDTH 17.7 % (10.0-14.5); WHITE BLOOD COUNT 4.5 10^3/uL (4.3-11.0)
[2016-04-27 06:24] LABS: ALANINE AMINOTRANSFERASE 8 U/L (0-55); ANION GAP 8 MMOL/L (5-14); ASPARTATE AMINO TRANSFERASE 14 U/L (5-34); BILIRUBIN,TOTAL 0.4 MG/DL (0.1-1.0); BLOOD UREA NITROGEN 3 MG/DL (7-18); BUN/CREATININE RATIO 5; CARBON DIOXIDE 22 MMOL/L (21-32); CHLORIDE 110 MMOL/L (98-107); CREATININE SERUM 0.56 MG/DL (0.60-1.30); GFR ESTIMATED > 60; GLUCOSE 74 MG/DL (70-105); POTASSIUM 3.2 MMOL/L (3.6-5.0); SODIUM 140 MMOL/L (135-145); TOTAL PROTEIN 5.4 G/DL (6.4-8.2)
[2016-04-27 08:00] VITALS: BP 102/65
[2016-04-27] MEDS ORDERED: DIPH1TAB PO (09:27)
[2016-04-27] MEDS ORDERED: FENT1PAT10 TD (09:27)
[2016-04-27] MEDS ORDERED: ONDA8TAB6 PO (09:27)
[2016-04-27] MEDS ORDERED: ZOLP10TA5 PO (09:27)
[2016-04-27] MEDS ORDERED: POTA10TA10 PO (09:27)
[2016-04-27] MEDS ORDERED: DIAZ10TA PO (09:27)
[2016-04-27] MEDS ORDERED: TPN IV SCH (11:15)
--- NOTE | 2016-04-27 11:47 | CONSULTATION REPORT ---
DATE OF ADMISSION: 04/26/2016 DATE OF CONSULTATION: 04/27/2016 ATTENDING PRIMARY CARE PHYSICIAN: Dr. Katz in [place]. ADMITTING PHYSICIAN: Dr. Monica Lopez. Ms. Maryellen Stuart is a 56-year-old female known to us. She has had a few previous admissions over the past few weeks. She has a history of what appears to be sigmoid colonic carcinoma diagnosed in 2011 and underwent open colon resection as well as primary anastomosis. She also received chemotherapy after surgery with a T3 M0 type of tumor. 19 lymph nodes were identified on the initial surgery all negative for malignancy. She underwent chemotherapy with FOLFOX, however discontinued Oxaliplatin secondary to prolonged myelosuppression. She was doing well however developed crampy abdominal pain and was found to have recurrent tumor by exploratory laparotomy on 07/05/2015 and was found to have multiple small bowel serosal metastases which was also confirmed on PET CT scan. She then underwent Vectibix plus FOLFIRI which was started on 01/19/2016 and was ongoing. She was initially admitted on 04/12/2016 for crampy abdominal pain and abdominal distention. A CT scan was performed, which did show dilated loops of small bowel near the terminal ileum. With conservative management, she was able to do better and able to have colostomy output and tolerate liquids. She is readmitted on 04/19/16 for similar type of symptoms and on that admission she underwent a small bowel follow-through, which did show transit of contrast throughout the entire small bowel and into the colon with 2.5 hours. She was again started on clear liquids which she was able to tolerate. She was again admitted at this time for crampy abdominal pain. She did not report any episodes of nausea or vomiting this time around. Upon examination her abdomen is soft and the colostomy is still intact with stool within the colon. PAST MEDICAL HISTORY: 1. Metastatic colon cancer. 2. Gastroesophageal reflux disease. 3. Hypothyroid. 4. Depression. 5. History of chronic hepatitis C. PAST SURGERY: 1. Laparoscopic cholecystectomy. 2. Hysterectomy and left salpingo-oophorectomy. 3. Ventral abdominal incisional hernia repair. 4. Open rectosigmoid low anterior section, 12. 5. Exploratory laparotomy and end colostomy 08/2015. 6. Tonsillectomy. ALLERGIES: No known drug allergies. MEDICATIONS: 1. Diazepam 10 mg q.i.d. p.r.n. 2. Fentanyl patch 100 mcg every 72 hours. 3. Hydrocodone p.r.n. 4. Levothyroxine 75 micrograms daily. 5. Omeprazole 20 mg daily. 6. Fluoxetine 20 mg daily. 7. Zolpidem 10 mg at bedtime. 8. Baclofen 10 mg t.i.d. p.r.n. SOCIAL HISTORY: Previous smoke 40 pack-years, quit 2011, previous alcohol quit 2011, previous history of IV drug use. FAMILY HISTORY: Father, myocardial infarction. Mother breast cancer. VITAL SIGNS: Temperature 98.1, blood pressure 102/65, pulse 70, respirations 16, pulse oximetry 96% on room air. REVIEW OF SYSTEMS: This is a well-nourished female currently in no acute distress. She is not experiencing shortness of breath or difficulty breathing. No chest pain, palpitations, diaphoresis. Intermittent episodes of nausea with crampy, abdominal pain in the epigastric region starting yesterday. End colostomy is functional. ASSESSMENT AND PLAN: This is a 56-year-old female with regional metastatic colon cancer. She is not fully obstructed however, most likely has a very slow transit time of small bowel secondary to tumor encasement versus extensive adhesions from local regional peritoneal metastasis. She was recently on chemotherapy and is immunocompromised and does also most likely have a hostile abdomen due to her previous surgeries, as well as metastatic implants. We feel that the risks of surgery at this time would be high. We again continued to recommend conservative management, however, she may need a prolonged admission and potential swing bed status versus LTAC. She may need IV alimentation with TPN as well as clear liquids sparingly for some amount of time in hopes of allowing for better gastrointestinal motility and toleration of more enteral feedings. We will follow oncology's recommendations. Job ID: [id number] Dictated Date: 04/27/2016 11:19:23 Bench Precision Assembler Date: 04/27/2016 11:28:22/jane BARRIOS
[2016-04-27 12:08] VITALS: BP 103/64
[2016-04-27 12:25] LABS: MAGNESIUM 1.8 MG/DL (1.8-2.4); PHOSPHORUS 3.3 MG/DL (2.3-4.7)
[2016-04-27] MEDS: POTASSIUM CL 10MEQ/50ML IVPB 50 ML IV SCH ×4 (12:45→15:58)
[2016-04-27] MEDS: METOCLOPRAMIDE INJ 10 MG/2 ML (REGLAN) IVP SCH ×2 (12:45→17:59)
[2016-04-27] MEDS ORDERED: POTASSIUM CL 10MEQ/50ML IVPB 50 ML IV SCH (12:45)
--- NOTE | 2016-04-27 13:59 | History & Physicial ---
History of Present Illness History of Present Illness Reason for visit/HPI This is a 56-year-old patient with history of metastatic colon cancer who has been re-admitted with complaints of recurrent abdominal pain, nausea and vomiting. Patient was recently discharged on 04/25/16 after being admitted on 08/01 with partial small bowel obstruction which was also conservatively managed. She was also admitted 04/12/16 to 04/18/16 with partial small bowel obstruction which was conservatively managed. She has been seen this morning by general surgeon Dr. Larry Monaco who advises admission to swing bed with prolonged parenteral nutrition of 2-3 weeks looking to improve her clinical status for possible exploratory laparotomy/lysis of adhesions/ and partial or total colectomy depending on what he finds at the time of surgery. Patient's last chemotherapy was administered on 03/30/16 and is described below. Past History is significant for: 1. 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 a. Status post 6 cycles of FOLFOX plus Vectibix initiated 09/06/14 through 12/22/15, FOLFOX was discontinued because of oxaliplatin reaction. b. Status post 6 cycles of Vectibix plus FOLFIRI initiated 01/19/16, last cycle given on 03/30/16. 2. Hypothyroidism 3. 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 5. Remote history of substance abuse and excessive alcohol use Date of Admission Apr 26, 2016 at 18:05 I consulted on this patient on 04/27/16 13:51 Attending Physician Monica Lopez MD Admitting Physician Yovana,Local Physician Consult Allergies and Home Medications Allergies Coded Allergies: oxaliplatin (Verified Allergy, Severe, 01/07/16) Home Medications Baclofen 10 Mg Tablet 5-10 MG PO TID PRN PRN MUSCLE SPASMS (Reported) Diazepam 10 Mg Tablet 10 MG PO HS (Reported) Diazepam 10 Mg Tablet 5-10 MG PO TID PRN PRN ANXIETY (Reported) Diphenoxylate HCl/Atropine 1 Each Tablet 1 TAB PO TID PRN PRN DIARRHEA (Reported ) Fentanyl 1 Each Patch.td72 75 MCG TD Q72H (Reported) Hydrocodone/Acetaminophen 1 Each Tablet 1 TAB PO Q4H PRN PRN PAIN (Reported) Levothyroxine Sodium 75 Mcg Tablet 75 MCG PO DAILY (Reported) Loperamide HCl 2 Mg Capsule 2 MG PO UD PRN PRN LOOSE STOOLS (Reported) Ondansetron HCl 8 Mg Tablet 8 MG PO Q8H PRN PRN NAUSEA (Reported) Paroxetine HCl 20 Mg Tablet 20 MG PO DAILY (Reported) Potassium Chloride 10 Meq Tablet.er 10 MEQ PO BID (Reported) Zolpidem Tartrate 10 Mg Tablet 15 MG PO HS (Reported) TAKES 1 & 1/2 (10MG) TABLET Past Meanzec-Zbwiiw-Innfiy Hx Patient Social History Alcohol Use: Denies Use Recreational Drug Use: No (20 YRS AGO HX SUICIDE ATTEMPT) Smoking Status: Former Smoker Former smoker/When Quit: Apr 17, 2010 Physical Abuse Screen: No Sexual Abuse: No Recent Foreign Travel: No Contact w/other who traveled: No Recent Hopitalizations: Yes Recent Infectious Disease Expo: No Immunizations Up To Date Tetanus Booster (TDap): Unknown Date of Pneumonia Vaccine: Jul 19, 2011 Date of Influenza Vaccine: Jan 16, 2016 Seasonal Allergies Seasonal Allergies: No Surgeries HX Surgeries: Yes (HERNIA, CYST FROM NECK, OVARIAN CYST, COLON RESECTION) Surgeries: Appendectomy, Bowel Surgery, Gallbladder, Hysterectomy Respiratory Hx Respiratory Disorders: Yes (MILD COPD, ASTHMA A CHILD) Respiratory Disorders: COPD Cardiovascular Hx Cardiovascular Disorders: No Neurological Hx Neurological Disorders: No Reproductive System Hx Reproductive Disorders: No Sexually Transmitted Disease: No HIV/AIDS: No Female Reproductive Disorders: Denies Genitourinary Hx Genitourinary Disorders: No Gastrointestinal Hx Gastrointestinal Disorders: Yes (HX COLON CANCER) Gastrointestinal Disorders: Obstructive Bowel Musculoskeletal Hx Musculoskeletal Disorders: Yes Musculoskeletal Disorders: Arthritis, Chronic Back Pain Endocrine Hx Endocrine Disorders: Yes Endocrine Disorders: Hypothyroidsim HEENT HX ENT Disorders: No (GLASSES, FULL SET OF DENTURES) Hearing Impairment: Denies Cancer Hx Cancer: Yes Cancer: Colon Psychosocial Hx Psychiatric Problems: Yes Behavioral Health Disorders: Anxiety, Depression Integumentary HX Skin/Integumentary Disorder: No Skin/Integumentary Disorders: Pruritis Blood Transfusions Hx Blood Disorders: Yes (ANEMIA) Adverse Reaction to a Blood Tr: No Reviewed Nursing Assessment Reviewed/Agree w Nursing PMH: Yes Family Medical History Significant Family History: Heart Disease Family Hx: Arthritis G8 BROTHER G8 SISTER FH: breast cancer 19 MOTHER Myocardial infarction 19 FATHER Constitutional: malaise Gastrointestinal: abdominal pain Musculoskeletal: back pain Physical Exam Vital Signs Vital Sign - Last 12Hours 04/26/16 17:00 Temp 98.0 Pulse 76 Resp 30 B/P 123/88 Pulse Ox 97 O2 Delivery Room Air Capillary Refill : Less Than 3 SecondsLess Than 3 Seconds General Appearance: Chronically ill HEENT: PERRL/EOMI Neck: Full Range of Motion Normal Inspection Non Tender Supple Respiratory: Lungs Clear Cardiovascular: Regular Rate, Rhythm No Edema No Gallop No JVD Gastrointestinal: Non Tender Soft Other (colostomy in place with a small amount of liquid stool in bed) Rectal: Deferred Back: Normal Inspection No CVA Tenderness No Vertebral Tenderness Extremity: Normal Inspection Non Tender No Calf Tenderness Neurologic/Psychiatric: Alert Oriented x3 No Motor/Sensory Deficits Normal Mood/Affect buffer machine II-XII Norm as Tested Assessment/Plan Assessment and Plan 1. Recurrent Partial Small Bowel Obstruction a. Obtain Gen Surgery consult (done). Dr. Monaco's Consultation seen and appreciated. b. Bowel rest and started on TPN 2. Metastatic colon cancer with multiple small bowel and serosal metastases initially diagnosed with PET/CT scan done in June 2015 and confirmed at exploratory laparotomy. a. Status post end colostomy placement after episode of small bowel obstruction arising from recurrent metastatic colon cancer in June 2015 3. Acute on chronic multifactorial anemia 4. Abdominal pain related to number 1--improved; 5. Hypokalemia-replacement potassium and monitor. 6. Acute on chronic diarrhea-related to number 1; C diff is negative; 7. Multiple comorbidities including chronic back pain arising from discogenic disease, depression, hypothyroidism, remote history of substance and alcohol abuse. Clinical Quality Measures DVT/VTE Risk/Contraindication: Risk Factor Score Per Nursin RFS Level Per Nursing on Admit: 4+=Very High MONICA LOPEZ MD Apr 27, 2016 13:59
[2016-04-27 16:00] VITALS: BP 130/75
[2016-04-27] MEDS ORDERED: SODIUM CHLORIDE 14.6% INJ 30 MEQ, SODIUM ACETATE INJ 50 MEQ, POTASSIUM CHLORIDE INJ 85 ... IV SCH ×11 (17:00)
[2016-04-27] MEDS ORDERED: NS IV 1000 ML 1,000 ML IV SCH (17:00)
[2016-04-27] MEDS: SODIUM CHLORIDE 14.6% INJ 30 MEQ, SODIUM ACETATE INJ 50 MEQ, POTASSIUM CHLORIDE INJ 85 ... IV SCH ×11 (17:58)
[2016-04-27 20:00] VITALS: BP 146/80
[2016-04-28] VITALS: BP 141/73
[2016-04-28] MEDS: ONDANSETRON 4 MG/2 ML (SDV) Z0FRAN IV PRN ×2 (00:59→06:06)
[2016-04-28] MEDS: METOCLOPRAMIDE INJ 10 MG/2 ML (REGLAN) IVP SCH ×4 (01:00→17:30)
[2016-04-28] MEDS: HYDROmorphone (DILAUDID) 2 MG/ML VIAL IV PRN ×5 (01:03→21:21)
[2016-04-28 04:00] VITALS: BP 124/82
[2016-04-28 08:00] VITALS: BP 102/63
[2016-04-28] MEDS: PANTOPRAZOLE 40 MG/10 ML (PROTONIX) VIAL IV SCH (09:02)
[2016-04-28 09:26] LABS: ANION GAP 5 MMOL/L (5-14); BLOOD UREA NITROGEN 5 MG/DL (7-18); BUN/CREATININE RATIO 8; CALCIUM 7.9 MG/DL (8.5-10.1); CARBON DIOXIDE 25 MMOL/L (21-32); CHLORIDE 110 MMOL/L (98-107); CREATININE SERUM 0.59 MG/DL (0.60-1.30); GFR ESTIMATED > 60; GLUCOSE 116 MG/DL (70-105); MAGNESIUM 1.9 MG/DL (1.8-2.4); POTASSIUM 3.5 MMOL/L (3.6-5.0); SODIUM 140 MMOL/L (135-145)
[2016-04-28 09:37] VITALS: BP 102/63
[2016-04-28 12:10] VITALS: BP 106/62
[2016-04-28] MEDS: POTASSIUM CL 10MEQ/50ML IVPB 50 ML IV SCH ×4 (12:29→17:10)
--- NOTE | 2016-04-28 13:38 | Progress Note (SOAP) ---
Subjective Subjective/Events-last exam NG tube fell out last night she states; She is taking in small amounts of liquid and tolerating it fairly well thus far. Objective Exam Vital Signs Date Time Temp Pulse Resp B/P Pulse Ox O2 Delivery O2 Flow Rate FiO2 04/28/16 09:00 Room Air 04/28/16 08:00 97.4 71 17 102/63 96 Room Air 04/28/16 04:00 97.6 82 17 124/82 96 Room Air 04/28/16 00:00 97.7 78 17 141/73 98 Room Air 04/27/16 21:00 Room Air 04/27/16 20:00 98.3 69 18 146/80 98 Room Air 04/27/16 16:00 98.1 82 20 130/75 97 Room Air I & O 04/28/16 07:00 Intake Total 1200 ml Output Total 2425 ml Balance -1225 ml Capillary Refill : Less Than 3 SecondsLess Than 3 Seconds General Appearance: No Apparent Distress Chronically ill HEENT: PERRL/EOMI Neck: Non Tender Supple Respiratory: Lungs Clear Cardiovascular: Regular Rate, Rhythm Gastrointestinal: normal bowel sounds other (Colostomy with small amount of liquid stool in bag;) Neurologic/Psychiatric: Alert Oriented x3 No Motor/Sensory Deficits 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 Recurrent Partial Small Bowel Obstruction a. Obtain Gen Surgery consult (done). Dr. Monaco's Consultation seen and appreciated. b. Receiving TPN; c. NG tube came out last evening. Patient is on trial of receiving small amounts of liquids. 2. Metastatic colon cancer with multiple small bowel and serosal metastases initially diagnosed with PET/CT scan done in June 2015 and confirmed at exploratory laparotomy. a. Status post end colostomy placement after episode of small bowel obstruction arising from recurrent metastatic colon cancer in June 2015 3. Acute on chronic multifactorial anemia 4. Abdominal pain related to number 1--improved; 5. Hypokalemia-replacement potassium and monitor. 6. Acute on chronic diarrhea-related to number 1; C diff is negative; 7. Multiple comorbidities including chronic back pain arising from discogenic disease, depression, hypothyroidism, remote history of substance and alcohol abuse. Diagnosis/Problems: Clinical Quality Measures DVT/VTE Risk/Contraindication: Risk Factor Score Per Nursin RFS Level Per Nursing on Admit: 4+=Very High JUN SANTACRUZ MD Apr 28, 2016 13:38
[2016-04-28 16:00] VITALS: BP 104/57
--- NOTE | 2016-04-28 16:01 | Progress Note (SOAP) ---
Subjective Subjective/Events-last exam Patient seen with Dr. Monaco. Patient reports that she is doing ok. Patient reports that NG tube came out last night. No N/V. minimal upper abdominal pain. Tolerating liquids. Patient reports passing gas and there is liquid stool in colostomy bag. No fever/chills. Review of Systems General: No Chills, No Night Sweats Gastrointestinal: : Abdominal Pain (Upper abdomen.)No: Nausea, Vomiting Objective Exam Vital Signs Date Time Temp Pulse Resp B/P Pulse Ox O2 Delivery O2 Flow Rate FiO2 04/28/16 12:10 97.2 79 16 106/62 95 Room Air 04/28/16 09:00 Room Air 04/28/16 08:00 97.4 71 17 102/63 96 Room Air 04/28/16 04:00 97.6 82 17 124/82 96 Room Air 04/28/16 00:00 97.7 78 17 141/73 98 Room Air 04/27/16 21:00 Room Air 04/27/16 20:00 98.3 69 18 146/80 98 Room Air 04/27/16 16:00 98.1 82 20 130/75 97 Room Air I & O 04/28/16 07:00 Intake Total 1200 ml Output Total 2425 ml Balance -1225 ml Capillary Refill : Less Than 3 SecondsLess Than 3 Seconds General Appearance: No Apparent Distress WD/WN Chronically ill HEENT: PERRL/EOMI Neck: Supple Respiratory: No Accessory Muscle Use No Respiratory Distress Gastrointestinal: soft tenderness (Upper abdomen. Liquid stool in colostomy.) Extremity: Normal Capillary Refill Normal Inspection Normal Range of Motion Neurologic/Psychiatric: Alert Oriented x3 Skin: Normal Color Warm/Dry Results Lab Laboratory Tests 04/28/16 08:57: Anion Gap 5, BUN/Creatinine Ratio 8, Blood Urea Nitrogen 5L, Calcium Level 7.9L , Carbon Dioxide Level 25, Chloride Level 110H, Creatinine 0.59L, Estimat Glomerular Filtration Rate > 60, Glucose Level 116H, Magnesium Level 1.9, Phosphorus Level 3.0, Potassium Level 3.5L, Sodium Level 140 Microbiology 04/26/16 Blood Culture - Preliminary, Resulted No growth Assessment/Plan Assessment/Plan Assess & Plan/Chief Complaint 56 year old female with regional metastatic colon cancer, likely has a very slow transit time of small bowel secondary to tumor encasement versus extensive adhesions from local regional peritoneal metastasis We feel that the risks of surgery at this time would be high. Will recommend conservative management. Continue TPN and IV fluids. Clear liquids. Pain and Nausea medication. Will continue to follow oncology recommendation. Diagnosis/Problems: Clinical Quality Measures DVT/VTE Risk/Contraindication: Risk Factor Score Per Nursin RFS Level Per Nursing on Admit: 4+=Very High KIARRA BARAJAS APRN Apr 28, 2016 4:01 pm
[2016-04-28] MEDS: 1/2 NS IV SOLUTION 1,000 ML IV SCH (17:10)
[2016-04-28] MEDS: SODIUM CHLORIDE 14.6% INJ 30 MEQ, SODIUM ACETATE INJ 50 MEQ, POTASSIUM CHLORIDE INJ 85 ... IV SCH ×11 (17:25)
[2016-04-29] VITALS: BP 109/60
[2016-04-29] MEDS: HYDROmorphone (DILAUDID) 2 MG/ML VIAL IV PRN ×9 (00:08→23:56)
[2016-04-29] MEDS: METOCLOPRAMIDE INJ 10 MG/2 ML (REGLAN) IVP SCH ×5 (00:08→23:56)
[2016-04-29 08:00] VITALS: BP 101/65
[2016-04-29] MEDS: PANTOPRAZOLE 40 MG/10 ML (PROTONIX) VIAL IV SCH (08:51)
[2016-04-29 10:45] LABS: ANION GAP 8 MMOL/L (5-14); BLOOD UREA NITROGEN 7 MG/DL (7-18); BUN/CREATININE RATIO 12; CALCIUM 8.2 MG/DL (8.5-10.1); CARBON DIOXIDE 22 MMOL/L (21-32); CHLORIDE 110 MMOL/L (98-107); GFR ESTIMATED > 60; GLUCOSE 77 MG/DL (70-105); POTASSIUM 3.7 MMOL/L (3.6-5.0); SODIUM 140 MMOL/L (135-145)
--- NOTE | 2016-04-29 11:52 | Progress Note (SOAP) ---
Subjective Subjective/Events-last exam doing better, tolerating clears, pain controlled. Objective Exam Vital Signs Date Time Temp Pulse Resp B/P Pulse Ox O2 Delivery O2 Flow Rate FiO2 04/29/16 08:50 Room Air 04/29/16 08:00 98.0 81 16 101/65 96 Room Air 04/29/16 00:00 97.4 70 18 109/60 98 Room Air 04/28/16 21:15 Room Air 04/28/16 16:00 98.2 68 20 104/57 97 Room Air 04/28/16 12:10 97.2 79 16 106/62 95 Room Air I & O 04/29/16 07:00 Intake Total 1750 ml Output Total 2175 ml Balance -425 ml Capillary Refill : Less Than 3 SecondsLess Than 3 Seconds General Appearance: No Apparent Distress HEENT: PERRL/EOMI Neck: Full Range of Motion Respiratory: Chest Non Tender Lungs Clear Normal Breath Sounds Cardiovascular: Regular Rate, Rhythm Gastrointestinal: normal bowel sounds soft Extremity: Normal Capillary Refill Neurologic/Psychiatric: Alert Oriented x3 Skin: Normal Color Lymphatic: No Adenopathy Results Lab Laboratory Tests 04/29/16 09:59: Anion Gap 8, BUN/Creatinine Ratio 12, Blood Urea Nitrogen 7, Calcium Level 8.2L , Carbon Dioxide Level 22, Chloride Level 110H, Creatinine 0.60, Estimat Glomerular Filtration Rate > 60, Glucose Level 77, Potassium Level 3.7, Sodium Level 140 Microbiology 04/26/16 Blood Culture - Preliminary, Resulted No growth Assessment/Plan Assessment/Plan Assess & Plan/Chief Complaint metastatic colon cancer. continue clears. continue TPN to increase protein stores. Diagnosis/Problems: Clinical Quality Measures DVT/VTE Risk/Contraindication: Risk Factor Score Per Nursin RFS Level Per Nursing on Admit: 4+=Very High RAS SHELBY MD Apr 29, 2016 11:52 am
--- NOTE | 2016-04-29 14:01 | Progress Note (SOAP) ---
Subjective Subjective/Events-last exam Denies having nausea or vomiting or abdominal pain at this time. She is taking in clear liquid but not every 4 hours because of concerns regarding exacerbation of nausea and pain. Objective Exam Vital Signs Date Time Temp Pulse Resp B/P Pulse Ox O2 Delivery O2 Flow Rate FiO2 04/29/16 08:50 Room Air 04/29/16 08:00 98.0 81 16 101/65 96 Room Air 04/29/16 00:00 97.4 70 18 109/60 98 Room Air 04/28/16 21:15 Room Air 04/28/16 16:00 98.2 68 20 104/57 97 Room Air I & O 04/29/16 07:00 Intake Total 1750 ml Output Total 2175 ml Balance -425 ml Capillary Refill : Less Than 3 SecondsLess Than 3 Seconds General Appearance: No Apparent Distress Chronically ill HEENT: PERRL/EOMI Pharynx Normal Neck: Normal Inspection Non Tender Supple Respiratory: Lungs Clear Normal Breath Sounds No Accessory Muscle Use No Respiratory Distress Cardiovascular: Regular Rate, Rhythm No Edema No Gallop Normal Peripheral Pulses Gastrointestinal: normal bowel sounds non tender soft other (colostomy bag in place with brown stool in bag;) Extremity: Normal Inspection Normal Range of Motion Non Tender No Calf Tenderness Neurologic/Psychiatric: Alert Oriented x3 No Motor/Sensory Deficits Normal 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 Recurrent Partial Small Bowel Obstruction a. Dr. Monaco, General Surgery is following. b. Receiving TPN; c. Patient is receiving small amounts of clear liquids. 2. Metastatic colon cancer with multiple small bowel and serosal metastases initially diagnosed with PET/CT scan done in June 2015 and confirmed at exploratory laparotomy. a. Status post end colostomy placement after episode of small bowel obstruction arising from recurrent metastatic colon cancer in June 2015 3. Acute on chronic multifactorial anemia 4. Abdominal pain related to number 1--improved; 5. Hypokalemia-replace potassium and monitor. 6. Multiple comorbidities including chronic back pain arising from discogenic disease, depression, hypothyroidism, remote history of substance and alcohol abuse. 7. Dr. Oneil is covering this weekend Diagnosis/Problems: Clinical Quality Measures DVT/VTE Risk/Contraindication: Risk Factor Score Per Nursin RFS Level Per Nursing on Admit: 4+=Very High JUN SANTACRUZ MD Apr 29, 2016 14:01
[2016-04-29 15:35] VITALS: BP 116/70
[2016-04-29] MEDS: SODIUM CHLORIDE 14.6% INJ 30 MEQ, SODIUM ACETATE INJ 50 MEQ, POTASSIUM CHLORIDE INJ 85 ... IV SCH ×11 (17:53)
[2016-04-29] MEDS: 1/2 NS IV SOLUTION 1,000 ML IV SCH ×2 (18:35→21:29)
[2016-04-30] VITALS: BP 133/68
[2016-04-30] MEDS: METOCLOPRAMIDE INJ 10 MG/2 ML (REGLAN) IVP SCH ×4 (05:49→23:08)
[2016-04-30] MEDS: HYDROmorphone (DILAUDID) 2 MG/ML VIAL IV PRN ×3 (05:50→20:53)
[2016-04-30] MEDS ORDERED: FENTANYL PATCH REMOVAL TP SCH (08:00)
[2016-04-30] MEDS ORDERED: fentaNYL PATCH 50 MCG (DURAGESIC) TD SCH (08:00)
[2016-04-30 09:00] VITALS: BP 115/55
--- NOTE | 2016-04-30 10:53 | Progress Note-Standard ---
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 Patient is sleeping and the nursing staff indicated that she did not want to be disturbed. No history of vomiting. Taking sips of clear liquids occasionally. Patient did not voice any other concerns to the nursing staff today. We will order lab work for tomorrow. Continue TPN. Overall prognosis poor. BEBETO RAYMUNDO Apr 30, 2016 10:53
[2016-04-30] MEDS: PANTOPRAZOLE 40 MG/10 ML (PROTONIX) VIAL IV SCH (11:39)
--- NOTE | 2016-04-30 13:06 | Progress Note (SOAP) ---
Subjective Subjective/Events-last exam doing well. tolerating clears. no abd pain. functional end colostomy. Objective Exam Vital Signs Date Time Temp Pulse Resp B/P Pulse Ox O2 Delivery O2 Flow Rate FiO2 04/30/16 08:55 Room Air 04/30/16 00:00 97.9 77 19 133/68 99 Room Air 04/29/16 20:10 97 Room Air 04/29/16 15:35 97.5 73 16 116/70 97 Room Air I & O 04/30/16 07:00 Intake Total 3430 ml Output Total 3100 ml Balance 330 ml Capillary Refill : Less Than 3 SecondsLess Than 3 Seconds General Appearance: No Apparent Distress HEENT: PERRL/EOMI Neck: Full Range of Motion Respiratory: Chest Non Tender Lungs Clear Cardiovascular: Regular Rate, Rhythm Gastrointestinal: normal bowel sounds soft Extremity: Normal Capillary Refill Neurologic/Psychiatric: Alert Oriented x3 Skin: Normal Color Lymphatic: No Adenopathy Results Lab Microbiology 04/26/16 Blood Culture - Preliminary, Resulted No growth Assessment/Plan Assessment/Plan Assess & Plan/Chief Complaint metastatic colon cancer. continue clears. continue TPN to increase protein stores. Diagnosis/Problems: Clinical Quality Measures DVT/VTE Risk/Contraindication: Risk Factor Score Per Nursin RFS Level Per Nursing on Admit: 4+=Very High RAS SHELBY MD Apr 30, 2016 1:06 pm
[2016-04-30 16:34] VITALS: BP 123/61
[2016-04-30] MEDS: SODIUM CHLORIDE 14.6% INJ 30 MEQ, SODIUM ACETATE INJ 50 MEQ, POTASSIUM CHLORIDE INJ 85 ... IV SCH ×11 (18:03)
[2016-04-30] MEDS: CATHETER FLUSH 10 ML SYR IV PRN (23:09)
[2016-05-01] VITALS: BP 126/71
[2016-05-01] MEDS: HYDROmorphone (DILAUDID) 2 MG/ML VIAL IV PRN ×6 (01:14→21:11)
[2016-05-01] MEDS: 1/2 NS IV SOLUTION 1,000 ML IV SCH (01:34)
[2016-05-01] MEDS: METOCLOPRAMIDE INJ 10 MG/2 ML (REGLAN) IVP SCH ×3 (05:03→17:04)
[2016-05-01] MEDS: CATHETER FLUSH 10 ML SYR IV PRN ×4 (05:04→21:11)
[2016-05-01 05:47] LABS: BASOPHILS % (AUTO) 1 % (0-10); EOSINOPHILS # (AUTO) 0.1 10^3/uL (0.0-0.3); EOSINOPHILS % (AUTO) 1 % (0-10); LYMPHOCYTES # (AUTO) 2.5 X 10^3 (1.0-4.0); LYMPHOCYTES % (AUTO) 46 % (12-44); MEAN CORPUSCULAR HEMOGLOBIN 28 PG (25-34); MEAN CORPUSCULAR HGB CONC 31 G/DL (32-36); MEAN CORPUSCULAR VOLUME 90 FL (80-99); MEAN PLATELET VOLUME 12.2 FL (7.4-10.4); MONOCYTES # (AUTO) 0.6 X 10^3 (0.0-1.0); MONOCYTES % (AUTO) 11 % (0-12); NEUTROPHILS # (AUTO) 2.2 X 10^3 (1.8-7.8); NEUTROPHILS % (AUTO) 41 % (42-75); PLATELET COUNT 207 10^3/uL (130-400); RED BLOOD COUNT 3.22 10^6/uL (4.35-5.85); RED CELL DISTRIBUTION WIDTH 17.6 % (10.0-14.5); WHITE BLOOD COUNT 5.4 10^3/uL (4.3-11.0)
[2016-05-01 05:59] LABS: ALANINE AMINOTRANSFERASE 11 U/L (0-55); ALBUMIN 2.9 G/DL (3.2-4.5); ANION GAP 7 MMOL/L (5-14); ASPARTATE AMINO TRANSFERASE 20 U/L (5-34); BILIRUBIN,TOTAL 0.4 MG/DL (0.1-1.0); BLOOD UREA NITROGEN 10 MG/DL (7-18); BUN/CREATININE RATIO 19; CARBON DIOXIDE 21 MMOL/L (21-32); CHLORIDE 112 MMOL/L (98-107); CREATININE SERUM 0.52 MG/DL (0.60-1.30); GFR ESTIMATED > 60; GLUCOSE 73 MG/DL (70-105); POTASSIUM 4.1 MMOL/L (3.6-5.0); SODIUM 140 MMOL/L (135-145); TOTAL PROTEIN 5.2 G/DL (6.4-8.2)
[2016-05-01 08:00] VITALS: BP 102/57
[2016-05-01] MEDS: PANTOPRAZOLE 40 MG/10 ML (PROTONIX) VIAL IV SCH (09:35)
--- NOTE | 2016-05-01 11:10 | Progress Note (SOAP) ---
Subjective Subjective/Events-last exam doing ok. clinical status unchanged. still able to tolerate liquids and has functional end colostomy. Objective Exam Vital Signs Date Time Temp Pulse Resp B/P Pulse Ox O2 Delivery O2 Flow Rate FiO2 05/01/16 08:50 Room Air 05/01/16 08:00 97.1 69 18 102/57 99 Room Air 05/01/16 00:00 96.5 78 16 126/71 98 Room Air 04/30/16 20:55 97 Room Air 04/30/16 16:34 96.8 86 20 123/61 96 Room Air I & O 05/01/16 07:00 Intake Total 2310 ml Output Total 3425 ml Balance -1115 ml Capillary Refill : Less Than 3 SecondsLess Than 3 Seconds General Appearance: No Apparent Distress HEENT: PERRL/EOMI Respiratory: Chest Non Tender Lungs Clear Normal Breath Sounds Cardiovascular: Regular Rate, Rhythm Gastrointestinal: soft Extremity: Normal Capillary Refill Neurologic/Psychiatric: Alert Oriented x3 Skin: Normal Color Lymphatic: No Adenopathy Results Lab Laboratory Tests 05/01/16 05:29: Alanine Aminotransferase (ALT/SGPT) 11, Albumin 2.9L, Alkaline Phosphatase 69, Anion Gap 7, Aspartate Amino Transf (AST/SGOT) 20, BUN/Creatinine Ratio 19, Basophils # (Auto) 0.0, Basophils (%) (Auto) 1, Blood Urea Nitrogen 10, Calcium Level 8.0L, Carbon Dioxide Level 21, Chloride Level 112H, Creatinine 0.52L, Eosinophils # (Auto) 0.1, Eosinophils (%) (Auto) 1, Estimat Glomerular Filtration Rate > 60, Glucose Level 73, Hematocrit 29L, Hemoglobin 9.1L, Lymphocytes # (Auto) 2.5, Lymphocytes (%) (Auto) 46H, Magnesium Level 2.0, Mean Corpuscular Hemoglobin 28, Mean Corpuscular Hemoglobin Concent 31L, Mean Corpuscular Volume 90, Mean Platelet Volume 12.2H, Monocytes # (Auto) 0.6, Monocytes (%) (Auto) 11, Neutrophils # (Auto) 2.2, Neutrophils (%) (Auto) 41L, Platelet Count 207, Potassium Level 4.1, Red Blood Count 3.22L, Red Cell Distribution Width 17.6H, Sodium Level 140, Total Bilirubin 0.4, Total Protein 5.2L, White Blood Count 5.4 Microbiology 04/26/16 Blood Culture - Preliminary, Resulted No growth Assessment/Plan Assessment/Plan Assess & Plan/Chief Complaint metastatic colon cancer. continue clears. continue TPN to increase protein stores. possible surgery at tertiary center when nutritional status improved. will likely need tumor debulking, pelvic exenteration, lysis of adhesion, completion subtotal colectomy and end ileostomy. Diagnosis/Problems: Clinical Quality Measures DVT/VTE Risk/Contraindication: Risk Factor Score Per Nursin RFS Level Per Nursing on Admit: 4+=Very High RAS SHELBY MD May 01, 2016 11:10 am
--- NOTE | 2016-05-01 12:19 | Progress Note-Standard ---
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 Patient is awake and feeling good today. No history of nausea or vomiting. she had 3 formed stools today. Taking sips of clear liquids. I have discussed the case with Dr. Monaco and we both agree that patient would benefit from exploration and consideration of HIPEC. Dr. Monaco will contact Dr. Kemp at [facility] early next week to see if the patient would be a candidate for this. I have also discussed this with the patient and answered her questions. She wants to talk to her family also prior to obtaining a consultation for the HIPEC. Continue TPN for now. Diet being advanced slightly today. Overall prognosis poor. BEBETO RAYMUNDO May 01, 2016 12:19
[2016-05-01 16:00] VITALS: BP 118/63
[2016-05-01] MEDS: SODIUM CHLORIDE 14.6% INJ 30 MEQ, SODIUM ACETATE INJ 50 MEQ, POTASSIUM CHLORIDE INJ 85 ... IV SCH ×11 (17:05)
[2016-05-01 19:55] VITALS: BP 116/71
[2016-05-01] MEDS: ONDANSETRON 4 MG/2 ML (SDV) Z0FRAN IV PRN (19:57)
[2016-05-02] VITALS: BP 124/71
[2016-05-02] MEDS: METOCLOPRAMIDE INJ 10 MG/2 ML (REGLAN) IVP SCH ×3 (00:12→12:00)
[2016-05-02] MEDS: CATHETER FLUSH 10 ML SYR IV PRN ×2 (00:12→00:48)
[2016-05-02] MEDS: HYDROmorphone (DILAUDID) 2 MG/ML VIAL IV PRN ×4 (00:48→13:11)
[2016-05-02] MEDS: 1/2 NS IV SOLUTION 1,000 ML IV SCH (05:24)
[2016-05-02] MEDS: PANTOPRAZOLE 40 MG/10 ML (PROTONIX) VIAL IV SCH (07:56)
[2016-05-02 08:00] VITALS: BP 93/52
[2016-05-02] MEDS ORDERED: PARoxetine 20 MG (PAXIL) TAB PO SCH (09:00)
[2016-05-02 12:00] VITALS: BP 104/55
[2016-05-02] MEDS: ONDANSETRON 4 MG/2 ML (SDV) Z0FRAN IV PRN (14:55)
--- NOTE | 2016-05-02 16:01 | Progress Note (SOAP) ---
Subjective Subjective/Events-last exam doing better, tolerating clears and soft diet. functional end colostomy. pain controlled. Objective Exam Vital Signs Date Time Temp Pulse Resp B/P Pulse Ox O2 Delivery O2 Flow Rate FiO2 05/02/16 12:00 96.7 79 22 104/55 97 Room Air 05/02/16 08:00 Room Air 05/02/16 08:00 95.0 70 16 93/52 98 Room Air 05/02/16 00:00 96.9 76 20 124/71 100 Room Air 05/01/16 20:00 97 Room Air 05/01/16 19:55 97.0 74 20 116/71 100 Room Air 05/01/16 16:00 96.0 73 22 118/63 100 Room Air I & O 05/02/16 07:00 Intake Total 2830 ml Output Total 3265 ml Balance -435 ml Capillary Refill : Less Than 3 SecondsLess Than 3 Seconds General Appearance: No Apparent Distress HEENT: PERRL/EOMI Neck: Full Range of Motion Respiratory: Chest Non Tender Lungs Clear Normal Breath Sounds Cardiovascular: Regular Rate, Rhythm Gastrointestinal: normal bowel sounds soft Extremity: Normal Capillary Refill Neurologic/Psychiatric: Alert Oriented x3 Skin: Normal Color Lymphatic: No Adenopathy Results Lab Laboratory Tests 05/02/16 06:15: Glucometer 96 Microbiology 04/26/16 Blood Culture - Final, Complete No growth Assessment/Plan Assessment/Plan Assess & Plan/Chief Complaint metastatic colon cancer. continue clears. continue TPN to increase protein stores. possible surgery at tertiary center when nutritional status improved. will likely need tumor debulking, pelvic exenteration, lysis of adhesion, completion subtotal colectomy and end ileostomy. will d/c home and contact oncologic surgery at for referral. Diagnosis/Problems: Clinical Quality Measures DVT/VTE Risk/Contraindication: Risk Factor Score Per Nursin RFS Level Per Nursing on Admit: 4+=Very High RAS SHELBY MD May 02, 2016 16:01
--- NOTE | 2016-05-02 16:05 | Discharge Inst-Surgical ---
D/C Lap Instructions-HERON Will call oncologic surgery for referral(Dr. Rere Sauceda) Activity as tolerated No driving for [address] hours [address] while on pain medications clear liquid diet(including protein shakes) taken in small doses. 60ml every 30 minutes. no large food boluses. Avoid Alcohol, Caffeine, Spicy [place] and Acid foods. Drink 64 fluid oz or more of fluids per day. Symptoms to Report: Fever over 101 degree F, Nausea/Vomiting If any problems/questions: Contact your physician or go to Emergency Room RAS SHELBY MD May 02, 2016 16:05
[2016-05-02 16:27] VITALS: BP 104/55
--- NOTE | 2016-05-02 16:55 | Discharge Summary ---
Diagnosis/Chief Complaint Date of Admission Apr 26, 2016 at 18:05 Date of Discharge May 02, 2016 at 16:30 Discharge Date: Admission Diagnosis Admission Diagnosis 1. Recurrent Partial Small Bowel Obstruction a. Obtain Gen Surgery consult (done). Dr. Shelby's Consultation seen and appreciated. b. Bowel rest and started on TPN 2. Metastatic colon cancer with multiple small bowel and serosal metastases initially diagnosed with PET/CT scan done in June 2015 and confirmed at exploratory laparotomy. a. Status post end colostomy placement after episode of small bowel obstruction arising from recurrent metastatic colon cancer in June 2015 3. Acute on chronic multifactorial anemia 4. Abdominal pain related to number 1--improved; 5. Hypokalemia-replacement potassium and monitor. 6. Acute on chronic diarrhea-related to number 1; C diff is negative; 7. Multiple comorbidities including chronic back pain arising from discogenic disease, depression, hypothyroidism, remote history of substance and alcohol abuse. Discharge Diagnosis 1. Recurrent Partial Small Bowel Obstruction a. Patient is currently able to keep down clear liquids without pain. b. Patient has been discharged by Dr. SHELBY today and will follow up with Dr. Collazo at [facility] regarding possible extensive surgery including total colectomy and pelvic exenteration followed by possible HIPEC. I had discussed this as a possible option with Dr. Shelby and the patient on . 2. Metastatic colon cancer with multiple small bowel and serosal metastases initially diagnosed with PET/CT scan done in June 2015 and confirmed at exploratory laparotomy. a. Status post end colostomy placement after episode of small bowel obstruction arising from recurrent metastatic colon cancer in June 2015 3. Acute on chronic multifactorial anemia 4. Abdominal pain related to number 1--improved; 5. Hypokalemia-replace potassium and monitor. 6. Multiple comorbidities including chronic back pain arising from discogenic disease, depression, hypothyroidism, remote history of substance and alcohol abuse. Discharge Summary Discharge Physical Examination Allergies: Coded Allergies: oxaliplatin (Verified Allergy, Severe, 01/07/16) Vitals & I&Os Vital Signs Date Time Temp Pulse Resp B/P Pulse Ox O2 Delivery O2 Flow Rate FiO2 05/02/16 16:27 79 22 104/55 97 05/02/16 12:00 96.7 Room Air 04/30/16 16:34 General Appearance: Alert, Oriented X3, Cooperative HEENT: PERRLA Respiratory: Clear to Auscultation Cardiovascular: Regular Rate Abdominal: Normal Bowel Sounds, Soft, Other (ileostomy bag in place;) Skin: No Rashes Neuro: Normal Gait, Normal Speech Psych/Mental Status: Mental Status NL Hospital Course Patient received bowel rest with the initial placement of NG tube. Abdominal pain improve. TPN was initiated. NG tube fell out and patient was started on clear liquids. She Is currently able to keep down clear liquids without pain. She was stable for discharge today. Patient has been discharged by Dr. SHELBY today and will follow up with Dr. Collazo at [facility] regarding possible extensive surgery including total colectomy and pelvic exenteration followed by possible HIPEC. I had discussed this as a possible option with Dr. Shelby and the patient on 04/26/16. Discharge Instructions to patient/family Please see electonic discharge instructions given to patient. Discharge Medications Reviewed and agree with Discharge Medication list on patient's Discharge Instruction sheet Clinical Quality Measures DVT/VTE Risk/Contraindication: Risk Factor Score Per Nursin RFS Level Per Nursing on Admit: 4+=Very High JUN SANTACRUZ MD May 02, 2016 16:55
[2016-05-02] MEDS ORDERED: SODIUM ACETATE IV SCH ×10 (17:00)
[2016-05-02] MEDS ORDERED: SODIUM PHOSPHATE IV SCH ×10 (17:00)
[2016-05-02] MEDS ORDERED: POTASSIUM CHLORIDE IV SCH ×10 (17:00)
[2016-05-02] MEDS ORDERED: [UNRECOGNIZED DRUG - OTHER] IV SCH ×10 (17:00)
== END 2016-05-02 16:30 | disposition home or self-care (01) | DRG 389 ==
LOC: EDUNIT# 16:37 → ER 16:39 → 4TH 18:05
PROVIDERS: ADMIT Internal Medicine Hematology & Oncology; ATTEND Internal Medicine Hematology & Oncology
PROC: 0D9670Z Drainage of Stomach with Drainage Device, Via Natural or Artificial Opening (ICD-10-PCS; principal; 2016-04-26)
DX: K56.69 Other intestinal obstruction (principal); C78.4 Secondary malignant neoplasm of small intestine; J44.9 Chronic obstructive pulmonary disease, unspecified; J45.909 Unspecified asthma, uncomplicated; E03.9 Hypothyroidism, unspecified; D64.9 Anemia, unspecified; F41.9 Anxiety disorder, unspecified; F32.9 Major depressive disorder, single episode, unspecified; K21.9 Gastro-esophageal reflux disease without esophagitis; M54.9 Dorsalgia, unspecified; E87.6 Hypokalemia; Z93.3 Colostomy status; Z85.038 Personal history of other malignant neoplasm of large intestine; Z87.891 Personal history of nicotine dependence; Z86.19 Personal history of other infectious and parasitic diseases; Z92.21 Personal history of antineoplastic chemotherapy; Z90.49 Acquired absence of other specified parts of digestive tract
CPT/HCPCS: 36415; 71010; 80048; 80053; 82962; 83605; 83735; 84100; 84134; 84478; 85025; 86141; 87040; 96361; 96374; 96375; 96376